=== PATIENT | female | born 1980 | race American Indian/Alaskan Native ===

== ENCOUNTER 2016-07-26 07:15 | Emergency (ER) | payer BC ==
[2016-07-26 07:25] VITALS: BP 121/83
--- NOTE | 2016-07-26 07:52 | EDM.PDOC ---
ED HPI GENERAL MEDICAL PROBLEM - General Chief Complaint: Fever Stated Complaint: hi fever [phone] Time Seen by Provider: 07/26/16 07:44 Source of Information: Reports: Patient History Limitations: Reports: No Limitations - History of Present Illness INITIAL COMMENTS - FREE TEXT/NARRATIVE: Pt states that she has been treated for strep throat and antibiotic ended on Thursday, she began having body aches, cough and fever as high as 100.6. C/o productive cough since thursday. 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, Other Medication(s) (hydrocodone and OTC cough medication) Generalized Pain Score (Numeric/FACES): 7 - Related Data Allergies Allergy/AdvReac Type Severity Reaction Status Date / Time clindamycin Allergy Hives Verified 07/26/16 07:27 Home Meds: Home Meds Omeprazole [Prilosec] 2 tab PO DAILY 08/10/14 [History] Hydrocodone/Acetaminophen [[place] 10-325 Tablet] 1 tab PO BEDTIME 12/16/15 [ History] Sertraline HCl [Zoloft] 1 tab PO DAILY 12/16/15 [History] Past Medical History HEENT History: Reports: Other (See Below) Other HEENT History: wears glasses Cardiovascular History: Reports: None Respiratory History: Reports: None Gastrointestinal History: Reports: GERD, Helicobacter Pylori Other Gastrointestinal History: H-pilori Genitourinary History: Reports: None 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: Musculoskeletal History: Reports: Other (See Below) Other Musculoskeletal History: plantar fasciitis Neurological History: Reports: None Psychiatric History: Reports: Anxiety Endocrine/Metabolic History: Reports: None Hematologic History: Reports: None Immunologic History: Reports: None Oncologic (Cancer) History: Reports: None Dermatologic History: Reports: Other (See Below) Other Dermatologic History: MRSA - Infectious Disease History Infectious Disease History: Reports: MRSA - Past Surgical History Other HEENT Surgeries/Procedures: DX; Strepthroat 01/15/15 Social & Family History - Family History Family Medical History: Noncontributory Endocrine/Metabolic: Reports: Diabetes, type II Oncologic: Reports: Breast, Lung - Tobacco Use Smoking Status *Q: Never Smoker Years of Tobacco use: 7 Month Tobacco Last Used: 07/26/2000 Second Hand Smoke Exposure: No - Caffeine Use Caffeine Use: Reports: Tea - Recreational Drug Use Recreational Drug Use: No - Living Situation & Occupation Living situation: Reports: with Family ED ROS GENERAL - Review of Systems Review Of Systems: See Below Constitutional: Reports: Fever, Malaise HEENT: Reports: Throat Pain Respiratory: Reports: Wheezing, Cough ED EXAM, GENERAL - Physical Exam Exam: See Below Exam Limited By: No Limitations General Appearance: Alert, WD/WN, No Apparent Distress Eye Exam: Bilateral Eye: Normal Inspection, PERRL Ears: Normal External Exam, Normal Canal, Hearing Grossly Normal Ear Exam: Right Ear: TM Dull, Left Ear: TM normal (R mild effusion) Nose: Normal Inspection, Normal Mucosa, No Blood Throat/Mouth: Normal Inspection, Normal Lips, Normal Teeth, Normal Gums, Normal Oropharynx, Normal Voice, No Airway Compromise Neck: Normal Inspection, Supple, Non-Tender, Full Range of Motion Respiratory/Chest: No Respiratory Distress, Crackles (R lung throughout, greater at bases, L lung WNL) Cardiovascular: Normal Peripheral Pulses, Regular Rate, Rhythm, No Edema, No Gallop, No JVD, No Murmur, No Rub GI/Abdominal: Normal Bowel Sounds, Soft, Non-Tender, No Organomegaly, No Distention, No Abnormal Bruit, No Mass Neurological: Alert, Oriented, CN II-XII Intact, Normal Cognition, Normal Gait, Normal Reflexes, No Motor/Sensory Deficits Skin Exam: Warm, Dry, Intact, Normal Color, Rash (BUE with mild erythematous rash to dorsum of forearms. ) Course - Vital Signs Last Recorded V/S: Last Vital Signs Temp 98.2 F 07/26/16 07:21 Pulse 109 H 07/26/16 07:21 Resp 16 07/26/16 07:21 BP 121/83 07/26/16 07:21 Pulse Ox 94 L 07/26/16 07:21 - Orders/Labs/Meds Orders: Active Orders 24 hr Category Date Time Status Chest 2V [CR] Stat Exams 07/26/16 07:58 Taken Sodium Chloride 0.9% [Saline Flush] Med 07/26/16 07:58 Active 10 ml FLUSH ASDIRECTED PRN Saline Lock Insert [OM.PC] Stat Oth 07/26/16 07:58 Ordered Medication Orders Sodium Chloride (Saline Flush) 10 ml FLUSH ASDIRECTED PRN PRN Reason: Keep Vein Open Last Admin: 07/26/16 08:28 Dose: 10 ml Labs: Laboratory Tests 07/26/16 07/26/16 07/26/16 Range/Units 08:09 08:09 08:17 WBC 13.4 H (5.0-10.0) 10^3/uL RBC 4.59 (4.2-5.4) 10^6/uL Hgb 13.3 (12.0-16.0) g/dL Hct 40.5 (37.0-47.0) % MCV 88.2 (80-100) fL MCH 29.0 (27.0-34.0) pg MCHC 32.8 L (33.0-35.0) g/dL Plt Count 285 (150-450) 10^3/uL Neut % (Auto) 84.8 H (42.2-75.2) % Lymph % (Auto) 7.4 L (20.5-50.1) % [place] % (Auto) 3.9 (2-8) % Eos % (Auto) 3.8 H (1.0-3.0) % Baso % (Auto) 0.1 (0.0-1.0) % Sodium 137 (135-145) mmol/L Potassium 3.9 (3.6-5.0) mmol/L Chloride 105 (101-111) mmol/L Carbon Dioxide 21.0 (21.0-31.0) mmol/L Anion Gap 14.9 BUN 5 L (7-18) mg/dL Creatinine 0.7 (0.6-1.3) mg/dL Est Cr Clr Drug Dosing 107.00 mL/min Estimated GFR (MDRD) > 60 Glucose 119 H (74-105) mg/dL Calcium 8.8 (8.4-10.2) mg/dl Urine HCG, Qual Negative Meds: Medications Generic Name Dose Route Start Last Admin Trade Name Freq PRN Reason Stop Dose Admin Sodium Chloride 10 ml 07/26/16 07:58 07/26/16 08:28 Saline Flush FLUSH 10 ml ASDIRECTED PRN Administration Keep Vein Open Discontinued Medications Generic Name Dose Route Start Last Admin Trade Name Freq PRN Reason Stop Dose Admin Sodium Chloride 500 mls @ 1,000 mls/hr 07/26/16 08:01 07/26/16 08:28 Normal Saline IV 07/26/16 08:30 1,000 mls/hr .BOLUS ONE Administration - Radiology Interpretation Free Text/Narrative:: patchy R lower lobe infiltrates, will treat for pneumonia Departure - Departure Time of Disposition: 09:33 Disposition: Home, Self-Care 01 Condition: Good Clinical Impression: Pneumonia Qualifiers: Pneumonia type: due to unspecified organism Laterality: right Lung location: lower lobe of lung Qualified Code(s): J18.1 - Lobar pneumonia, unspecified organism - Discharge Information Instructions: Atelectasis, Adult, Pneumonia, Child, Fever, Adult, [id number] Forms: ED Department Discharge Additional Instructions: Take the levaquin 750mg every day for 7 days 1 hours before or 2 hours after eating. Return for any worsening symptoms, shortness of breath or chest pain. Take OTC tylenol or motrin for fever. drink plenty of fluids to stay hydrated. Take albuterol inhaler for any shortness of breath. - My Orders Last 24 Hours: My Active Orders 07/26/16 07:58 Chest 2V [CR] Stat Sodium Chloride 0.9% [Saline Flush] 10 ml FLUSH ASDIRECTED PRN Saline Lock Insert [OM.PC] Stat - Assessment/Plan Last 24 Hours: My Active Orders 07/26/16 07:58 Chest 2V [CR] Stat Sodium Chloride 0.9% [Saline Flush] 10 ml FLUSH ASDIRECTED PRN Saline Lock Insert [OM.PC] Stat
[2016-07-26] MEDS ORDERED: Sodium Chloride 0.9% 10 ML Syringe FLUSH PRN (07:58)
[2016-07-26] MEDS ORDERED: Sodium Chloride 0.9% 500 ML IV ONE (08:01)
[2016-07-26 08:33] LABS: CHLORIDE,CL 105 mmol/L (101-111); SODIUM,NA 137 mmol/L (135-145)
== END 2016-07-26 09:57 | disposition home or self-care (01) ==
LOC: DL.ED 07:15
DX: J18.9 Pneumonia, unspecified organism (principal); K21.9 Gastro-esophageal reflux disease without esophagitis; F41.9 Anxiety disorder, unspecified; Z88.1 Allergy status to other antibiotic agents; Z79.899 Other long term (current) drug therapy
CPT/HCPCS: 36415; 71020; 80048; 81025; 85025; 96360; 99283; J7030; J7050

== ENCOUNTER 2016-08-13 11:02 | Emergency (ER) | payer BC ==
[2016-08-13 11:49] VITALS: BP 137/93
--- NOTE | 2016-08-13 11:53 | EDM.PDOC ---
ED HPI GENERAL MEDICAL PROBLEM - General Chief Complaint: Gastrointestinal Problem Stated Complaint: SICK [phone] Time Seen by Provider: 08/13/16 11:53 Source of Information: Reports: Patient, Old Records, RN, RN Notes Reviewed History Limitations: Reports: No Limitations - History of Present Illness INITIAL COMMENTS - FREE TEXT/NARRATIVE: Arrives from home by POV with c/o waking with upper abdominal pain and nausea. Pt states that she has felt feverish and hot on and off today. Yesterday she felt well, and was well when she went to bed last night. She was Dx'd with pneumonia approx. 2 weeks ago and recently completed a course of antibiotics. Admits to mild residual cough, and decreased appetite today. Denies vomiting, diarrhea, or constipation. Onset: Today Duration: Constant Location: Reports: Abdomen Quality: Reports: Ache Severity: Moderate Improves with: Reports: None Worsens with: Reports: None Context: Denies: Activity, Exercise, Lifting, Sick Contact, Trauma Associated Symptoms: Reports: No Other Symptoms - Related Data Allergies Allergy/AdvReac Type Severity Reaction Status Date / Time clindamycin Allergy Hives Verified 07/26/16 07:27 Home Meds: Home Meds Omeprazole [Prilosec] 2 tab PO DAILY 08/10/14 [History] Hydrocodone/Acetaminophen [[place] 10-325 Tablet] 1 tab PO BEDTIME 12/16/15 [ History] Sertraline HCl [Zoloft] 1 tab PO DAILY 12/16/15 [History] Past Medical History HEENT History: Reports: Other (See Below) Other HEENT History: wears glasses Cardiovascular History: Reports: None Respiratory History: Reports: None Gastrointestinal History: Reports: GERD, Helicobacter Pylori Other Gastrointestinal History: H-pilori Genitourinary History: Reports: None 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: Musculoskeletal History: Reports: Other (See Below) Other Musculoskeletal History: plantar fasciitis Neurological History: Reports: None Psychiatric History: Reports: Anxiety Endocrine/Metabolic History: Reports: None Hematologic History: Reports: None Immunologic History: Reports: None Oncologic (Cancer) History: Reports: None Dermatologic History: Reports: Other (See Below) Other Dermatologic History: MRSA - Infectious Disease History Infectious Disease History: Reports: MRSA - Past Surgical History Other HEENT Surgeries/Procedures: DX; Strepthroat 01/15/15 Social & Family History - Family History Family Medical History: Noncontributory Endocrine/Metabolic: Reports: Diabetes, type II Oncologic: Reports: Breast, Lung - Tobacco Use Smoking Status *Q: Never Smoker Years of Tobacco use: 7 Month Tobacco Last Used: 07/26/2000 Second Hand Smoke Exposure: No - Caffeine Use Caffeine Use: Reports: Tea - Recreational Drug Use Recreational Drug Use: No - Living Situation & Occupation Living situation: Reports: with Family ED ROS GENERAL - Review of Systems Review Of Systems: ROS reveals no pertinent complaints other than HPI. ED EXAM, GI/ABD - Physical Exam Exam: See Below Exam Limited By: No Limitations General Appearance: Alert, WD/WN, No Apparent Distress Nose: Normal Inspection Throat/Mouth: Normal Lips, Normal Teeth, Normal Gums, Normal Oropharynx, Normal Voice, No Airway Compromise, Other (dry oral membranes) Head: Atraumatic, Normocephalic Neck: Normal Inspection, Supple, Non-Tender, Full Range of Motion. No: Lymphadenopathy (L), Lymphadenopathy (R) Respiratory/Chest: No Respiratory Distress, No Accessory Muscle Use, Chest Non- Tender, Rhonchi (faint rhonchi at Rt posterior mid-lung field). No: Crackles, Rales, Wheezing Cardiovascular: Regular Rate, Rhythm GI/Abdominal: Normal Bowel Sounds, Soft, Non-Tender, No Organomegaly, No Distention, No Abnormal Bruit, No Mass, Other (moderately obese abdomen) (Female) Exam: Deferred Rectal (Female) Exam: Deferred Back Exam: Normal Inspection. No: CVA Tenderness (L), CVA Tenderness (R) Extremities: Normal Inspection, Normal Range of Motion, Non-Tender, Normal Capillary Refill, No Pedal Edema Neurological: Alert, Oriented, CN II-XII Intact, Normal Cognition, Normal Gait, No Motor/Sensory Deficits Psychiatric: Normal Affect, Normal Mood Skin Exam: Warm, Dry, Intact, Normal Color, No Rash Course - Vital Signs Last Recorded V/S: Last Vital Signs Temp 36.6 C 08/13/16 11:48 Pulse 73 08/13/16 11:48 Resp 18 08/13/16 11:48 BP 137/93 H 08/13/16 11:48 Pulse Ox 100 08/13/16 11:48 - Orders/Labs/Meds Orders: Active Orders 24 hr Category Date Time Status Peripheral IV Care [RC] . DIRECTED Care 08/13/16 12:11 Active CHLAMYDIA TRACHOMATIS/GC AMPLF Routine Lab 08/13/16 12:21 Received CULTURE URINE [RM] Stat Lab 08/13/16 12:21 Received Sodium Chloride 0.9% [Normal Saline] 1,000 ml Med 08/13/16 12:12 Active IV .BOLUS Sodium Chloride 0.9% [Saline Flush] Med 08/13/16 12:11 Active 10 ml FLUSH ASDIRECTED PRN cefTRIAXone [Rocephin] 1 gm Med 08/13/16 13:02 Active Sodium Chloride 0.9% [Normal Saline] 50 ml IV ONETIME Peripheral IV Insertion Adult [OM.PC] Stat Oth 08/13/16 12:11 Ordered Medication Orders Sodium Chloride (Normal Saline) 1,000 mls @ 999 mls/hr IV .BOLUS ONE Stop: 08/13/16 13:12 Last Admin: 08/13/16 12:35 Dose: 999 mls/hr Ceftriaxone Sodium 1 gm/ (Sodium Chloride) 50 mls @ 100 mls/hr IV ONETIME ONE Stop: 08/13/16 13:31 Sodium Chloride (Saline Flush) 10 ml FLUSH ASDIRECTED PRN PRN Reason: Keep Vein Open Last Admin: 08/13/16 12:36 Dose: 10 ml Labs: Laboratory Tests 08/13/16 08/13/16 08/13/16 Range/Units 12:21 12:21 12:24 WBC 9.8 (5.0-10.0) 10^3/uL RBC 4.63 (4.2-5.4) 10^6/uL Hgb 13.3 (12.0-16.0) g/dL Hct 41.5 (37.0-47.0) % MCV 89.6 (80-100) fL MCH 28.7 (27.0-34.0) pg MCHC 32.0 L (33.0-35.0) g/dL Plt Count 385 (150-450) 10^3/uL Neut % (Auto) 64.8 (42.2-75.2) % Lymph % (Auto) 25.6 (20.5-50.1) % [place] % (Auto) 6.0 (2-8) % Eos % (Auto) 3.3 H (1.0-3.0) % Baso % (Auto) 0.3 (0.0-1.0) % Sodium (135-145) mmol/L Urine Color Yellow (YELLOW) Urine Appearance Clear (CLEAR) Urine pH 6.0 (5.0-9.0) Ur Specific [place] 1.020 (1.005-1.030) Urine Protein Negative (NEGATIVE) Urine Glucose (UA) Negative (NEGATIVE) Urine Ketones Negative (NEGATIVE) Urine Occult Blood Negative (NEGATIVE) Urine Nitrite Negative (NEGATIVE) Urine Bilirubin Negative (NEGATIVE) Urine Urobilinogen 0.2 (0.2-1.0) mg/dL Ur Leukocyte Esterase Trace H (NEGATIVE) Urine RBC 0-5 /HPF Urine WBC 10-20 H (0-5/HPF) /HPF Ur Epithelial Cells Few /HPF Urine Bacteria Moderate H (0-FEW/HPF) /HPF Urine Mucus Not seen /LPF Urine HCG, Qual Negative 08/13/16 Range/Units 12:24 WBC (5.0-10.0) 10^3/uL RBC (4.2-5.4) 10^6/uL Hgb (12.0-16.0) g/dL Hct (37.0-47.0) % MCV (80-100) fL MCH (27.0-34.0) pg MCHC (33.0-35.0) g/dL Plt Count (150-450) 10^3/uL Neut % (Auto) (42.2-75.2) % Lymph % (Auto) (20.5-50.1) % [place] % (Auto) (2-8) % Eos % (Auto) (1.0-3.0) % Baso % (Auto) (0.0-1.0) % Sodium 139 (135-145) mmol/L Urine Color (YELLOW) Urine Appearance (CLEAR) Urine pH (5.0-9.0) Ur Specific [place] (1.005-1.030) Urine Protein (NEGATIVE) Urine Glucose (UA) (NEGATIVE) Urine Ketones (NEGATIVE) Urine Occult Blood (NEGATIVE) Urine Nitrite (NEGATIVE) Urine Bilirubin (NEGATIVE) Urine Urobilinogen (0.2-1.0) mg/dL Ur Leukocyte Esterase (NEGATIVE) Urine RBC /HPF Urine WBC (0-5/HPF) /HPF Ur Epithelial Cells /HPF Urine Bacteria (0-FEW/HPF) /HPF Urine Mucus /LPF Urine HCG, Qual See scanned entry for CMP results (lab analyzer is down, clinic processed CMP). Meds: Medications Generic Name Dose Route Start Last Admin Trade Name Freq PRN Reason Stop Dose Admin Sodium Chloride 1,000 mls @ 999 mls/hr 08/13/16 12:12 08/13/16 12:35 Normal Saline IV 08/13/16 13:12 999 mls/hr .BOLUS ONE Administration Ceftriaxone Sodium 1 gm/ 50 mls @ 100 mls/hr 08/13/16 13:02 Sodium Chloride IV 08/13/16 13:31 ONETIME ONE Sodium Chloride 10 ml 08/13/16 12:11 08/13/16 12:36 Saline Flush FLUSH 10 ml ASDIRECTED PRN Administration Keep Vein Open Discontinued Medications Generic Name Dose Route Start Last Admin Trade Name Freq PRN Reason Stop Dose Admin Famotidine 20 mg 08/13/16 12:13 08/13/16 12:36 Pepcid IVPUSH 08/13/16 12:14 20 mg ONETIME ONE Administration Ondansetron HCl 4 mg 08/13/16 12:12 08/13/16 12:37 Zofran IV 08/13/16 12:13 4 mg ONETIME ONE Administration - Radiology Interpretation Free Text/Narrative:: CXR: RLL infiltrate resolved compared to July 26, 2016 CXR, with residual right middle lobe and patchy lingular atelectasis per Rad. report. Departure - Departure Time of Disposition: 13:16 Disposition: Home, Self-Care 01 Condition: Fair Clinical Impression: Atelectasis, Upper abdominal pain UTI (urinary tract infection) Qualifiers: Urinary tract infection type: acute pyelonephritis Qualified Code(s): N10 - Acute pyelonephritis - Discharge Information Instructions: Pyelonephritis, Adult, [place]q-[place], Abdominal Pain, Adult, Easy- to-Read, Atelectasis, Adult Forms: ED Department Discharge Additional Instructions: Rx: Levaquin 500mg Rx: Phenergan 25mg Rx: Omeprazole 20mg Drink plenty of water. Follow up in clinic in 5 to 6 days for recheck. - My Orders Last 24 Hours: My Active Orders 08/13/16 12:11 Peripheral IV Care [RC] . DIRECTED Sodium Chloride 0.9% [Saline Flush] 10 ml FLUSH ASDIRECTED PRN Peripheral IV Insertion Adult [OM.PC] Stat 08/13/16 12:12 Sodium Chloride 0.9% [Normal Saline] 1,000 ml IV .BOLUS 08/13/16 12:21 CHLAMYDIA TRACHOMATIS/GC AMPLF Routine CULTURE URINE [RM] Stat 08/13/16 13:02 cefTRIAXone [Rocephin] 1 gm Sodium Chloride 0.9% [Normal Saline] 50 ml IV ONETIME - Assessment/Plan Last 24 Hours: My Active Orders 08/13/16 12:11 Peripheral IV Care [RC] . DIRECTED Sodium Chloride 0.9% [Saline Flush] 10 ml FLUSH ASDIRECTED PRN Peripheral IV Insertion Adult [OM.PC] Stat 08/13/16 12:12 Sodium Chloride 0.9% [Normal Saline] 1,000 ml IV .BOLUS 08/13/16 12:21 CHLAMYDIA TRACHOMATIS/GC AMPLF Routine CULTURE URINE [RM] Stat 08/13/16 13:02 cefTRIAXone [Rocephin] 1 gm Sodium Chloride 0.9% [Normal Saline] 50 ml IV ONETIME
[2016-08-13] MEDS ORDERED: Sodium Chloride 0.9% 10 ML Syringe FLUSH PRN (12:11)
[2016-08-13] MEDS ORDERED: Ondansetron 4 MG/2 ML SDV IV ONE ×2 (12:12→13:30)
[2016-08-13] MEDS ORDERED: Sodium Chloride 0.9% 1,000 ML IV ONE (12:12)
[2016-08-13] MEDS ORDERED: Famotidine 20 MG/2 ML SDV IVPUSH ONE (12:13)
--- NOTE | 2016-08-13 12:46 | CR ---
Clinical history: 36-year-old female with cough (recent "pneumonia"). Interpretation: Some patchy lingular and residual right middle lobe atelectasis vs. postinflammatory fibrosis, howev er, the pneumonic like consolidation reported on the right 26 July 2016 exam has definitely cleared i.e. improved. Normal cardiac silhouette without alveolar edema or dependent effusion. No new lung mass, hilar lymphadenopathy or focal lobar pneumonia.
[2016-08-13] MEDS ORDERED: cefTRIAXone 1 GM in Sodium Chloride 0.9% 50 ML IV ONE (13:02)
[2016-08-13 13:05] LABS: SODIUM,NA 139 mmol/L (135-145)
== END 2016-08-13 14:21 | disposition home or self-care (01) ==
LOC: DL.ED 11:02
DX: R10.10 Upper abdominal pain, unspecified (principal); J98.11 Atelectasis; N10 Acute pyelonephritis; K21.9 Gastro-esophageal reflux disease without esophagitis; F41.9 Anxiety disorder, unspecified; Z86.14 Personal history of Methicillin resistant Staphylococcus aureus infection; Z88.1 Allergy status to other antibiotic agents; Z79.899 Other long term (current) drug therapy
CPT/HCPCS: 36415; 71020; 80053; 81001; 81025; 82150; 83690; 85025; 87086; 87491; 87591; 96361; 96365; 96375; 96376; 99284; J0696; J2405; J7030; J7050; S0028

== ENCOUNTER 2017-03-19 07:04 | Day surgery (SDC) | payer BC ==
[~2017-03-19 07:04] MED LIST: Lactated Ringers 1,000 ML IV SCH; Sodium Chloride 0.9% 10 ML Syringe FLUSH PRN; ceFAZolin 1 GM in Premix Bag 1 BAG IV ONE
[2017-03-19] MEDS ORDERED: fentaNYL 100 MCG/2 ML SDV IV ONE (07:05)
[2017-03-19] MEDS ORDERED: Midazolam 1 MG/ML 2 ML SDV IV ONE (07:05)
[2017-03-19] MEDS ORDERED: Ketorolac 30 MG/ML SDV IVPUSH ONE (07:05)
[2017-03-19] MEDS ORDERED: Propofol 200 MG/20 ML SDV IV ONE (07:05)
[2017-03-19] MEDS ORDERED: Bupivacaine 0.5%/EPINEPHrine 1:200,000 10 ML SDV ONE (07:33)
[2017-03-19] MEDS ORDERED: Lidocaine 1% 30 ML SDV ONE (07:34)
[2017-03-19] MEDS ORDERED: Lidocaine 1% 30 ML SDV INJECT ONE ×4 (12:21→12:59)
[2017-03-19] MEDS ORDERED: Bupivacaine 0.5%/EPINEPHrine 1:200,000 10 ML SDV INJECT ONE ×4 (12:21→12:59)
[2017-03-19] MEDS ORDERED: Acetaminophen/oxyCODONE 325-5 MG Tab PO PRN (13:12)
--- NOTE | 2017-03-19 13:15 | PCM.OPNOTE ---
- General Post-Op/Procedure Note Date of Surgery/Procedure: 03/19/17 Operative Procedure(s): left foot open plantar fasciectomy Findings: Palpable bone spur was present in the surgical site so it was filled down with a rasp Pre Op Diagnosis: left foot plantar fasciitis Post-Op Diagnosis: noni Anesthesia Technique: Local, MAC Primary Surgeon: Lori Valadez Anesthesia Provider: Chucho Villagomez EBL in mLs: 5 Complications: none Condition: Good Free Text/Narrative:: Pt tolerated procedure well and was transported to recovery with vascular status intact to left foot upon deflation of ankle tourniquet. TT 29 mins. I was able to palpate the plantar heel spur in the surgical site so that was filed down along with plantar fascia release. Pt placed in well padded L&U splint with foot in slight dorsiflexion.
[2017-03-19 14:39] VITALS: BP 118/81
--- NOTE | 2017-03-19 20:32 | OR ---
DATE: 03/19/2017 PREOPERATIVE DIAGNOSIS: Left foot plantar fasciitis with bone spur. POSTOPERATIVE DIAGNOSIS: Left foot plantar fasciitis with bone spur. PROCEDURE PERFORMED: Left foot open plantar fasciectomy with filing down of the bone spur. ANESTHESIA: Local MAC with preoperative local block of 10 mL 1:1 mixture of 1% lidocaine plain and 0.5% Marcaine plain. TOURNIQUET TIME: 29 minutes. Pneumatic ankle tourniquet. ESTIMATED BLOOD LOSS: Minimal. SPECIMEN REMOVED: None. COMPLICATIONS: None. FINDINGS: I was able to palpate the bone spur after the release of the plantar fascia and this was filed down. INDICATIONS: This is a 36-year-old female, who presents with chronic left heel pain. I last saw her a few months ago, I have done a few rounds of injections of cortisone to the area, which worked for a few weeks each time, really did not work at the last injection in August. We have tried shoe inserts, injections, physical therapy, stretching, night splint with no relief. The pain is 8/10 at worst and started 6 years ago. It is really not resolved since that time. She states that it does feel like there is a painful knot at the bottom of her heel. X-rays of the left foot reveal no signs of fracture present, plantar heel spur present. The patient voiced good understanding of the proposed procedure and possible complications, elects to have surgery at this time. I did go through the x-rays with her in the preop area, and she does have a small bone spur, we decided that if it is palpable in the incision site, then I will file it down, and she agrees to that. DESCRIPTION OF THE PROCEDURE: The patient was taken to the operating room lying in the supine position. After adequate anesthesia induction as described above, the left foot was prepped and draped in usual sterile fashion. A pneumatic ankle tourniquet was inflated to 225 mmHg. Attention was then directed to the instep of the left foot just distal to the calcaneal fat pad where an approximately 3 cm linear incision was made to gain access to the medial and central band of the plantar fascia. Sharp and blunt dissection were performed down to the level of the central band of the plantar fascia. An approximately 1 cm2 section of the central and medial band of the plantar fascia was resected at this time. I did inspect the area and it was noted to palpate the heel spur very easily. I then took a bone rasp and rasped the plantar heel spur. Further inspection of the area revealed no further tightness at the plantar fascia band. The area was irrigated with copious amounts of sterile saline. Deep closure was completed with 3-0 Vicryl and skin closure was completed with 4-0 nylon. The area was then dressed with Xeroform to the incision site, fluffs, Webril, and a well-padded L and U splint with the foot and ankle in slight dorsiflexion. She was placed on crutches and will be nonweightbearing. She was then discharged home when she met hospital discharge requirements. [facility] /[id number]
== END 2017-03-19 14:34 | disposition home or self-care (01) ==
LOC: DL.SDS 07:04
PROVIDERS: ATTEND Podiatrist
DX: M72.2 Plantar fascial fibromatosis (principal); M77.52 Other enthesopathy of left foot and ankle; K21.9 Gastro-esophageal reflux disease without esophagitis; F32.9 Major depressive disorder, single episode, unspecified; F41.1 Generalized anxiety disorder; E55.9 Vitamin D deficiency, unspecified; Z79.899 Other long term (current) drug therapy; Z88.1 Allergy status to other antibiotic agents; Z88.8 Allergy status to other drugs, medicaments and biological substances
CPT/HCPCS: 81025; A9270-GY; J0690; J1885; J2250; J2704; J3010; J7120

== ENCOUNTER 2017-05-02 13:22 | Emergency (ER) | payer BC ==
[2017-05-02 13:29] VITALS: BP 122/80
[2017-05-02] MEDS: Sodium Chloride 0.9% 1,000 ML IV ONE (14:01)
[2017-05-02] MEDS: Ondansetron 4 MG/2 ML SDV IV ONE (14:02)
[2017-05-02] MEDS: Sodium Chloride 0.9% 10 ML Syringe FLUSH PRN (14:04)
[2017-05-02 14:23] LABS: CHLORIDE,CL 103 mmol/L (101-111); SODIUM,NA 136 mmol/L (135-145)
--- NOTE | 2017-05-02 16:15 | EDM.PDOC ---
Scribed by Michelle Bonilla 05/02/17 [id number] for Denisse Kimball NP ED HPI GENERAL MEDICAL PROBLEM - General Chief Complaint: General Stated Complaint: DIZZY, FAINT Time Seen by Provider: 05/02/17 13:44 Source of Information: Reports: Patient, RN, RN Notes Reviewed History Limitations: Reports: No Limitations - History of Present Illness INITIAL COMMENTS - FREE TEXT/NARRATIVE: Patient presents to ER with complaint of dizziness, nausea, and vomiting this morning. Denies dizzy spells in the past. She admits to anemia. Denies pain at this time. She has had shortness of breath, palpitations, tired, nausea, vomiting and fever. No chest pain, cough, diarrhea or chills. She has had heavy flow which is abnormal for the last 2 weeks. LMP was first week april. Onset: Today Duration: Getting Worse Location: Reports: Generalized Quality: Reports: Other (dizzy) Severity: Mild Improves with: Reports: None Worsens with: Reports: None Associated Symptoms: Reports: No Other Symptoms - Related Data Allergies Allergy/AdvReac Type Severity Reaction Status Date / Time clindamycin Allergy Hives Verified 05/02/17 13:37 Home Meds: Home Meds Omeprazole [Prilosec] 20 mg PO DAILY 08/10/14 [History] Hydrocodone/Acetaminophen [[place] 10-325 Tablet] 1 tab PO BID PRN 12/16/15 [ History] Sertraline HCl [Zoloft] 50 mg PO DAILY 12/16/15 [History] Cetirizine [ZyrTEC] 10 mg PO DAILY 03/17/17 [History] Cholecalciferol (Vitamin D3) [Vitamin D3] 1 tab PO BID 03/17/17 [History] Ferrous Sulfate [Iron] 325 mg PO BID 03/17/17 [History] Ibuprofen [Advil] 800 mg PO BID PRN 03/17/17 [History] Acetaminophen [Tylenol] 650 mg PO DAILY PRN 03/19/17 [History] Past Medical History HEENT History: Reports: Other (See Below) Other HEENT History: wears glasses Cardiovascular History: Reports: None Respiratory History: Reports: Pneumonia, Recurrent Gastrointestinal History: Reports: GERD, Helicobacter Pylori Other Gastrointestinal History: H-pilori Genitourinary History: Reports: UTI, Recurrent, Other (See Below) (kidney infection) 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 OB/BYN History: Menorrhagia Musculoskeletal History: Reports: Other (See Below) Other Musculoskeletal History: plantar fasciitis Neurological History: Reports: None Psychiatric History: Reports: Anxiety, Depression Endocrine/Metabolic History: Reports: Vitamin D Deficiency Hematologic History: Reports: Iron Deficiency Immunologic History: Reports: None Oncologic (Cancer) History: Reports: None Dermatologic History: Reports: Other (See Below) Other Dermatologic History: MRSA - Infectious Disease History Infectious Disease History: Reports: Chicken Pox, MRSA - Past Surgical History Head Surgeries/Procedures: Reports: None Other HEENT Surgeries/Procedures: DX; Strepthroat 01/15/15 Cardiovascular Surgical History: Reports: None Respiratory Surgical History: Reports: None GI Surgical History: Reports: EGD Female Surgical History: Reports: None Endocrine Surgical History: Reports: None Neurological Surgical History: Reports: None Musculoskeletal Surgical History: Reports: None Oncologic Surgical History: Reports: None Social & Family History - Family History Family Medical History: Noncontributory Endocrine/Metabolic: Reports: Diabetes, type II Oncologic: Reports: Breast, Lung - Tobacco Use Smoking Status *Q: Never Smoker Years of Tobacco use: 7 Month/Year Tobacco Last Used: 07/26/2000 Second Hand Smoke Exposure: No - Caffeine Use Caffeine Use: Reports: Tea - Recreational Drug Use Recreational Drug Use: No - Living Situation & Occupation Living situation: Reports: with Family ED ROS GENERAL - Review of Systems Review Of Systems: ROS reveals no pertinent complaints other than HPI. ED EXAM, GENERAL - Physical Exam Exam: See Below Exam Limited By: No Limitations General Appearance: Other (tired) Eye Exam: Bilateral Eye: Normal Inspection Ears: Normal External Exam, Normal Canal, Hearing Grossly Normal, Normal TMs Nose: Normal Inspection, Normal Mucosa, No Blood Throat/Mouth: Normal Inspection, Normal Lips, Normal Teeth, Normal Gums, Normal Oropharynx, Normal Voice, No Airway Compromise Head: Atraumatic, Normocephalic Neck: Normal Inspection, Supple, Non-Tender, Full Range of Motion Respiratory/Chest: No Respiratory Distress, Lungs Clear, Normal Breath Sounds, No Accessory Muscle Use, Chest Non-Tender Cardiovascular: Normal Peripheral Pulses, Regular Rate, Rhythm, No Edema, No Gallop, No JVD, No Murmur, No Rub GI/Abdominal: Normal Bowel Sounds, Soft, Non-Tender, No Organomegaly, No Distention, No Abnormal Bruit, No Mass (Female) Exam: Deferred Rectal (Female) Exam: Deferred Back Exam: Normal Inspection, Full Range of Motion, NT Extremities: Normal Inspection, Normal Range of Motion, Non-Tender, Normal Capillary Refill, No Pedal Edema Neurological: Alert, Oriented, CN II-XII Intact, Normal Cognition, Normal Gait, Normal Reflexes, No Motor/Sensory Deficits Psychiatric: Flat Affect Skin Exam: Warm, Dry, Intact, Normal Color, No Rash Lymphatic: No Adenopathy EKG INTERPRETATION EKG Date: 05/02/17 Time: 14:11 Rhythm: NSR Rate (Beats/Min): 85 Jadwin: LAD-Left Jadwin Deviation P-Wave: Present QRS: Normal ST-T: Normal QT: Prolonged Comparison: NA - No Prior EKG Course - Vital Signs Last Recorded V/S: Last Vital Signs Temp 97.2 F 05/02/17 13:27 Pulse 93 05/02/17 13:27 Resp 16 05/02/17 13:27 BP 122/80 05/02/17 13:27 Pulse Ox 96 05/02/17 13:27 - Orders/Labs/Meds Orders: Active Orders 24 hr Category Date Time Status EKG Documentation Completion [RC] STAT Care 05/02/17 13:51 Active POC Glucose [Blood Glucose Check, Bedside] [RC] ONETIME Care 05/02/17 13:34 Active Peripheral IV Care [RC] . DIRECTED Care 05/02/17 13:51 Active Peripheral IV Insertion Adult [OM.PC] Stat Oth 05/02/17 13:50 Ordered Labs: Laboratory Tests 05/02/17 05/02/17 05/02/17 Range/Units 13:35 13:56 13:56 WBC 14.1 H (5.0-10.0) 10^3/uL RBC 4.52 (4.2-5.4) 10^6/uL Hgb 12.9 (12.0-16.0) g/dL Hct 39.1 (37.0-47.0) % MCV 86.5 D (80-100) fL MCH 28.5 (27.0-34.0) pg MCHC 33.0 (33.0-35.0) g/dL Plt Count 321 (150-450) 10^3/uL Neut % (Auto) 66.1 (42.2-75.2) % Lymph % (Auto) 25.5 (20.5-50.1) % [place] % (Auto) 6.3 (2-8) % Eos % (Auto) 2.0 (1.0-3.0) % Baso % (Auto) 0.1 (0.0-1.0) % Sodium 136 (135-145) mmol/L Potassium 3.7 (3.6-5.0) mmol/L Chloride 103 (101-111) mmol/L Carbon Dioxide 23.0 (21.0-31.0) mmol/L Anion Gap 13.7 BUN 10 (7-18) mg/dL Creatinine 0.7 (0.6-1.3) mg/dL Est Cr Clr Drug Dosing 107.00 mL/min Estimated GFR (MDRD) > 60 BUN/Creatinine Ratio 14.28 Glucose 98 (74-105) mg/dL POC Glucose 85 (70-105) mg/dl Calcium 8.7 (8.4-10.2) mg/dl Total Bilirubin 0.5 (0.2-1.0) mg/dL AST 18 (10-42) IU/L ALT 19 (10-60) IU/L Alkaline Phosphatase 117 (42-121) IU/L Total Protein 7.0 (6.7-8.2) g/dl Albumin 3.7 (3.2-5.5) g/dl Globulin 3.3 Albumin/Globulin Ratio 1.12 Urine Color (YELLOW) Urine Appearance (CLEAR) Urine pH (5.0-9.0) Ur Specific [place] (1.005-1.030) Urine Protein (NEGATIVE) Urine Glucose (UA) (NEGATIVE) Urine Ketones (NEGATIVE) Urine Occult Blood (NEGATIVE) Urine Nitrite (NEGATIVE) Urine Bilirubin (NEGATIVE) Urine Urobilinogen (0.2-1.0) mg/dL Ur Leukocyte Esterase (NEGATIVE) Urine RBC /HPF Urine WBC (0-5/HPF) /HPF Ur Epithelial Cells /HPF Urine Bacteria (0-FEW/HPF) /HPF Urine Mucus /LPF Urine HCG, Qual Urine Opiates Screen (NEGATIVE) Ur Oxycodone Screen (NEGATIVE) Urine Methadone Screen (NEGATIVE) Ur Barbiturates Screen (NEGATIVE) U Tricyclic Antidepress (NEGATIVE) Ur Phencyclidine Scrn (NEGATIVE) Ur Amphetamine Screen (NEGATIVE) U Methamphetamines Scrn (NEGATIVE) Urine MDMA Screen (NEGATIVE) U Benzodiazepines Scrn (NEGATIVE) Urine Cocaine Screen (NEGATIVE) U Marijuana (THC) Screen (NEGATIVE) 05/02/17 05/02/17 05/02/17 Range/Units 14:25 14:25 14:25 WBC (5.0-10.0) 10^3/uL RBC (4.2-5.4) 10^6/uL Hgb (12.0-16.0) g/dL Hct (37.0-47.0) % MCV (80-100) fL MCH (27.0-34.0) pg MCHC (33.0-35.0) g/dL Plt Count (150-450) 10^3/uL Neut % (Auto) (42.2-75.2) % Lymph % (Auto) (20.5-50.1) % [place] % (Auto) (2-8) % Eos % (Auto) (1.0-3.0) % Baso % (Auto) (0.0-1.0) % Sodium (135-145) mmol/L Potassium (3.6-5.0) mmol/L Chloride (101-111) mmol/L Carbon Dioxide (21.0-31.0) mmol/L Anion Gap BUN (7-18) mg/dL Creatinine (0.6-1.3) mg/dL Est Cr Clr Drug Dosing mL/min Estimated GFR (MDRD) BUN/Creatinine Ratio Glucose (74-105) mg/dL POC Glucose (70-105) mg/dl Calcium (8.4-10.2) mg/dl Total Bilirubin (0.2-1.0) mg/dL AST (10-42) IU/L ALT (10-60) IU/L Alkaline Phosphatase (42-121) IU/L Total Protein (6.7-8.2) g/dl Albumin (3.2-5.5) g/dl Globulin Albumin/Globulin Ratio Urine Color Yellow (YELLOW) Urine Appearance Clear (CLEAR) Urine pH 6.0 (5.0-9.0) Ur Specific [place] 1.010 (1.005-1.030) Urine Protein Negative (NEGATIVE) Urine Glucose (UA) Negative (NEGATIVE) Urine Ketones Negative (NEGATIVE) Urine Occult Blood Negative (NEGATIVE) Urine Nitrite Negative (NEGATIVE) Urine Bilirubin Negative (NEGATIVE) Urine Urobilinogen 0.2 (0.2-1.0) mg/dL Ur Leukocyte Esterase Negative (NEGATIVE) Urine RBC 0-5 /HPF Urine WBC 0-5 (0-5/HPF) /HPF Ur Epithelial Cells Moderate H /HPF Urine Bacteria Rare (0-FEW/HPF) /HPF Urine Mucus Few H /LPF Urine HCG, Qual Negative Urine Opiates Screen Positive H (NEGATIVE) Ur Oxycodone Screen Negative (NEGATIVE) Urine Methadone Screen Negative (NEGATIVE) Ur Barbiturates Screen Negative (NEGATIVE) U Tricyclic Antidepress Negative (NEGATIVE) Ur Phencyclidine Scrn Negative (NEGATIVE) Ur Amphetamine Screen Negative (NEGATIVE) U Methamphetamines Scrn Negative (NEGATIVE) Urine MDMA Screen Negative (NEGATIVE) U Benzodiazepines Scrn Positive H (NEGATIVE) Urine Cocaine Screen Negative (NEGATIVE) U Marijuana (THC) Screen Negative (NEGATIVE) Meds: Medications Discontinued Medications Generic Name Dose Route Start Last Admin Trade Name Freq PRN Reason Stop Dose Admin Sodium Chloride 1,000 mls @ 999 mls/hr 05/02/17 13:51 05/02/17 14:01 Normal Saline IV 05/02/17 14:51 999 mls/hr .BOLUS ONE Administration Ondansetron HCl 4 mg 05/02/17 13:52 05/02/17 14:02 Zofran IV 05/02/17 13:53 4 mg ONETIME ONE Administration Sodium Chloride 10 ml 05/02/17 13:50 05/02/17 14:04 Saline Flush FLUSH 10 ml ASDIRECTED PRN Administration Keep Vein Open Departure - Departure Time of Disposition: 15:00 Disposition: Home, Self-Care 01 Condition: Fair Clinical Impression: Dizziness, Nausea and vomiting, Leukocytosis - Discharge Information Instructions: Nausea and Vomiting, Adult, [id number], Near-Syncope, Easy-to- Read, Dizziness, [id number] Referrals: PCP,None [Primary Care Provider] - Forms: ED Department Discharge Additional Instructions: Drink plenty of fluids Rest Follow up with your primary care facility next week - My Orders Last 24 Hours: My Active Orders 05/02/17 13:34 POC Glucose [Blood Glucose Check, Bedside] [RC] ONETIME 05/02/17 13:50 Peripheral IV Insertion Adult [OM.PC] Stat 05/02/17 13:51 EKG Documentation Completion [RC] STAT Peripheral IV Care [RC] . DIRECTED - Assessment/Plan Last 24 Hours: My Active Orders 05/02/17 13:34 POC Glucose [Blood Glucose Check, Bedside] [RC] ONETIME 05/02/17 13:50 Peripheral IV Insertion Adult [OM.PC] Stat 05/02/17 13:51 EKG Documentation Completion [RC] STAT Peripheral IV Care [RC] . DIRECTED I have read and agree with the documentation that has been completed regarding this visit. By signing this record, I attest that the documentation was completed in my physical presence and is an accurate record of the encounter.
--- NOTE | 2017-05-04 17:28 | EKG ---
05/02/2017 - JAZMIN SIMENTAL ANN - TIME: 1411 hours. FINDINGS: EKG shows sinus rhythm, rate of 89 per minute. There is a first- degree atrioventricular block. [facility] /[id number]
== END 2017-05-02 15:09 | disposition home or self-care (01) ==
LOC: DL.ED 13:22
DX: R42 Dizziness and giddiness (principal); R11.2 Nausea with vomiting, unspecified; D72.829 Elevated white blood cell count, unspecified; K21.9 Gastro-esophageal reflux disease without esophagitis; F32.9 Major depressive disorder, single episode, unspecified; F41.9 Anxiety disorder, unspecified; Z87.891 Personal history of nicotine dependence; Z79.899 Other long term (current) drug therapy; Z88.1 Allergy status to other antibiotic agents
CPT/HCPCS: 36415; 80053; 80305; 81001; 81025; 82962; 85025; 93005; 96361; 96374; 99284; J2405; J7030; J7050

== ENCOUNTER 2017-09-01 18:34 | Emergency (ER) | payer BC, OTHER ==
[2017-09-01] MEDS ORDERED: Sodium Chloride 0.9% 1,000 ML IV ONE (20:02)
[2017-09-01] MEDS ORDERED: Ondansetron 4 MG/2 ML SDV IV ONE (20:02)
--- NOTE | 2017-09-01 20:06 | EDM.PDOC ---
ED HPI GENERAL MEDICAL PROBLEM - General Chief Complaint: General Stated Complaint: [id number] SOB CANT SWALLOW Time Seen by Provider: 09/01/17 19:56 Source of Information: Reports: Patient History Limitations: Reports: No Limitations - History of Present Illness INITIAL COMMENTS - FREE TEXT/NARRATIVE: This 37 yo female patient reports to the ED with shortness of breath (started at 1500 today), generalized weakness, nausea and tiredness. The patient reports her symptoms started on Thursday and have continued since that time. The patient was seen in the clinic today (at 1300) and was told that she has a viral illness. The patient was started on a multivitamin and iron. When the patient's symptoms got worse, she decided to come to the ED for further evaluation. The patient reports that she has had pneumonia and a kidney infection in the past with similar symptoms. 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 Throat Pain Score (Numeric/FACES): 5 - Related Data Allergies Allergy/AdvReac Type Severity Reaction Status Date / Time clindamycin Allergy Hives Verified 09/01/17 18:41 Home Meds: Home Meds Omeprazole [Prilosec] 20 mg PO DAILY 08/10/14 [History] Hydrocodone/Acetaminophen [[place] 10-325 Tablet] 1 tab PO BID PRN 12/16/15 [ History] Sertraline HCl [Zoloft] 50 mg PO DAILY 12/16/15 [History] Cetirizine [ZyrTEC] 10 mg PO DAILY 03/17/17 [History] Cholecalciferol (Vitamin D3) [Vitamin D3] 1 tab PO BID 03/17/17 [History] Ibuprofen [Advil] 800 mg PO BID PRN 03/17/17 [History] Acetaminophen [Tylenol] 650 mg PO DAILY PRN 03/19/17 [History] Past Medical History HEENT History: Reports: Impaired Vision, Other (See Below) Other HEENT History: wears glasses Cardiovascular History: Reports: None Respiratory History: Reports: Pneumonia, Recurrent Gastrointestinal History: Reports: GERD, Helicobacter Pylori Other Gastrointestinal History: H-pilori Genitourinary History: Reports: UTI, Recurrent, Other (See Below) 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 Musculoskeletal History: Reports: Other (See Below) Other Musculoskeletal History: plantar fasciitis Neurological History: Reports: None Psychiatric History: Reports: Anxiety, Depression Endocrine/Metabolic History: Reports: Vitamin D Deficiency Hematologic History: Reports: Iron Deficiency Immunologic History: Reports: None Oncologic (Cancer) History: Reports: None Dermatologic History: Reports: Other (See Below) Other Dermatologic History: MRSA - Infectious Disease History Infectious Disease History: Reports: Chicken Pox, MRSA - Past Surgical History Head Surgeries/Procedures: Reports: None Other HEENT Surgeries/Procedures: DX; Strepthroat 01/15/15 Cardiovascular Surgical History: Reports: None Respiratory Surgical History: Reports: None GI Surgical History: Reports: EGD Female Surgical History: Reports: None Endocrine Surgical History: Reports: None Neurological Surgical History: Reports: None Musculoskeletal Surgical History: Reports: None Oncologic Surgical History: Reports: None Social & Family History - Family History Family Medical History: Noncontributory Endocrine/Metabolic: Reports: Diabetes, type II Oncologic: Reports: Breast, Lung - Tobacco Use Smoking Status *Q: Never Smoker - Caffeine Use Caffeine Use: Reports: Tea - Recreational Drug Use Recreational Drug Use: No - Living Situation & Occupation Living situation: Reports: with Family ED ROS GENERAL - Review of Systems Review Of Systems: ROS reveals no pertinent complaints other than HPI. ED EXAM, GENERAL - Physical Exam Exam: See Below Exam Limited By: No Limitations General Appearance: Alert, WD/WN, Mild Distress Eye Exam: Bilateral Eye: EOMI, Normal Inspection, PERRL Ears: Normal External Exam, Normal Canal, Hearing Grossly Normal, Normal TMs Nose: Normal Inspection, Normal Mucosa, No Blood Throat/Mouth: Normal Inspection, Normal Lips, Normal Teeth, Normal Gums, Normal Oropharynx, Normal Voice, No Airway Compromise Head: Atraumatic, Normocephalic Neck: Normal Inspection, Supple, Non-Tender, Full Range of Motion Respiratory/Chest: No Respiratory Distress, Lungs Clear, Normal Breath Sounds, No Accessory Muscle Use, Chest Non-Tender Cardiovascular: Normal Peripheral Pulses, Regular Rate, Rhythm, No Edema, No Gallop, No JVD, No Murmur, No Rub GI/Abdominal: Normal Bowel Sounds, Soft, Non-Tender, No Organomegaly, No Distention, No Abnormal Bruit, No Mass (Female) Exam: Deferred Rectal (Female) Exam: Deferred Back Exam: Normal Inspection, Full Range of Motion, NT Extremities: Normal Inspection, Normal Range of Motion, Non-Tender, Normal Capillary Refill, No Pedal Edema Neurological: Alert, Oriented, CN II-XII Intact, Normal Cognition, Normal Gait, Normal Reflexes, No Motor/Sensory Deficits Psychiatric: Normal Affect, Normal Mood Skin Exam: Warm, Dry, Intact, Normal Color, No Rash Lymphatic: No Adenopathy Course - Vital Signs Last Recorded V/S: Last Vital Signs Temp 36.6 C 09/01/17 21:09 Pulse 64 09/01/17 21:09 Resp 15 09/01/17 21:09 BP 121/73 09/01/17 21:09 Pulse Ox 99 09/01/17 21:09 - Orders/Labs/Meds Orders: Active Orders 24 hr Category Date Time Status HCG QUALITATIVE,URINE [URCHEM] Stat Lab 09/01/17 20:01 Ordered UA W/MICROSCOPIC [URIN] Stat Lab 09/01/17 20:01 Ordered Labs: Laboratory Tests 09/01/17 09/01/17 09/01/17 Range/Units 20:01 20:01 20:12 WBC (5.0-10.0) 10^3/uL RBC (4.2-5.4) 10^6/uL Hgb (12.0-16.0) g/dL Hct (37.0-47.0) % MCV (80-100) fL MCH (27.0-34.0) pg MCHC (33.0-35.0) g/dL Plt Count (150-450) 10^3/uL Neut % (Auto) (42.2-75.2) % Lymph % (Auto) (20.5-50.1) % [place] % (Auto) (2-8) % Eos % (Auto) (1.0-3.0) % Baso % (Auto) (0.0-1.0) % Sodium (135-145) mmol/L Potassium (3.6-5.0) mmol/L Chloride (101-111) mmol/L Carbon Dioxide (21.0-31.0) mmol/L Anion Gap BUN (7-18) mg/dL Creatinine (0.6-1.3) mg/dL Est Cr Clr Drug Dosing mL/min Estimated GFR (MDRD) BUN/Creatinine Ratio Glucose (74-105) mg/dL Calcium (8.4-10.2) mg/dl Total Bilirubin (0.2-1.0) mg/dL AST (10-42) IU/L ALT (10-60) IU/L Alkaline Phosphatase (42-121) IU/L Total Protein (6.7-8.2) g/dl Albumin (3.2-5.5) g/dl Globulin Albumin/Globulin Ratio Urine Color Light yellow (YELLOW) Urine Appearance Slightly cloudy (CLEAR) Urine pH 6.5 (5.0-9.0) Ur Specific [place] 1.010 (1.005-1.030) Urine Protein Negative (NEGATIVE) Urine Glucose (UA) Negative (NEGATIVE) Urine Ketones Negative (NEGATIVE) Urine Occult Blood Trace-intact H (NEGATIVE) Urine Nitrite Negative (NEGATIVE) Urine Bilirubin Negative (NEGATIVE) Urine Urobilinogen 0.2 (0.2-1.0) mg/dL Ur Leukocyte Esterase Trace H (NEGATIVE) Urine RBC 0-5 /HPF Urine WBC 5-10 H (0-5/HPF) /HPF Ur Epithelial Cells Rare /HPF Amorphous Sediment Rare (0/HPF) /HPF Urine Bacteria Rare (0-FEW/HPF) /HPF Urine Mucus Rare /LPF Urine HCG, Qual Negative Monoscreen Negative 09/01/17 09/01/17 Range/Units 20:12 20:12 WBC 10.2 H (5.0-10.0) 10^3/uL RBC 4.69 (4.2-5.4) 10^6/uL Hgb 13.2 (12.0-16.0) g/dL Hct 41.4 (37.0-47.0) % MCV 88.3 (80-100) fL MCH 28.1 (27.0-34.0) pg MCHC 31.9 L (33.0-35.0) g/dL Plt Count 363 (150-450) 10^3/uL Neut % (Auto) 51.4 (42.2-75.2) % Lymph % (Auto) 32.8 (20.5-50.1) % [place] % (Auto) 7.4 (2-8) % Eos % (Auto) 8.2 H (1.0-3.0) % Baso % (Auto) 0.2 (0.0-1.0) % Sodium 138 (135-145) mmol/L Potassium 3.7 (3.6-5.0) mmol/L Chloride 105 (101-111) mmol/L Carbon Dioxide 28.0 (21.0-31.0) mmol/L Anion Gap 8.7 BUN 6 L (7-18) mg/dL Creatinine 0.7 (0.6-1.3) mg/dL Est Cr Clr Drug Dosing 105.97 mL/min Estimated GFR (MDRD) > 60 BUN/Creatinine Ratio 8.57 Glucose 96 (74-105) mg/dL Calcium 9.0 (8.4-10.2) mg/dl Total Bilirubin 0.4 (0.2-1.0) mg/dL AST 20 (10-42) IU/L ALT 21 (10-60) IU/L Alkaline Phosphatase 133 H (42-121) IU/L Total Protein 7.3 (6.7-8.2) g/dl Albumin 3.8 (3.2-5.5) g/dl Globulin 3.5 Albumin/Globulin Ratio 1.09 Urine Color (YELLOW) Urine Appearance (CLEAR) Urine pH (5.0-9.0) Ur Specific [place] (1.005-1.030) Urine Protein (NEGATIVE) Urine Glucose (UA) (NEGATIVE) Urine Ketones (NEGATIVE) Urine Occult Blood (NEGATIVE) Urine Nitrite (NEGATIVE) Urine Bilirubin (NEGATIVE) Urine Urobilinogen (0.2-1.0) mg/dL Ur Leukocyte Esterase (NEGATIVE) Urine RBC /HPF Urine WBC (0-5/HPF) /HPF Ur Epithelial Cells /HPF Amorphous Sediment (0/HPF) /HPF Urine Bacteria (0-FEW/HPF) /HPF Urine Mucus /LPF Urine HCG, Qual Monoscreen Meds: Medications Discontinued Medications Generic Name Dose Route Start Last Admin Trade Name Freq PRN Reason Stop Dose Admin Sodium Chloride 1,000 mls @ 999 mls/hr 09/01/17 20:02 09/01/17 20:14 Normal Saline IV 09/01/17 21:02 999 mls/hr .BOLUS ONE Administration Ondansetron HCl 4 mg 09/01/17 20:02 09/01/17 20:18 Zofran IV 09/01/17 20:03 4 mg ONETIME ONE Administration Departure - Departure Time of Disposition: 21:20 Disposition: Home, Self-Care 01 Condition: Fair Clinical Impression: Viral upper respiratory infection - Discharge Information *PRESCRIPTION DRUG MONITORING PROGRAM REVIEWED*: Not Applicable *COPY OF PRESCRIPTION DRUG MONITORING REPORT IN PATIENT SHENA: Not Applicable Instructions: Viral Respiratory Infection, [id number] Referrals: Anh Ambriz [employer] PSYCHOLOGIST [Primary Care Provider] - Forms: ED Department Discharge Care Plan Goals: The patient was advised of the examination, lab and x-ray results. The patient was given a liter of IV fluids and IV Zofran while in the ED. The patient was encouraged to stick to a BRAT diet (bananas, rice, applesauce and toast) to reduce her nausea with small frequent sips of fluids. If the patient has any additional symptoms or concerns, the patient should follow-up with her primary care facility or return to the emergency department. - My Orders Last 24 Hours: My Active Orders 09/01/17 20:01 HCG QUALITATIVE,URINE [URCHEM] Stat UA W/MICROSCOPIC [URIN] Stat - Assessment/Plan Last 24 Hours: My Active Orders 09/01/17 20:01 HCG QUALITATIVE,URINE [URCHEM] Stat UA W/MICROSCOPIC [URIN] Stat
[2017-09-01 20:37] LABS: ANION GAP 8.7; CHLORIDE,CL 105 mmol/L (101-111); SODIUM,NA 138 mmol/L (135-145)
[2017-09-01 21:11] VITALS: BP 121/73
== END 2017-09-01 21:25 | disposition home or self-care (01) ==
LOC: DL.ED 18:34
DX: J06.9 Acute upper respiratory infection, unspecified (principal); F41.9 Anxiety disorder, unspecified; F32.9 Major depressive disorder, single episode, unspecified; Z88.1 Allergy status to other antibiotic agents; Z79.899 Other long term (current) drug therapy; Z87.01 Personal history of pneumonia (recurrent)
CPT/HCPCS: 36415; 71046; 80053; 81001; 81025; 85025; 86308; 96361; 96374; 99283; J2405; J7030

== ENCOUNTER 2018-06-16 20:33 | Emergency (ER) | payer BC, OTHER ==
--- NOTE | 2018-06-16 21:33 | EDM.PDOC ---
ED HPI GENERAL MEDICAL PROBLEM - General Chief Complaint: Syncope Stated Complaint: UPSET STOMACH,EAR INFECTION,FEVER [id number] Time Seen by Provider: 06/16/18 21:20 Source of Information: Reports: Patient History Limitations: Reports: No Limitations - History of Present Illness INITIAL COMMENTS - FREE TEXT/NARRATIVE: This 37 yo female patient reports to the ED due to abdominal pain and left ear pain. The patient reports she has been dealing with the abdominal pain for years , but when she starts to have abdominal pain she has increased anxiety leading to a panic attack. The patient reports she was started on Sertraline last week ( takes it at night), but has not taken it yet tonight. The patient reports when she was coming to [place] she had increased upper abdominal pain leading to an anxiety attack. The patient reports she was near passing out and could feel her heart beating very fast at that time. The patient report she has been having left ear pain intermittently for the past couple of days. 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 Upper Abdominal Pain Score (Numeric/FACES): 5 - Related Data Allergies Allergy/AdvReac Type Severity Reaction Status Date / Time clindamycin Allergy Hives Verified 06/16/18 21:10 Home Meds: Home Meds Sertraline HCl [Zoloft] 50 mg PO DAILY 12/16/15 [History] Cetirizine [ZyrTEC] 10 mg PO DAILY 03/17/17 [History] Cholecalciferol (Vitamin D3) [Vitamin D3] 1 tab PO BID 03/17/17 [History] Diclofenac Sodium [Voltaren] 75 mg PO BID PRN 01/05/18 [History] Omeprazole Magnesium [Prilosec Otc] 20 mg PO DAILY 06/16/18 [History] Past Medical History HEENT History: Reports: Impaired Vision, Other (See Below) Other HEENT History: wears glasses Cardiovascular History: Reports: None Respiratory History: Reports: Bronchitis, Recurrent, Pneumonia, Recurrent Gastrointestinal History: Reports: GERD, Helicobacter Pylori Other Gastrointestinal History: H-pilori Genitourinary History: Reports: UTI, Recurrent 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 METAL EXPEDITER History: Menorrhagia Musculoskeletal History: Reports: Other (See Below) Other Musculoskeletal History: plantar fasciitis Neurological History: Reports: None Psychiatric History: Reports: Anxiety, Depression Endocrine/Metabolic History: Reports: Vitamin D Deficiency Hematologic History: Reports: Iron Deficiency Immunologic History: Reports: None Oncologic (Cancer) History: Reports: None Dermatologic History: Reports: Other (See Below) Other Dermatologic History: MRSA - Infectious Disease History Infectious Disease History: Reports: Chicken Pox, MRSA - Past Surgical History Head Surgeries/Procedures: Reports: None Cardiovascular Surgical History: Reports: None Respiratory Surgical History: Reports: None GI Surgical History: Reports: EGD Female Surgical History: Reports: None Endocrine Surgical History: Reports: None Neurological Surgical History: Reports: None Musculoskeletal Surgical History: Reports: None Oncologic Surgical History: Reports: None Social & Family History - Family History Family Medical History: Noncontributory Endocrine/Metabolic: Reports: Diabetes, type II Oncologic: Reports: Breast, Lung - Caffeine Use Caffeine Use: Reports: Soda - Living Situation & Occupation Living situation: Reports: with Family ED ROS GENERAL - Review of Systems Review Of Systems: ROS reveals no pertinent complaints other than HPI. ED EXAM, GENERAL - Physical Exam Exam: See Below Exam Limited By: No Limitations General Appearance: Alert, WD/WN, Mild Distress Eye Exam: Bilateral Eye: EOMI, Normal Inspection, PERRL Ears: Normal External Exam, Normal Canal, Hearing Grossly Normal, Other (very slight erythema of left TM with no visible fluid or bulging of TM) Nose: Normal Inspection, Normal Mucosa, No Blood Throat/Mouth: Normal Inspection, Normal Lips, Normal Teeth, Normal Gums, Normal Oropharynx, Normal Voice, No Airway Compromise Head: Atraumatic, Normocephalic Neck: Normal Inspection, Supple, Non-Tender, Full Range of Motion Respiratory/Chest: No Respiratory Distress, Lungs Clear, Normal Breath Sounds, No Accessory Muscle Use, Chest Non-Tender Cardiovascular: Normal Peripheral Pulses, Regular Rate, Rhythm, No Edema, No Gallop, No JVD, No Murmur, No Rub GI/Abdominal: Normal Bowel Sounds, Soft, Non-Tender, No Organomegaly, No Distention, No Abnormal Bruit, No Mass (Female) Exam: Deferred Rectal (Female) Exam: Deferred Back Exam: Normal Inspection, Full Range of Motion, NT Extremities: Normal Inspection, Normal Range of Motion, Non-Tender, Normal Capillary Refill, No Pedal Edema Neurological: Alert, Oriented, CN II-XII Intact, Normal Cognition, Normal Gait, Normal Reflexes, No Motor/Sensory Deficits Psychiatric: Normal Affect, Normal Mood Skin Exam: Warm, Dry, Intact, Normal Color, No Rash Lymphatic: No Adenopathy Course - Vital Signs Last Recorded V/S: Last Vital Signs Temp 36.4 C 06/16/18 23:09 Pulse 82 06/16/18 23:09 Resp 16 06/16/18 23:09 BP 131/91 H 06/16/18 23:09 Pulse Ox 99 06/16/18 23:09 - Orders/Labs/Meds Orders: Active Orders 24 hr Category Date Time Status EKG Documentation Completion [RC] URGENT Care 06/16/18 21:13 Ordered CULTURE URINE [RM] Stat Lab 06/16/18 21:41 Received Labs: Laboratory Tests 06/16/18 06/16/18 06/16/18 Range/Units 21:20 21:20 21:41 WBC 11.4 H (5.0-10.0) 10^3/uL RBC 4.74 (4.2-5.4) 10^6/uL Hgb 13.4 (12.0-16.0) g/dL Hct 41.5 (37.0-47.0) % MCV 87.6 (80-100) fL MCH 28.3 (27.0-34.0) pg MCHC 32.3 L (33.0-35.0) g/dL Plt Count 398 (150-450) 10^3/uL Neut % (Auto) 60.0 (42.2-75.2) % Lymph % (Auto) 29.8 (20.5-50.1) % [place] % (Auto) 7.4 (2-8) % Eos % (Auto) 2.6 (1.0-3.0) % Baso % (Auto) 0.2 (0.0-1.0) % Sodium 137 (135-145) mmol/L Potassium 3.8 (3.6-5.0) mmol/L Chloride 104 (101-111) mmol/L Carbon Dioxide 24.0 (21.0-31.0) mmol/L Anion Gap 12.8 BUN 9 (7-18) mg/dL Creatinine 0.6 (0.6-1.3) mg/dL Est Cr Clr Drug Dosing 125.94 mL/min Estimated GFR (MDRD) > 60 BUN/Creatinine Ratio 15.00 Glucose 99 (74-105) mg/dL Calcium 8.8 (8.4-10.2) mg/dl Total Bilirubin 0.5 (0.2-1.0) mg/dL AST 24 (10-42) IU/L ALT 28 (10-60) IU/L Alkaline Phosphatase 121 (42-121) IU/L Troponin I 0.00 (0.00-0.08) ng/mL Total Protein 7.6 (6.7-8.2) g/dl Albumin 3.8 (3.2-5.5) g/dl Globulin 3.8 Albumin/Globulin Ratio 1.00 Urine Color Yellow (YELLOW) Urine Appearance Clear (CLEAR) Urine pH 7.5 (5.0-9.0) Ur Specific [place] 1.015 (1.005-1.030) Urine Protein Negative (NEGATIVE) Urine Glucose (UA) Negative (NEGATIVE) Urine Ketones Negative (NEGATIVE) Urine Occult Blood Negative (NEGATIVE) Urine Nitrite Negative (NEGATIVE) Urine Bilirubin Negative (NEGATIVE) Urine Urobilinogen 0.2 (0.2-1.0) mg/dL Ur Leukocyte Esterase Trace H (NEGATIVE) Urine RBC 0-5 /HPF Urine WBC 5-10 H (0-5/HPF) /HPF Ur Epithelial Cells Few /HPF Amorphous Sediment Occasional (0/HPF) /HPF Urine Bacteria Few (0-FEW/HPF) /HPF Urine Mucus Occasional /LPF Urine HCG, Qual Urine Opiates Screen (NEGATIVE) Ur Oxycodone Screen (NEGATIVE) Urine Methadone Screen (NEGATIVE) Ur Barbiturates Screen (NEGATIVE) U Tricyclic Antidepress (NEGATIVE) Ur Phencyclidine Scrn (NEGATIVE) Ur Amphetamine Screen (NEGATIVE) U Methamphetamines Scrn (NEGATIVE) Urine MDMA Screen (NEGATIVE) U Benzodiazepines Scrn (NEGATIVE) Urine Cocaine Screen (NEGATIVE) U Marijuana (THC) Screen (NEGATIVE) 06/16/18 06/16/18 Range/Units 21:41 21:41 WBC (5.0-10.0) 10^3/uL RBC (4.2-5.4) 10^6/uL Hgb (12.0-16.0) g/dL Hct (37.0-47.0) % MCV (80-100) fL MCH (27.0-34.0) pg MCHC (33.0-35.0) g/dL Plt Count (150-450) 10^3/uL Neut % (Auto) (42.2-75.2) % Lymph % (Auto) (20.5-50.1) % [place] % (Auto) (2-8) % Eos % (Auto) (1.0-3.0) % Baso % (Auto) (0.0-1.0) % Sodium (135-145) mmol/L Potassium (3.6-5.0) mmol/L Chloride (101-111) mmol/L Carbon Dioxide (21.0-31.0) mmol/L Anion Gap BUN (7-18) mg/dL Creatinine (0.6-1.3) mg/dL Est Cr Clr Drug Dosing mL/min Estimated GFR (MDRD) BUN/Creatinine Ratio Glucose (74-105) mg/dL Calcium (8.4-10.2) mg/dl Total Bilirubin (0.2-1.0) mg/dL AST (10-42) IU/L ALT (10-60) IU/L Alkaline Phosphatase (42-121) IU/L Troponin I (0.00-0.08) ng/mL Total Protein (6.7-8.2) g/dl Albumin (3.2-5.5) g/dl Globulin Albumin/Globulin Ratio Urine Color (YELLOW) Urine Appearance (CLEAR) Urine pH (5.0-9.0) Ur Specific [place] (1.005-1.030) Urine Protein (NEGATIVE) Urine Glucose (UA) (NEGATIVE) Urine Ketones (NEGATIVE) Urine Occult Blood (NEGATIVE) Urine Nitrite (NEGATIVE) Urine Bilirubin (NEGATIVE) Urine Urobilinogen (0.2-1.0) mg/dL Ur Leukocyte Esterase (NEGATIVE) Urine RBC /HPF Urine WBC (0-5/HPF) /HPF Ur Epithelial Cells /HPF Amorphous Sediment (0/HPF) /HPF Urine Bacteria (0-FEW/HPF) /HPF Urine Mucus /LPF Urine HCG, Qual Negative Urine Opiates Screen Negative (NEGATIVE) Ur Oxycodone Screen Negative (NEGATIVE) Urine Methadone Screen Negative (NEGATIVE) Ur Barbiturates Screen Negative (NEGATIVE) U Tricyclic Antidepress Negative (NEGATIVE) Ur Phencyclidine Scrn Negative (NEGATIVE) Ur Amphetamine Screen Negative (NEGATIVE) U Methamphetamines Scrn Negative (NEGATIVE) Urine MDMA Screen Negative (NEGATIVE) U Benzodiazepines Scrn Negative (NEGATIVE) Urine Cocaine Screen Negative (NEGATIVE) U Marijuana (THC) Screen Negative (NEGATIVE) Meds: Medications Discontinued Medications Generic Name Dose Route Start Last Admin Trade Name Falguni PRN Reason Stop Dose Admin Al Hydroxide/Mg Hydroxide 30 ml 06/16/18 23:26 06/16/18 23:28 Gi Cocktail PO 06/16/18 23:27 30 ml ONETIME ONE Administration Lorazepam 0.5 mg 06/16/18 22:05 06/16/18 22:10 Ativan PO 06/16/18 22:06 0.5 mg ONETIME ONE Administration - Re-Assessments/Exams Free Text/Narrative Re-Assessment/Exam: 06/16/18 22:06 The patient was advised of the lab, EKG and examination results. The patient was given an oral dose of Ativan for anxiety. Departure - Departure Time of Disposition: 23:53 Disposition: Home, Self-Care 01 Condition: Fair Clinical Impression: Anxiety GERD (gastroesophageal reflux disease) Qualifiers: Esophagitis presence: with esophagitis Qualified Code(s): K21.0 - Gastro- esophageal reflux disease with esophagitis - Discharge Information *PRESCRIPTION DRUG MONITORING PROGRAM REVIEWED*: Not Applicable *COPY OF PRESCRIPTION DRUG MONITORING REPORT IN PATIENT SHENA: Not Applicable Instructions: Panic Attack, [id number], Gastroesophageal Reflux Disease, Adult, [id number] Forms: ED Department Discharge Care Plan Goals: The patient was advised of the examination, lab, and EKG results during the visit. The patient was given an oral dose of Ativan and an oral GI Cocktail with symptom relief. The patient was encouraged to follow-up with her primary care facility for continued evaluation and further management. If the patient has any additional symptoms or concerns, the patient should either return to the emergency department or visit her primary care facility. - My Orders Last 24 Hours: My Active Orders 06/16/18 21:13 EKG Documentation Completion [RC] URGENT 06/16/18 21:41 CULTURE URINE [RM] Stat - Assessment/Plan Last 24 Hours: My Active Orders 06/16/18 21:13 EKG Documentation Completion [RC] URGENT 06/16/18 21:41 CULTURE URINE [RM] Stat
[2018-06-16 21:48] LABS: ANION GAP 12.8; CHLORIDE,CL 104 mmol/L (101-111); SODIUM,NA 137 mmol/L (135-145)
[2018-06-16] MEDS ORDERED: LORazepam 0.5 MG Tab PO ONE (22:05)
[2018-06-16 23:10] VITALS: BP 131/91
[2018-06-16] MEDS ORDERED: GI Cocktail Oral Solution 30 ML PO ONE (23:26)
== END 2018-06-17 00:01 | disposition home or self-care (01) ==
LOC: DL.ED 20:33
DX: K21.0 Gastro-esophageal reflux disease with esophagitis (principal); F41.9 Anxiety disorder, unspecified; F32.9 Major depressive disorder, single episode, unspecified; Z88.1 Allergy status to other antibiotic agents; Z79.899 Other long term (current) drug therapy
CPT/HCPCS: 36415; 80053; 80305-QW; 81001; 81025; 84484; 85025; 87086; 93005; 99284-25; A9270-GY

== ENCOUNTER 2018-07-08 19:40 | Emergency (ER) | payer BC ==
[2018-07-08] MEDS ORDERED: GI Cocktail Oral Solution 30 ML PO ONE (19:57)
--- NOTE | 2018-07-08 20:03 | EDM.PDOCBH ---
ED HPI GENERAL MEDICAL PROBLEM - General Chief Complaint: Behavioral/Psych Stated Complaint: PANIC ATTACK, FEELS LIKE SHE CAN'T BREATHE [id number] Time Seen by Provider: 07/08/18 19:58 Source of Information: Reports: Patient History Limitations: Reports: No Limitations - History of Present Illness INITIAL COMMENTS - FREE TEXT/NARRATIVE: c/o recurrent h/o Sx. last time got GI cocktail and got better. at first thought was panic attack and took klonaz but '0' - Related Data Allergies Allergy/AdvReac Type Severity Reaction Status Date / Time clindamycin Allergy Hives Verified 06/16/18 21:10 Home Meds: Home Meds Sertraline HCl [Zoloft] 50 mg PO DAILY 12/16/15 [History] Cetirizine [ZyrTEC] 10 mg PO DAILY 03/17/17 [History] Cholecalciferol (Vitamin D3) [Vitamin D3] 1 tab PO BID 03/17/17 [History] Diclofenac Sodium [Voltaren] 75 mg PO BID PRN 01/05/18 [History] Omeprazole Magnesium [Prilosec Otc] 20 mg PO DAILY 06/16/18 [History] ClonazePAM [KlonoPIN] 0.5 mg PO ASDIRECTED PRN 07/08/18 [History] Pantoprazole Sodium 40 mg PO DAILY 07/08/18 [History] Past Medical History HEENT History: Reports: Impaired Vision, Other (See Below) Other HEENT History: wears glasses Cardiovascular History: Reports: None Respiratory History: Reports: Bronchitis, Recurrent, Pneumonia, Recurrent Gastrointestinal History: Reports: GERD, Helicobacter Pylori Other Gastrointestinal History: H-pilori Genitourinary History: Reports: UTI, Recurrent 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 History: Menorrhagia Musculoskeletal History: Reports: Other (See Below) Other Musculoskeletal History: plantar fasciitis Neurological History: Reports: None Psychiatric History: Reports: Anxiety, Depression Endocrine/Metabolic History: Reports: Vitamin D Deficiency Hematologic History: Reports: Iron Deficiency Immunologic History: Reports: None Oncologic (Cancer) History: Reports: None Dermatologic History: Reports: Other (See Below) Other Dermatologic History: MRSA - Infectious Disease History Infectious Disease History: Reports: Chicken Pox, MRSA - Past Surgical History Head Surgeries/Procedures: Reports: None Cardiovascular Surgical History: Reports: None Respiratory Surgical History: Reports: None GI Surgical History: Reports: EGD Female Surgical History: Reports: None Endocrine Surgical History: Reports: None Neurological Surgical History: Reports: None Musculoskeletal Surgical History: Reports: None Oncologic Surgical History: Reports: None Social & Family History - Family History Family Medical History: Noncontributory Endocrine/Metabolic: Reports: Diabetes, type II Oncologic: Reports: Breast, Lung - Caffeine Use Caffeine Use: Reports: Soda - Living Situation & Occupation Living situation: Reports: with Family ED ROS GENERAL - Review of Systems Review Of Systems: ROS reveals no pertinent complaints other than HPI. ED EXAM, BEHAVIORAL HEALTH - Physical Exam Exam: See Below Exam Limited By: No Limitations General Appearance: Alert, WD/WN, Anxious Eye Exam: Bilateral Eye: PERRL (pupils ess ER @ 4mm) Ears: Hearing Grossly Normal Throat/Mouth: Normal Voice, No Airway Compromise Head: Atraumatic Neck: Non-Tender, Full Range of Motion Respiratory/Chest: No Respiratory Distress Cardiovascular: Regular Rate, Rhythm GI/Abdominal: Soft, Non-Tender Neurological: Alert, Normal Cognition, Normal Gait, Oriented x 3, Other (anxious ) Psychiatric: Alert, Normal Cognition, Oriented, Other (anxious) Skin Exam: Warm, Dry, Normal color COURSE, BEHAVIORAL HEALTH COMP - Course Vital Signs: Last Vital Signs Temp 36.7 C 07/08/18 20:17 Pulse 88 07/08/18 21:06 Resp 18 07/08/18 21:06 BP 121/91 H 07/08/18 21:06 Pulse Ox 99 07/08/18 21:06 Orders, Labs, Meds: Medications Discontinued Medications Generic Name Dose Route Start Last Admin Trade Name Jbq PRN Reason Stop Dose Admin Al Hydroxide/Mg Hydroxide 30 ml 07/08/18 19:57 07/08/18 20:05 Gi Cocktail PO 07/08/18 19:58 30 ml ONETIME ONE Administration Lorazepam 2 mg 07/08/18 20:23 07/08/18 20:35 Ativan IM 07/08/18 20:24 2 mg ONETIME ONE Administration Re-Assessment/Re-Exam: re-exam; s/p GI cocktail = '0' states till feels anxious but stomach ok. Departure - Departure Time of Disposition: 21:00 Disposition: Home, Self-Care 01 Condition: Good Clinical Impression: Reaction, situational Qualifiers: Adjustment disorder type: with anxious mood Qualified Code(s): F43.22 - Adjustment disorder with anxiety - Discharge Information Referrals: PCP,None [Primary Care Provider] - Forms: ED Department Discharge Additional Instructions: 1) rest 2) follow up at clinic rx given; simeticoine 80mg prn x 30
[2018-07-08] MEDS ORDERED: LORazepam 2 MG/ML Syringe IM ONE (20:23)
[2018-07-08 21:06] VITALS: BP 121/91
== END 2018-07-08 21:10 | disposition home or self-care (01) ==
LOC: DL.ED 19:40
DX: F43.22 Adjustment disorder with anxiety (principal); K21.9 Gastro-esophageal reflux disease without esophagitis; F41.9 Anxiety disorder, unspecified; F32.9 Major depressive disorder, single episode, unspecified; Z88.1 Allergy status to other antibiotic agents; Z79.899 Other long term (current) drug therapy
CPT/HCPCS: 96372; 99283; A9270; J2060

== ENCOUNTER 2018-11-02 06:10 | Day surgery (SDC) | payer BC ==
[~2018-11-02 06:10] MED LIST changes: +Dextrose 5%-0.45% NaCl 1,000 ML IV SCH; -Lactated Ringers 1,000 ML IV SCH; -ceFAZolin 1 GM in Premix Bag 1 BAG IV ONE
[2018-11-02] MEDS ORDERED: Midazolam 1 MG/ML 2 ML SDV IV ONE ×3 (06:11→07:09)
[2018-11-02] MEDS ORDERED: fentaNYL 100 MCG/2 ML SDV IV ONE ×3 (06:11→07:07)
[2018-11-02] MEDS ORDERED: Midazolam 1 MG/ML 2 ML SDV ONE (06:15)
[2018-11-02] MEDS ORDERED: fentaNYL 100 MCG/2 ML SDV ONE (06:15)
[2018-11-02 11:32] VITALS: BP 122/70; PULSE 52
--- NOTE | 2018-11-02 13:27 | OR ---
DATE: 11/02/2018 PROCEDURES: Esophagogastroduodenoscopy and multiple pinch biopsies. INSTRUMENT USED: [id number] Olympus video panendoscope. PREMEDICATIONS: No oral or topical anesthesia used. Fentanyl 100 mcg intravenous, Versed 2 mg intravenous. The procedure was done under pulse oximetry, BP recording, and satellite project site monitor. INDICATION: The patient with persistent abdominal pain, dyspepsia, and bloating unexplained and not responsive to medical measures. Esophagogastroduodenoscopy is performed for detection of any active erosive lesions, Espinoza esophagus and/or malignancy also under consideration, H. pylori status to be determined, small bowel biopsies to be obtained for celiac disease, endoscopic hemostasis therapy if needed. PROCEDURE IN DETAIL: The scope was passed with ease. Adequate visualization of the esophagus was made from proximal to distal areas. No upper esophageal lesions identified. No distal esophageal stricture. No uphill or downhill esophageal varices. No Sherrill-Ly tear. No evidence of erosive esophagitis by Clare criteria. No esophageal polyp or tumor mass identified. Z-line was seen at around 40 cm distal to the oral verge, configuration consistent with grade 1 by ZAP classification. No proximal gastric varices noted. Gastric fundus examination by retroflexion showed no polypoid lesions. No gastric ulcer, malignant mass, or vascular ectasia identified. Some patchy erythema was noted in the antrum. Duodenal bulb showed no ulcer. Visualized second part of the duodenum was unremarkable. Multiple pinch biopsies, 4 in number were taken from the second part of the duodenum and tissues were also obtained from the duodenal bulb at 9 and 12 o'clock positions and sent for any histopathologic evidence of celiac disease. Multiple pinch biopsies were also taken from the gastric antrum and proximal body and sent for PyloriTek test for H. pylori and histopathology. No bleeding was noted from any of the visualized areas at the completion of examination. Photographs were taken of the duodenal bulb, gastric antrum, fundus, and distal esophagus. IMPRESSION: Normal study. The patient tolerated the procedure well. [facility] /[id number]
--- NOTE | 2018-11-02 13:55 | LETTER ---
11/02/2018 RE: JAZMIN SIMENTAL : 1980 Kaela Pena MD [facility] [address] [place] [address] Pena: Ms. Jazmin Simental had esophagogastroduodenoscopy done this morning and she tolerated the procedure well. I herewith send a copy of the endoscopy note and photographs for your review. Thank you. Sincerely, [facility] /[id number]
== END 2018-11-02 09:20 | disposition home or self-care (01) ==
LOC: DL.ENDO 06:10
PROVIDERS: ATTEND Internal Medicine Gastroenterology
DX: R10.9 Unspecified abdominal pain (principal); K30 Functional dyspepsia; R14.0 Abdominal distension (gaseous); Z88.1 Allergy status to other antibiotic agents
CPT/HCPCS: 43239; 81025; 87077; J7042; J2250; J3010

== ENCOUNTER 2018-11-04 06:19 | Day surgery (SDC) | payer BC, OTHER ==
[~2018-11-04 06:19] MED LIST changes: -Dextrose 5%-0.45% NaCl 1,000 ML IV SCH; +Midazolam 1 MG/ML 2 ML SDV ONE; +fentaNYL 100 MCG/2 ML SDV ONE
[2018-11-04] MEDS ORDERED: Midazolam 1 MG/ML 2 ML SDV IV ONE (06:20)
[2018-11-04] MEDS ORDERED: fentaNYL 100 MCG/2 ML SDV IV ONE (06:20)
[2018-11-04] MEDS: Dextrose 5%-0.45% NaCl 1,000 ML IV SCH (06:51)
[2018-11-04] MEDS: fentaNYL 100 MCG/2 ML SDV IV ONE ×5 (07:12→07:23)
[2018-11-04] MEDS: Midazolam 1 MG/ML 2 ML SDV IV ONE ×6 (07:13→07:19)
[2018-11-04 10:19] VITALS: BP 117/78; PULSE 69
--- NOTE | 2018-11-04 12:43 | OR ---
DATE: 11/04/2018 PROCEDURE: Total colonoscopy. INSTRUMENT USED: [id number] Olympus video colonoscope. PREMEDICATIONS: Fentanyl 200 mcg intravenous, Versed 4 mg intravenous, nasal O2 cannula. The procedure was done under pulse oximetry, BP recording, and test analyst. INDICATION: The patient with rectal bleeding. Colonoscopic examination is done for detection of any polypoid lesions and removal, endoscopic hemostasis therapy if needed. DESCRIPTION OF PROCEDURE: Initial rectal exam was unremarkable. Rigid anoscopy was normal. The colonoscope was passed with relative ease up to the ileocecal area. Photographs were taken of the normal-appearing cecum, identified by landmarks of appendiceal orifice and double-bulged ileocecal folds. The colon was found to be tortuous and redundant. No bleeding was noted from any of the visualized areas at the commencement of the examination. Bowel preparation was found to be adequate, Mendota scale 2 in all the regions. No stricture. No vascular ectasia. No large isolated ulcerations seen. No evidence of diffuse inflammatory bowel disease in the form of friability, contact bleeding, or ulcerations. No polyp or tumor mass were identified. Probing the proximal sides of folds and flexures using adequate distention and clearing up the stool material, withdrawal of the scope was made. Cecum to rectum time over 6 minutes. No bleeding was noted from any of the visualized areas at the completion of examination. IMPRESSION: Normal study. The patient tolerated the procedure well. [facility] /[id number]
--- NOTE | 2018-11-04 13:43 | LETTER ---
11/04/2018 Kaela Pena MD [facility] [address] [place] [address] RE: JAZMIN SIMENTAL : [address] Pena: Ms. Jazmin Simental had colonoscopic examination done this morning and she tolerated the procedure well. I herewith send a copy of the endoscopy note and photographs for your review. Thank you. Sincerely, [facility] /[id number]
== END 2018-11-04 09:35 | disposition home or self-care (01) ==
LOC: DL.ENDO 06:19
PROVIDERS: ATTEND Internal Medicine Gastroenterology
DX: K62.5 Hemorrhage of anus and rectum (principal); K30 Functional dyspepsia; R14.0 Abdominal distension (gaseous); Q43.8 Other specified congenital malformations of intestine; F41.1 Generalized anxiety disorder; F32.9 Major depressive disorder, single episode, unspecified; F41.0 Panic disorder [episodic paroxysmal anxiety]; Z88.1 Allergy status to other antibiotic agents; Z79.899 Other long term (current) drug therapy
CPT/HCPCS: 45378; J2250; J3010; J7042; G0121

== ENCOUNTER 2018-12-13 18:51 | Emergency (ER) | payer BC ==
[2018-12-13 19:39] VITALS: BP 150/104; PULSE 95
[2018-12-13] MEDS ORDERED: GI Cocktail Oral Solution 30 ML PO ONE (20:24)
--- NOTE | 2018-12-13 20:40 | EDM.PDOCBH ---
ED HPI GENERAL MEDICAL PROBLEM - General Chief Complaint: Behavioral/Psych Stated Complaint: STOMACH AND ANEIXTY Time Seen by Provider: 12/13/18 19:50 Source of Information: Reports: Patient History Limitations: Reports: No Limitations - History of Present Illness INITIAL COMMENTS - FREE TEXT/NARRATIVE: C/O stomach burning, hx same Has been on clonopin but did not get filled today after seeing MH provider. Ate chicken sandwich for supper and felt bloated and stomach burning. Recent colonoscopy and EGD with negative findings. No vomiting no fever. - Related Data Allergies Allergy/AdvReac Type Severity Reaction Status Date / Time clindamycin Allergy Hives Verified 12/13/18 19:31 lincomycin Allergy Hives Verified 12/13/18 19:31 Home Meds: Home Meds Sertraline HCl [Zoloft] 50 mg PO DAILY 12/16/15 [History] Cholecalciferol (Vitamin D3) [Vitamin D3] 1 tab PO BID 03/17/17 [History] ClonazePAM [KlonoPIN] 0.5 mg PO ASDIRECTED PRN 07/08/18 [History] Ibuprofen 200 mg PO ASDIRECTED PRN 11/01/18 [History] Vit #49/Iron Fum/FA [Mini Tablet] 1 tab PO DAILY 11/01/18 [ History] Propranolol HCl [Propranolol] 10 mg PO DAILY 11/01/18 [History] rOPINIRole [Requip] 0.5 mg PO ASDIRECTED 11/01/18 [History] Baclofen 10 mg PO .PRN PRN 11/04/18 [History] Omeprazole 20 mg PO BIDAC 12/13/18 [History] Past Medical History HEENT History: Reports: Impaired Vision, Other (See Below) Other HEENT History: wears glasses Cardiovascular History: Reports: None Respiratory History: Reports: Bronchitis, Recurrent, Pneumonia, Recurrent Gastrointestinal History: Reports: GERD, Helicobacter Pylori Other Gastrointestinal History: H-pilori Genitourinary History: Reports: UTI, Recurrent 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 CUSTOMER MARKETING MANAGER History: Menorrhagia Musculoskeletal History: Reports: Other (See Below) Other Musculoskeletal History: plantar fasciitis Neurological History: Reports: None Psychiatric History: Reports: Anxiety, Depression Endocrine/Metabolic History: Reports: Vitamin D Deficiency Hematologic History: Reports: Anemia, Iron Deficiency Immunologic History: Reports: None Oncologic (Cancer) History: Reports: None Dermatologic History: Reports: Other (See Below) Other Dermatologic History: MRSA - Infectious Disease History Infectious Disease History: Reports: Chicken Pox, MRSA - Past Surgical History Head Surgeries/Procedures: Reports: None Cardiovascular Surgical History: Reports: None Respiratory Surgical History: Reports: None GI Surgical History: Reports: Colonoscopy, EGD Female Surgical History: Reports: None Endocrine Surgical History: Reports: None Neurological Surgical History: Reports: None Musculoskeletal Surgical History: Reports: None Oncologic Surgical History: Reports: None Social & Family History - Family History Family Medical History: Noncontributory Endocrine/Metabolic: Reports: Diabetes, type II Oncologic: Reports: Breast, Lung - Tobacco Use Smoking Status *Q: Never Smoker Second Hand Smoke Exposure: No - Caffeine Use Caffeine Use: Reports: None - Recreational Drug Use Recreational Drug Use: No - Living Situation & Occupation Living situation: Reports: with Family ED ROS GENERAL - Review of Systems Review Of Systems: ROS reveals no pertinent complaints other than HPI. ED EXAM, BEHAVIORAL HEALTH - Physical Exam Exam: See Below Exam Limited By: No Limitations General Appearance: Alert, No Apparent Distress Eye Exam: Bilateral Eye: EOMI Ears: Normal External Exam Nose: Normal Inspection Throat/Mouth: Normal Inspection, Normal Lips, Normal Voice Head: Atraumatic, Normocephalic Neck: Normal Inspection, Full Range of Motion Respiratory/Chest: No Respiratory Distress, Lungs Clear, Normal Breath Sounds Cardiovascular: Normal Peripheral Pulses, Regular Rate, Rhythm GI/Abdominal: Normal Bowel Sounds, Soft, Non-Tender Back Exam: Normal Inspection, Full Range of Motion Extremities: Normal Inspection, Normal Range of Motion Neurological: Alert, Normal Mood/Affect Psychiatric: Alert, Normal Cognition Skin Exam: Warm, Dry, Intact, Normal color COURSE, BEHAVIORAL HEALTH COMP - Course Vital Signs: Last Vital Signs Temp 97.7 F 12/13/18 19:32 Pulse 95 12/13/18 19:32 Resp 16 12/13/18 19:32 BP 150/104 H 12/13/18 19:32 Pulse Ox 100 12/13/18 19:32 Orders, Labs, Meds: Medications Discontinued Medications Generic Name Dose Route Start Last Admin Trade Name Freq PRN Reason Stop Dose Admin Al Hydroxide/Mg Hydroxide 30 ml 12/13/18 20:24 12/13/18 20:31 Gi Cocktail PO 12/13/18 20:25 30 ml ONETIME ONE Administration Departure - Departure Time of Disposition: 20:37 Disposition: Home, Self-Care 01 Condition: Good Clinical Impression: Anxiety - Discharge Information *PRESCRIPTION DRUG MONITORING PROGRAM REVIEWED*: Yes *COPY OF PRESCRIPTION DRUG MONITORING REPORT IN PATIENT SHENA: No Instructions: Panic Attack, [id number] Forms: ED Department Discharge Additional Instructions: Light bland diet, fill prescription in am follow up with mental health provider as scheduled
== END 2018-12-13 20:44 | disposition home or self-care (01) ==
LOC: DL.ED 18:51
DX: F41.9 Anxiety disorder, unspecified (principal); K21.9 Gastro-esophageal reflux disease without esophagitis; F32.9 Major depressive disorder, single episode, unspecified; Z88.1 Allergy status to other antibiotic agents; Z79.899 Other long term (current) drug therapy
CPT/HCPCS: 99283; A9270

== ENCOUNTER 2020-06-17 13:43 | Emergency (ER) | payer BC, OTHER ==
--- NOTE | 2020-06-17 14:00 | EDM.PDOC ---
ED HPI GENERAL MEDICAL PROBLEM - General Chief Complaint: ENT Problem Stated Complaint: SORE THROAT FOR 1 WEEK Time Seen by Provider: 06/17/20 13:56 Source of Information: Reports: Patient, Old Records, RN, RN Notes Reviewed History Limitations: Reports: No Limitations - History of Present Illness INITIAL COMMENTS - FREE TEXT/NARRATIVE: Pt presents to ER with c/o sore throat x1 week. Admits to runny nose with mild- moderate congestion. Denies fever, chills, or cough. Pt states she is 31 weeks , but has no concerned related to this ER visit. She was seen in clinic last week and had a negative strep test. Onset: Gradual Duration: Week(s): (1), Constant Quality: Reports: Ache, Burning Severity: Moderate Improves with: Reports: None Worsens with: Reports: None Associated Symptoms: Reports: No Other Symptoms Throat Pain Score (Numeric/FACES): 5 - Related Data Allergies Allergy/AdvReac Type Severity Reaction Status Date / Time clindamycin Allergy Hives Verified 06/17/20 13:51 lincomycin Allergy Hives Verified 06/17/20 13:51 Home Meds: Home Meds Sertraline HCl [Zoloft] 50 mg PO DAILY 12/16/15 [History] Cholecalciferol (Vitamin D3) [Vitamin D3] 1 tab PO BID 03/17/17 [History] Vit #49/Iron Fum/FA [Mini Tablet] 1 tab PO DAILY 11/01/18 [History] Ascorbic Acid [Vitamin C] 500 mg PO DAILY 06/17/20 [History] Ferrous Sulfate 325 mg PO DAILY 06/17/20 [History] Ranitidine [Zantac] 150 mg PO BID 06/17/20 [History] Past Medical History HEENT History: Reports: Impaired Vision, Other (See Below) Other HEENT History: wears glasses Cardiovascular History: Reports: None Respiratory History: Reports: Bronchitis, Recurrent, Pneumonia, Recurrent Gastrointestinal History: Reports: GERD, Helicobacter Pylori Other Gastrointestinal History: H-pilori Genitourinary History: Reports: UTI, Recurrent DIRECTOR OF 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: Other DIRECTOR OF MATERIALS History: Menorrhagia Musculoskeletal History: Reports: Other (See Below) Other Musculoskeletal History: plantar fasciitis Neurological History: Reports: None Psychiatric History: Reports: Anxiety, Depression Endocrine/Metabolic History: Reports: Vitamin D Deficiency Hematologic History: Reports: Anemia, Iron Deficiency Immunologic History: Reports: None Oncologic (Cancer) History: Reports: None Dermatologic History: Reports: Other (See Below) Other Dermatologic History: MRSA - Infectious Disease History Infectious Disease History: Reports: Chicken Pox, MRSA - Past Surgical History Head Surgeries/Procedures: Reports: None Other HEENT Surgeries/Procedures: DX; Strepthroat 01/15/15 Cardiovascular Surgical History: Reports: None Respiratory Surgical History: Reports: None GI Surgical History: Reports: Colonoscopy, EGD Female Surgical History: Reports: None Endocrine Surgical History: Reports: None Neurological Surgical History: Reports: None Musculoskeletal Surgical History: Reports: None Oncologic Surgical History: Reports: None Social & Family History - Family History Family Medical History: No Pertinent Family History Endocrine/Metabolic: Reports: Diabetes, type II Oncologic: Reports: Breast, Lung - Caffeine Use Caffeine Use: Reports: None - Living Situation & Occupation Living situation: Reports: with Family ED ROS ENT - Review of Systems Review Of Systems: Comprehensive ROS is negative, except as noted in HPI. ED EXAM, ENT - Physical Exam Exam: See Below Exam Limited By: No Limitations General Appearance: Alert, WD/WN, No Apparent Distress Ears: Normal External Exam, Normal Canal, Hearing Grossly Normal, Normal TMs Nose: No Blood, Clear Rhinorrhea Mouth/Throat: Normal Gums, Normal Lips, Normal Teeth, Pharyngeal Erythema (Streaks of redness with copius postnasal drip). No: Peritonsillar Mass, Throat Swelling, Tongue Swelling, Tonsillar Erythema, Tonsillar Exudates, Tonsillar Swelling, Trismus, Uvular Deviation, Uvular Edema Head: Atraumatic, Normocephalic Neck: Normal Inspection, Supple, Non-Tender, Full Range of Motion. No: Lymphadenopathy (L), Lymphadenopathy (R) Respiratory/Chest: No Respiratory Distress, Lungs Clear, Normal Breath Sounds, No Accessory Muscle Use, Chest Non-Tender Cardiovascular: Regular Rate, Rhythm GI/Abdominal: Normal Bowel Sounds, Soft, Non-Tender, Other (Gravid consistent with 31wk gest. with palpable activity.) Extremities: Normal Inspection, No Pedal Edema Neurological: Alert, Oriented, No Motor/Sensory Deficits Psychiatric: Normal Affect, Normal Mood Skin: Warm, Dry, Intact, Normal Color, No Rash Course - Vital Signs Last Recorded V/S: Last Vital Signs Temp 96.7 F L 06/17/20 14:01 Pulse 97 06/17/20 14:01 Resp 18 06/17/20 14:01 BP 135/80 06/17/20 14:01 Pulse Ox 99 06/17/20 14:01 - Orders/Labs/Meds Orders: Active Orders 24 hr Category Date Time Status STREP SCRN A RAPID W CULT CONF [RM] Stat Lab 06/17/20 14:06 Received Departure - Departure Time of Disposition: 14:40 Disposition: Home, Self-Care 01 Condition: Good Clinical Impression: Allergic rhinitis with postnasal drip, Sore throat - Discharge Information *PRESCRIPTION DRUG MONITORING PROGRAM REVIEWED*: Not Applicable *COPY OF PRESCRIPTION DRUG MONITORING REPORT IN PATIENT SHENA: Not Applicable Instructions: Postnasal Drip, Sore Throat, [id number] Forms: ED Department Discharge Additional Instructions: Rx: Loratadine 10mg Frequent saltwater gargles until sore throat resolves. Follow up with your OB doctor this week if not improving. Sepsis Event Note (ED) - Focused Exam Vital Signs: Vital Signs Temp Pulse Resp BP Pulse Ox 06/17/20 14:01 96.7 F L 97 18 135/80 99 - My Orders Last 24 Hours: My Active Orders 06/17/20 14:06 STREP SCRN A RAPID W CULT CONF [RM] Stat - Assessment/Plan Last 24 Hours: My Active Orders 06/17/20 14:06 STREP SCRN A RAPID W CULT CONF [RM] Stat
[2020-06-17 14:02] VITALS: BP 135/80; PULSE 97
== END 2020-06-17 14:38 | disposition home or self-care (01) ==
LOC: DL.ED 13:43
DX: J30.9 Allergic rhinitis, unspecified (principal); J02.9 Acute pharyngitis, unspecified; R09.82 Postnasal drip; K21.9 Gastro-esophageal reflux disease without esophagitis; Z88.1 Allergy status to other antibiotic agents; Z79.899 Other long term (current) drug therapy
CPT/HCPCS: 87081; 87430; 99283

== ENCOUNTER 2020-06-23 02:40 | Emergency (ER) | payer BC ==
--- NOTE | 2020-06-23 03:39 | EDM.PDOC ---
ED HPI GENERAL MEDICAL PROBLEM - General Chief Complaint: ENT Problem Stated Complaint: HOT FLASHES, TROUBLE BREATHING,CONGESTION Time Seen by Provider: 06/23/20 03:20 Source of Information: Reports: Patient, RN History Limitations: Reports: No Limitations - History of Present Illness INITIAL COMMENTS - FREE TEXT/NARRATIVE: 39-year-old female who is 31 weeks presents to the ER with her significant other with complaints of nasal congestion and sore throat for 12 days. Patient reports waking up from bed early this morning with nasal congestion and dry mouth. She states that she was seen in the ER 5 days ago and was given loratadine but currently is on Zyrtec prescribed to her by her MANAGEMENT DEPARTMENT CHAIR. She states taking the zyrtec which has not really helped with her congestion. Strep and influenza were negative during her last visit 5 days ago. She denies any fevers, shortness of breath, chills, palpitation or abdominal problems at this time. Throat Pain Score (Numeric/FACES): 7 - Related Data Allergies Allergy/AdvReac Type Severity Reaction Status Date / Time clindamycin Allergy Hives Verified 06/17/20 13:51 lincomycin Allergy Hives Verified 06/17/20 13:51 Home Meds: Home Meds Sertraline HCl [Zoloft] 50 mg PO DAILY 12/16/15 [History] Cholecalciferol (Vitamin D3) [Vitamin D3] 1 tab PO BID 03/17/17 [History] Vit #49/Iron Fum/FA [Mini Tablet] 1 tab PO DAILY 11/01/18 [History] Ascorbic Acid [Vitamin C] 500 mg PO DAILY 06/17/20 [History] Ferrous Sulfate 325 mg PO DAILY 06/17/20 [History] Ranitidine [Zantac] 150 mg PO BID 06/17/20 [History] Past Medical History HEENT History: Reports: Impaired Vision, Other (See Below) Other HEENT History: wears glasses, hx strep throat Cardiovascular History: Reports: None Respiratory History: Reports: Bronchitis, Recurrent, Pneumonia, Recurrent Gastrointestinal History: Reports: GERD, Helicobacter Pylori Other Gastrointestinal History: H-pilori Genitourinary History: Reports: UTI, Recurrent 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: Other MANAGEMENT DEPARTMENT CHAIR History: Menorrhagia Musculoskeletal History: Reports: Other (See Below) Other Musculoskeletal History: plantar fasciitis, hx bilat wrist fxs Neurological History: Reports: None Psychiatric History: Reports: Anxiety, Depression Endocrine/Metabolic History: Reports: Diabetes, Gestational, Vitamin D Deficiency Hematologic History: Reports: Anemia, Iron Deficiency Immunologic History: Reports: None Oncologic (Cancer) History: Reports: None Dermatologic History: Reports: Other (See Below) Other Dermatologic History: MRSA - Infectious Disease History Infectious Disease History: Reports: Chicken Pox, MRSA - Past Surgical History Head Surgeries/Procedures: Reports: None Other HEENT Surgeries/Procedures: DX; Strepthroat 01/15/15 Cardiovascular Surgical History: Reports: None Respiratory Surgical History: Reports: None GI Surgical History: Reports: Colonoscopy, EGD Female Surgical History: Reports: None Endocrine Surgical History: Reports: None Neurological Surgical History: Reports: None Musculoskeletal Surgical History: Reports: None Oncologic Surgical History: Reports: None Social & Family History - Family History Family Medical History: No Pertinent Family History Endocrine/Metabolic: Reports: Diabetes, type II Oncologic: Reports: Breast, Lung - Tobacco Use Tobacco Use Status *Q: Current Status Unknown Second Hand Smoke Exposure: No - Caffeine Use Caffeine Use: Reports: Tea - Recreational Drug Use Recreational Drug Use: No - Living Situation & Occupation Living situation: Reports: with Family ED ROS ENT - Review of Systems Review Of Systems: Comprehensive ROS is negative, except as noted in HPI. ED EXAM, ENT - Physical Exam Exam: See Below Exam Limited By: No Limitations General Appearance: Alert, No Apparent Distress Eye Exam: Bilateral Eye: PERRL Ears: Normal External Exam, Normal Canal, Hearing Grossly Normal, Normal TMs Nose: Normal Inspection, Normal Mucousa Mouth/Throat: Normal Inspection, Normal Lips, Normal Oropharynx Head: Atraumatic, Normocephalic Neck: Normal Inspection, Supple, Non-Tender Respiratory/Chest: No Respiratory Distress, Lungs Clear, Normal Breath Sounds, No Accessory Muscle Use, Chest Non-Tender Cardiovascular: Regular Rate, Rhythm, Tachycardia (Female) Exam: Deferred Rectal (Female) Exam: Deferred Neurological: Alert, Oriented Psychiatric: Normal Affect, Normal Mood Skin: Intact Lymphatic: No Adenopathy Course - Vital Signs Last Recorded V/S: Last Vital Signs Temp 96.3 F L 06/23/20 03:55 Pulse 84 06/23/20 03:55 Resp 18 06/23/20 03:55 BP 135/90 06/23/20 03:55 Pulse Ox 100 06/23/20 03:55 - Re-Assessments/Exams Free Text/Narrative Re-Assessment/Exam: Reviewed exam findings with patient. Encouraged her to continue zyrtec, push fluids, hot tea and rest. Also recommended humidifier or apply Vaseline into nostrils before bedtime. 06/24/20 18:02 Departure - Departure Time of Disposition: 03:43 Disposition: Home, Self-Care 01 Condition: Good Clinical Impression: Viral upper respiratory infection - Discharge Information Instructions: Viral Respiratory Infection, [id number] Forms: ED Department Discharge Additional Instructions: Encouraged her to push fluids, hot tea and rest. Also recommended humidifier or apply Vaseline into nostrils before bedtime. Follow-up with PCP in a couple of days. Sepsis Event Note (ED) - Evaluation Sepsis Screening Result: No Definite Risk
[2020-06-23 04:02] VITALS: BP 135/90; PULSE 84
== END 2020-06-23 03:58 | disposition home or self-care (01) ==
LOC: DL.ED 02:40
DX: O99.513 Diseases of the respiratory system complicating pregnancy, third trimester (principal); J06.9 Acute upper respiratory infection, unspecified; K21.9 Gastro-esophageal reflux disease without esophagitis; Z88.1 Allergy status to other antibiotic agents; Z79.899 Other long term (current) drug therapy; Z3A.31 31 weeks gestation of pregnancy
CPT/HCPCS: 99282; 99283

== ENCOUNTER 2020-08-15 11:29 | Inpatient (IN) | payer BC ==
--- NOTE | 2020-08-15 12:13 | EDM.PDOC ---
ED HPI GENERAL MEDICAL PROBLEM - General Chief Complaint: General Stated Complaint: HAD BABY ON 3RD, BACK STOMACH PAIN, FATIGUE Time Seen by Provider: 08/15/20 12:00 Source of Information: Reports: Patient History Limitations: Reports: No Limitations - History of Present Illness INITIAL COMMENTS - FREE TEXT/NARRATIVE: Patient comes emergency department today with complaints of shortness of breath back pain fatigue and abdominal pain primarily in the epigastric region. This patient had her second uneventful at 38 weeks gestation on 08-11-20 with an epidural. She had a vaginal delivery without any complications. She did have gestational diabetes. Shortly after hospital stay she was seen on 08-13-20 for very similar symptoms at [facility] in the ED. She had back pain abdominal pain and fatigue and shortness of breath. She was told that she had GERD and was treated for that. She is currently breast-feeding at home. She continues to be generalized fatigue and malaise. Pain in her back at the epidural site. No headache visual acuity changes. No weakness dizziness lightheadedness. No syncope. She has noticed that she becomes more short of breath with physical exertion as well as going up the steps. She is not short of breath at rest. She has had no pain in her chest. She does have some pain in the epigastric region primarily with sitting up. She has no abdominal pain nausea or vomiting. No hematuria dysuria or urinary frequency. No black tarry stools or diarrhea. Her vaginal bleeding or flow has decreased to minimal. She has no pelvic crampi ng. She has no history of blood clots. She does have quite a bit of peripheral edema that presented about 2 weeks prior to delivery. It is continued and not gotten much worse. She denies having pre-eclampsia during her late stage of . Her symptoms are no worse than they were 2 days ago when she was seen in the ED and has an appointment in the clinic tomorrow with OB tomorrow. Abdomen Pain Score (Numeric/FACES): 6 - Related Data Allergies Allergy/AdvReac Type Severity Reaction Status Date / Time clindamycin Allergy Hives Verified 08/15/20 11:49 lincomycin Allergy Hives Verified 08/15/20 11:49 Home Meds: Home Meds Sertraline HCl [Zoloft] 50 mg PO DAILY 12/16/15 [History] Cholecalciferol (Vitamin D3) [Vitamin D3] 1 tab PO BID 03/17/17 [History] Vit #49/Iron Fum/FA [Mini Tablet] 1 tab PO DAILY 11/01/18 [History] Ascorbic Acid [Vitamin C] 500 mg PO DAILY 06/17/20 [History] Ferrous Sulfate 325 mg PO DAILY 06/17/20 [History] Past Medical History HEENT History: Reports: Impaired Vision, Other (See Below) Other HEENT History: wears glasses, hx strep throat Cardiovascular History: Reports: None Respiratory History: Reports: Bronchitis, Recurrent, Pneumonia, Recurrent Gastrointestinal History: Reports: GERD, Helicobacter Pylori Other Gastrointestinal History: H-pilori Genitourinary History: Reports: UTI, Recurrent ENERGY ECONOMIST History: Reports: Other ENERGY ECONOMIST History: Menorrhagia Musculoskeletal History: Reports: Other (See Below) Other Musculoskeletal History: plantar fasciitis, hx bilat wrist fxs Neurological History: Reports: None Psychiatric History: Reports: Anxiety, Depression Endocrine/Metabolic History: Reports: Diabetes, Gestational, Vitamin D Deficiency Hematologic History: Reports: Anemia, Iron Deficiency Immunologic History: Reports: None Oncologic (Cancer) History: Reports: None Dermatologic History: Reports: Other (See Below) Other Dermatologic History: MRSA - Infectious Disease History Infectious Disease History: Reports: Chicken Pox, MRSA - Past Surgical History Head Surgeries/Procedures: Reports: None Other HEENT Surgeries/Procedures: DX; Strepthroat 01/15/15 Cardiovascular Surgical History: Reports: None Respiratory Surgical History: Reports: None GI Surgical History: Reports: Colonoscopy, EGD Female Surgical History: Reports: None Endocrine Surgical History: Reports: None Neurological Surgical History: Reports: None Musculoskeletal Surgical History: Reports: None Oncologic Surgical History: Reports: None Social & Family History - Family History Family Medical History: No Pertinent Family History Endocrine/Metabolic: Reports: Diabetes, type II Oncologic: Reports: Breast, Lung - Tobacco Use Tobacco Use Status *Q: Never Tobacco User Second Hand Smoke Exposure: No - Caffeine Use Caffeine Use: Reports: None - Recreational Drug Use Recreational Drug Use: No - Living Situation & Occupation Living situation: Reports: with Family ED ROS GENERAL - Review of Systems Review Of Systems: Comprehensive ROS is negative, except as noted in HPI. ED EXAM, GENERAL - Physical Exam Exam: See Below Exam Limited By: No Limitations General Appearance: Alert, WD/WN, No Apparent Distress, Obese (Morbidly) Eye Exam: Bilateral Eye: EOMI, PERRL Ears: Normal External Exam, Normal TMs Nose: Normal Inspection Throat/Mouth: Normal Inspection, Normal Lips, Normal Oropharynx, Normal Voice Head: Atraumatic, Normocephalic Neck: Normal Inspection, Supple, Non-Tender, Full Range of Motion Respiratory/Chest: No Respiratory Distress, Lungs Clear, Normal Breath Sounds, No Accessory Muscle Use, Chest Non-Tender Cardiovascular: Normal Peripheral Pulses, Regular Rate, Rhythm. No: No Murmur, Tachycardia Peripheral Pulses: 2+: Radial (L), Radial (R), Posterior Tibial (L), Posterior Tibial (R), Dorsalis Pedis (L), Dorsalis Pedis (R) GI/Abdominal: Normal Bowel Sounds, Soft, Non-Tender, No Mass, Other (When she is sitting up and flexed at the very epigastric region it feels like there is a small separation of the abdominal wall at the midline. There is no surgical scars previously in the abdomen. There is no noted hernia or mass. This does resolve when she lays flat.). No: Distended (Female) Exam: Deferred Rectal (Female) Exam: Deferred Back Exam: Normal Inspection, Full Range of Motion, Other (No bruising swelling ecchymosis tenderness or erythema or induration. ). No: Paraspinal Tenderness, Vertebral Tenderness Extremities: Non-Tender, Normal Capillary Refill, Pedal Edema (2+ equal bilaterally. No tenderness to the calves bilaterally. ). No: Kevan's Sign, Leg Pain Neurological: Alert, Oriented, CN II-XII Intact, Normal Cognition, Normal Gait, No Motor/Sensory Deficits, Other (She is hyper-reflexic in the lower extremities. No clonus. ) Psychiatric: Normal Affect, Normal Mood Skin Exam: Warm, Dry, Intact, Normal Color Course - Vital Signs Last Recorded V/S: Last Vital Signs Temp 96.5 F L 08/15/20 11:40 Pulse 64 08/15/20 11:40 Resp 16 08/15/20 11:40 BP 176/87 H 08/15/20 11:40 Pulse Ox 99 08/15/20 11:40 - Orders/Labs/Meds Orders: Active Orders 24 hr Category Date Time Status Patient Status [ADT] Routine ADT 08/15/20 14:17 Active Fluid Restriction [DIET] Diet 08/15/20 Lunch Active CBC WITH AUTO DIFF [HEME] DAILY Lab 08/16/20 06:00 Ordered CBC WITH AUTO DIFF [HEME] DAILY Lab 08/17/20 06:00 Ordered CBC WITH AUTO DIFF [HEME] DAILY Lab 08/18/20 06:00 Ordered COMPREHENSIVE METABOLIC PN,CMP [CHEM] DAILY Lab 08/16/20 06:00 Ordered COMPREHENSIVE METABOLIC PN,CMP [CHEM] DAILY Lab 08/17/20 06:00 Ordered COMPREHENSIVE METABOLIC PN,CMP [CHEM] DAILY Lab 08/18/20 06:00 Ordered CULTURE URINE [RM] Stat Lab 08/15/20 12:24 Received MAGNESIUM [CHEM] Q8H Lab 08/15/20 14:30 Ordered MAGNESIUM [CHEM] Q8H Lab 08/15/20 22:30 Ordered MAGNESIUM [CHEM] Q8H Lab 08/16/20 06:30 Ordered Calcium Gluconate Med 08/15/20 14:20 Active 1 gm IV ASDIRECTED PRN Magnesium Sulfate/Water [Magnesium Sulfate in Water 20 Med 08/15/20 14:30 Active GM/500 ML] 20 gm in 500 ml IV ASDIRECTED Sodium Chloride 0.9% [Saline Flush] Med 08/15/20 12:06 Active 10 ml FLUSH ASDIRECTED PRN Antiembolic Hose [OM.PC] Per Unit Routine Oth 08/15/20 14:22 Ordered Blood Pressure [OM.PC] Per Unit Routine Oth 08/15/20 14:17 Ordered DVT/VTE Prophylaxis Reflex [OM.PC] Routine Oth 08/15/20 14:17 Ordered Deep Tendon Reflexes [WOMSER] Per Unit Routine Oth 08/15/20 14:17 Ordered Medication Administration Instruction [OM.PC] Per Unit Oth 08/15/20 14:20 Ordered Routine Peripheral IV Insertion Adult [OM.PC] Stat Oth 08/15/20 12:06 Ordered Seizure Precautions [OM.PC] Per Unit Routine Oth 08/15/20 14:18 Ordered Medication Orders Calcium Gluconate (Calcium Gluconate 10% 1 Gm/10 Ml Sdv) 1 gm IV ASDIRECTED PRN PRN Reason: respiratory distress Magnesium Sulfate (Magnesium Sulfate In Water 20 Gm/500 Ml) 20 gm in 500 mls @ 50 mls/hr IV ASDIRECTED TEENA Sodium Chloride (Sodium Chloride 0.9% 10 Ml Syringe) 10 ml FLUSH ASDIRECTED PRN PRN Reason: Keep Vein Open Last Admin: 08/15/20 13:54 Dose: 10 ml Documented by: Admin: 08/15/20 12:28 Dose: 10 ml Documented by: [email or web address] Labs: Laboratory Tests 08/15/20 08/15/20 08/15/20 Range/Units 12:12 12:12 12:12 WBC 11.2 H (5.0-10.0) 10^3/uL RBC 3.20 L (4.2-5.4) 10^6/uL Hgb 10.1 L D (12.0-16.0) g/dL Hct 31.1 L (37.0-47.0) % MCV 97.2 D (80-100) fL MCH 31.6 (27.0-34.0) pg MCHC 32.5 L (33.0-35.0) g/dL Plt Count 259 D (150-450) 10^3/uL Neut % (Auto) 73.5 (42.2-75.2) % Lymph % (Auto) 16.4 L (20.5-50.1) % [place] % (Auto) 6.1 (2-8) % Eos % (Auto) 3.8 H (1.0-3.0) % Baso % (Auto) 0.2 (0.0-1.0) % Add Manual Diff Yes Neutrophils % (Manual) 71 (42-75) % Band Neutrophils % 7 % Lymphocytes % (Manual) 14 L (20-50) % Monocytes % (Manual) 5 (2-8) % Eosinophils % (Manual) 3 (1-3) % D-Dimer, Quantitative 2830 H (0-400) ng/mL Sodium 143 (136-145) mmol/L Potassium 4.4 (3.5-5.1) mmol/L Chloride 108 H (98-107) mmol/L Carbon Dioxide 25 (21-32) mmol/L Anion Gap 14.4 H (7-13) mEq/L BUN 12 (7-18) mg/dL Creatinine 0.76 (0.55-1.02) mg/dL Est Cr Clr Drug Dosing 94.73 mL/min Estimated GFR (MDRD) > 60 BUN/Creatinine Ratio 15.8 (No establ ref range) Glucose 84 (70-99) mg/dL Uric Acid (2.6-6.0) mg/dL Calcium 7.9 L (8.5-10.1) mg/dL Magnesium (1.8-2.4) mg/dL Total Bilirubin 0.3 (0.2-1.0) mg/dL AST 56 H (15-37) U/L ALT 52 (14-59) U/L Alkaline Phosphatase 115 (46-116) U/L Lactate Dehydrogenase (81-234) U/L Troponin I High Sens 12 (<=51) pg/mL Total Protein 5.8 L (6.4-8.2) g/dL Albumin 2.1 L (3.4-5.0) g/dL Globulin 3.7 Albumin/Globulin Ratio 0.57 Lipase (73-393) U/L Urine Color (YELLOW) Urine Appearance (CLEAR) Urine pH (5.0-9.0) Ur Specific [place] (1.005-1.030) Urine Protein (NEGATIVE) Urine Glucose (UA) (NEGATIVE) Urine Ketones (NEGATIVE) Urine Occult Blood (NEGATIVE) Urine Nitrite (NEGATIVE) Urine Bilirubin (NEGATIVE) Urine Urobilinogen (0.2-1.0) mg/dL Ur Leukocyte Esterase (NEGATIVE) Urine RBC /HPF Urine WBC (0-5/HPF) /HPF Ur Epithelial Cells (NOT SEEN) /HPF Urine Bacteria (0-FEW/HPF) /HPF Urine Mucus (NOT SEEN) /LPF Ur Random Creatinine (No establ ref range) mg/dL U Random Total Protein (0.0-11.9) mg/dL Protein/Creatinin Ratio (<150.0) mg/g SARS-CoV-2 RNA (FAITH) (NEGATIVE) 08/15/20 08/15/20 08/15/20 Range/Units 12:12 12:12 12:12 WBC (5.0-10.0) 10^3/uL RBC (4.2-5.4) 10^6/uL Hgb (12.0-16.0) g/dL Hct (37.0-47.0) % MCV (80-100) fL MCH (27.0-34.0) pg MCHC (33.0-35.0) g/dL Plt Count (150-450) 10^3/uL Neut % (Auto) (42.2-75.2) % Lymph % (Auto) (20.5-50.1) % [place] % (Auto) (2-8) % Eos % (Auto) (1.0-3.0) % Baso % (Auto) (0.0-1.0) % Add Manual Diff Neutrophils % (Manual) (42-75) % Band Neutrophils % % Lymphocytes % (Manual) (20-50) % Monocytes % (Manual) (2-8) % Eosinophils % (Manual) (1-3) % D-Dimer, Quantitative (0-400) ng/mL Sodium (136-145) mmol/L Potassium (3.5-5.1) mmol/L Chloride (98-107) mmol/L Carbon Dioxide (21-32) mmol/L Anion Gap (7-13) mEq/L BUN (7-18) mg/dL Creatinine (0.55-1.02) mg/dL Est Cr Clr Drug Dosing mL/min Estimated GFR (MDRD) BUN/Creatinine Ratio (No establ ref range) Glucose (70-99) mg/dL Uric Acid 4.8 (2.6-6.0) mg/dL Calcium (8.5-10.1) mg/dL Magnesium (1.8-2.4) mg/dL Total Bilirubin (0.2-1.0) mg/dL AST (15-37) U/L ALT (14-59) U/L Alkaline Phosphatase (46-116) U/L Lactate Dehydrogenase 425 H (81-234) U/L Troponin I High Sens (<=51) pg/mL Total Protein (6.4-8.2) g/dL Albumin (3.4-5.0) g/dL Globulin Albumin/Globulin Ratio Lipase 43 L (73-393) U/L Urine Color (YELLOW) Urine Appearance (CLEAR) Urine pH (5.0-9.0) Ur Specific [place] (1.005-1.030) Urine Protein (NEGATIVE) Urine Glucose (UA) (NEGATIVE) Urine Ketones (NEGATIVE) Urine Occult Blood (NEGATIVE) Urine Nitrite (NEGATIVE) Urine Bilirubin (NEGATIVE) Urine Urobilinogen (0.2-1.0) mg/dL Ur Leukocyte Esterase (NEGATIVE) Urine RBC /HPF Urine WBC (0-5/HPF) /HPF Ur Epithelial Cells (NOT SEEN) /HPF Urine Bacteria (0-FEW/HPF) /HPF Urine Mucus (NOT SEEN) /LPF Ur Random Creatinine (No establ ref range) mg/dL U Random Total Protein (0.0-11.9) mg/dL Protein/Creatinin Ratio (<150.0) mg/g SARS-CoV-2 RNA (FAITH) (NEGATIVE) 08/15/20 08/15/20 08/15/20 Range/Units 12:12 12:24 12:24 WBC (5.0-10.0) 10^3/uL RBC (4.2-5.4) 10^6/uL Hgb (12.0-16.0) g/dL Hct (37.0-47.0) % MCV (80-100) fL MCH (27.0-34.0) pg MCHC (33.0-35.0) g/dL Plt Count (150-450) 10^3/uL Neut % (Auto) (42.2-75.2) % Lymph % (Auto) (20.5-50.1) % [place] % (Auto) (2-8) % Eos % (Auto) (1.0-3.0) % Baso % (Auto) (0.0-1.0) % Add Manual Diff Neutrophils % (Manual) (42-75) % Band Neutrophils % % Lymphocytes % (Manual) (20-50) % Monocytes % (Manual) (2-8) % Eosinophils % (Manual) (1-3) % D-Dimer, Quantitative (0-400) ng/mL Sodium (136-145) mmol/L Potassium (3.5-5.1) mmol/L Chloride (98-107) mmol/L Carbon Dioxide (21-32) mmol/L Anion Gap (7-13) mEq/L BUN (7-18) mg/dL Creatinine (0.55-1.02) mg/dL Est Cr Clr Drug Dosing mL/min Estimated GFR (MDRD) BUN/Creatinine Ratio (No establ ref range) Glucose (70-99) mg/dL Uric Acid (2.6-6.0) mg/dL Calcium (8.5-10.1) mg/dL Magnesium 1.9 (1.8-2.4) mg/dL Total Bilirubin (0.2-1.0) mg/dL AST (15-37) U/L ALT (14-59) U/L Alkaline Phosphatase (46-116) U/L Lactate Dehydrogenase (81-234) U/L Troponin I High Sens (<=51) pg/mL Total Protein (6.4-8.2) g/dL Albumin (3.4-5.0) g/dL Globulin Albumin/Globulin Ratio Lipase (73-393) U/L Urine Color Yellow (YELLOW) Urine Appearance Slightly cloudy (CLEAR) Urine pH 6.0 (5.0-9.0) Ur Specific [place] 1.020 (1.005-1.030) Urine Protein 100 H (NEGATIVE) Urine Glucose (UA) Negative (NEGATIVE) Urine Ketones Negative (NEGATIVE) Urine Occult Blood Large H (NEGATIVE) Urine Nitrite Negative (NEGATIVE) Urine Bilirubin Negative (NEGATIVE) Urine Urobilinogen 0.2 (0.2-1.0) mg/dL Ur Leukocyte Esterase Small H (NEGATIVE) Urine RBC 5-10 H /HPF Urine WBC 5-10 H (0-5/HPF) /HPF Ur Epithelial Cells Few (NOT SEEN) /HPF Urine Bacteria Few (0-FEW/HPF) /HPF Urine Mucus Occasional (NOT SEEN) /LPF Ur Random Creatinine 87.14 (No establ ref range) mg/dL U Random Total Protein 48.1 H (0.0-11.9) mg/dL Protein/Creatinin Ratio 552.0 H (<150.0) mg/g SARS-CoV-2 RNA (FAITH) (NEGATIVE) 08/15/20 08/15/20 Range/Units 14:17 14:30 WBC (5.0-10.0) 10^3/uL RBC (4.2-5.4) 10^6/uL Hgb (12.0-16.0) g/dL Hct (37.0-47.0) % MCV (80-100) fL MCH (27.0-34.0) pg MCHC (33.0-35.0) g/dL Plt Count (150-450) 10^3/uL Neut % (Auto) (42.2-75.2) % Lymph % (Auto) (20.5-50.1) % [place] % (Auto) (2-8) % Eos % (Auto) (1.0-3.0) % Baso % (Auto) (0.0-1.0) % Add Manual Diff Neutrophils % (Manual) (42-75) % Band Neutrophils % % Lymphocytes % (Manual) (20-50) % Monocytes % (Manual) (2-8) % Eosinophils % (Manual) (1-3) % D-Dimer, Quantitative (0-400) ng/mL Sodium (136-145) mmol/L Potassium (3.5-5.1) mmol/L Chloride (98-107) mmol/L Carbon Dioxide (21-32) mmol/L Anion Gap (7-13) mEq/L BUN (7-18) mg/dL Creatinine (0.55-1.02) mg/dL Est Cr Clr Drug Dosing mL/min Estimated GFR (MDRD) BUN/Creatinine Ratio (No establ ref range) Glucose (70-99) mg/dL Uric Acid (2.6-6.0) mg/dL Calcium (8.5-10.1) mg/dL Magnesium (1.8-2.4) mg/dL Total Bilirubin (0.2-1.0) mg/dL AST (15-37) U/L ALT (14-59) U/L Alkaline Phosphatase (46-116) U/L Lactate Dehydrogenase (81-234) U/L Troponin I High Sens (<=51) pg/mL Total Protein (6.4-8.2) g/dL Albumin (3.4-5.0) g/dL Globulin Albumin/Globulin Ratio Lipase (73-393) U/L Urine Color (YELLOW) Urine Appearance (CLEAR) Urine pH (5.0-9.0) Ur Specific [place] (1.005-1.030) Urine Protein (NEGATIVE) Urine Glucose (UA) (NEGATIVE) Urine Ketones (NEGATIVE) Urine Occult Blood (NEGATIVE) Urine Nitrite (NEGATIVE) Urine Bilirubin (NEGATIVE) Urine Urobilinogen (0.2-1.0) mg/dL Ur Leukocyte Esterase (NEGATIVE) Urine RBC /HPF Urine WBC (0-5/HPF) /HPF Ur Epithelial Cells (NOT SEEN) /HPF Urine Bacteria (0-FEW/HPF) /HPF Urine Mucus (NOT SEEN) /LPF Ur Random Creatinine 39.11 (No establ ref range) mg/dL U Random Total Protein 12.6 H (0.0-11.9) mg/dL Protein/Creatinin Ratio 322.2 H (<150.0) mg/g SARS-CoV-2 RNA (FAITH) Negative (NEGATIVE) Meds: Medications Generic Name Dose Route Start Last Admin Trade Name Freq PRN Reason Stop Dose Admin Calcium Gluconate 1 gm 08/15/20 14:20 Calcium Gluconate 10% 1 Gm/10 Ml Sdv IV ASDIRECTED PRN respiratory distress Magnesium Sulfate 20 gm in 500 mls @ 50 mls/hr 08/15/20 14:30 Magnesium Sulfate In Water 20 Gm/500 Ml IV ASDIRECTED TEENA Sodium Chloride 10 ml 08/15/20 12:06 08/15/20 13:54 Sodium Chloride 0.9% 10 Ml Syringe FLUSH 10 ml ASDIRECTED PRN Administration Keep Vein Open Discontinued Medications Generic Name Dose Route Start Last Admin Trade Name Freq PRN Reason Stop Dose Admin Magnesium Sulfate 4 gm/ Premix 100 mls @ 300 mls/hr 08/15/20 14:17 IV 08/15/20 14:36 BOLUS ONE Iopamidol 100 ml 08/15/20 12:42 08/15/20 13:03 Iopamidol 755 Mg/Ml 100 Ml Bottle IVPUSH 08/15/20 12:43 80 ml ONETIME ONE Administration Labetalol HCl 20 mg 08/15/20 13:30 08/15/20 13:50 Labetalol 20 Mg/4 Ml Syringe IVPUSH 08/15/20 13:31 20 mg ONETIME ONE Administration - Radiology Interpretation Free Text/Narrative:: No sign of heart failure, lobar pneumonia or pulmonary embolism/infarct per radiology. Patchy atelectasis left lung base no alveolar infiltrate or perihilar groundglass interstitial lung densities. - Re-Assessments/Exams Free Text/Narrative Re-Assessment/Exam: 08/15/20 12:20 Reviewing her note in epic. There is no ED provider note completed. She did have a BC of approximately 16. A hemoglobin of 9.8. Comprehensive metabolic panel that was rather unremarkable. Her lipase was normal. I did not identify any other work-up at that time. 08/15/20 12:46 Her CBC WBC has improved down to 11.2, her hemoglobin has improved to 10.1. Her platelets are normal at 259. Her D-dimer is 2830. She is not tachypneic she is not hypoxic and she is not tachycardic. Although she does have subjective shortness of breath and back pain. She has bilateral lower extremity achiness but no Homans' sign. Peripheral edema. CT PE ordered. Although I have low clinical concern for the presence and the D Dimer is most likely due to her recent delivery of a child. Patient was noted to be quite hypertensive in the emergency department with a blood pressure 175/90 systolically. She was also elevated in [place] 2 days ago in the emergency department. 08/15/20 12:47 She also does have blood in her urine this is most likely due to the vaginal bleeding. And she also has elevated protein in her urine. 08/15/20 13:35 CT for PE was negative. Well although I have concerns for preeclampsia. With the peripheral edema her abdominal pain back pain shortness of breath fatigue as well as her proteinuria hypertension hyper-reflexia and peripheral edema. She has no headache visual acuity changes although she meets the rest of the criteria. I called and spoke with Dr. Harris who is on for OB and I relayed my concerns. She as well has the same concerns. We will start with IV labetalol and draw more labs and a cath UA and make determination if the patient needs to be hospitalized. I discussed the findings and concerns with the patient and reviewed her work up and my concerns and she is comfortable with this plan and her questions answered. 08/15/20 13:55 Dr. Tapia came and saw the patient in the ED. 08/15/20 15:32 Her creatinine to protein ratio is just greater than 0.3. At 0.322 which is the threshold for inpatient management. Dr. Tapia will admit the patient under observation. The patient is comfortable with this plan and her questions were answered. Departure - Departure Time of Disposition: 15:00 Disposition: Refer to Observation Clinical Impression: Pre-eclampsia, - Discharge Information Forms: ED Department Discharge Sepsis Event Note (ED) - Evaluation Sepsis Screening Result: No Definite Risk - Focused Exam Vital Signs: Vital Signs Temp Pulse Resp BP Pulse Ox 08/15/20 11:40 96.5 F L 64 16 176/87 H 99 - My Orders Last 24 Hours: My Active Orders 08/15/20 12:06 Sodium Chloride 0.9% [Saline Flush] 10 ml FLUSH ASDIRECTED PRN Peripheral IV Insertion Adult [OM.PC] Stat 07/07/21 12:24 CULTURE URINE [RM] Stat - Assessment/Plan Last 24 Hours: My Active Orders 08/15/20 12:06 Sodium Chloride 0.9% [Saline Flush] 10 ml FLUSH ASDIRECTED PRN Peripheral IV Insertion Adult [OM.PC] Stat 08/15/20 12:24 CULTURE URINE [RM] Stat
--- NOTE | 2020-08-15 12:24 | PCM.EKG ---
#1 Interpretation EKG Date: 08/15/20 Time: 12:21 Rhythm: NSR Rate (Beats/Min): 60 [place]: Normal P-Wave: Present QRS: Normal ST-T: Normal QT: Normal Comparison: No Change
[2020-08-15] MEDS: Sodium Chloride 0.9% 10 ML Syringe FLUSH PRN ×2 (12:28→13:54)
[2020-08-15 12:41] LABS: ANION GAP 14.4 mEq/L (7-13); CHLORIDE,CL 108 mmol/L (98-107); SODIUM,NA 143 mmol/L (136-145)
[2020-08-15] MEDS ORDERED: Iopamidol 755 Mg/ML 100 ML Bottle IVPUSH ONE (12:42)
--- NOTE | 2020-08-15 13:20 | CT ---
EXAMINATION: Chest w Cont SEX: Female AGE: 40 years CLINICAL HISTORY: 40-year-old 258 pound 4 day (vaginal delivery) female with shortness of breath and abnormally elevated serum D dimer (2830). Rule out pulmonary embolism/infarct. Scan technique: Volume acquisition of data emergency unenhanced CT scan of the chest (bony thorax, lungs and mediastinum) obtained during the intravenous administration 80 cc nonionic 370 contrast at 5 cc/s via injector per PE protocol while lying supine on the Siemens multislice scanner [place], [place]. All data archived in the PACS system for storage, reformatting axial/sagittal/coronal planes and study (lung/mediastinal windows). Interpretation: 1. Patchy atelectasis left lung base. No alveolar infiltrate or peripheral "groundglass" interstitial lung densities. 2. No intraluminal filling defect or thrombus identified in the pulmonary artery circulation. 3. No abnormal areas of lobar oligemia or peripheral "wedge-shaped" pleural-based infarcts ([place] sign). 4. No pleural effusions. 5. Normal cardiac silhouette. No pericardial effusion. No pulmonary vascular congestion or alveolar edema. 6. Normal caliber thoracic aorta. 7. No pneumothorax or pneumomediastinum. No cystic/bullous emphysematous lesions. No air trapping. CONCLUSION: Left lower lobe atelectasis. No sign of heart failure, lobar pneumonia or pulmonary embolism/infarct.
[2020-08-15] MEDS ORDERED: Labetalol 20 MG/4 ML Syringe IVPUSH ONE ×2 (13:30→15:44)
[2020-08-15] MEDS ORDERED: Magnesium Sulfate/Water 4 GM in Premix Bag 1 BAG IV ONE (14:17)
[2020-08-15] MEDS ORDERED: Calcium Gluconate 10% 1 GM/10 ML SDV IV PRN (14:20)
[2020-08-15] MEDS: Magnesium Sulfate/Water 20 GM/500 ML BAG IV SCH (16:36)
--- NOTE | 2020-08-15 18:21 | PCM.HP ---
<MalloryAlberto - Last Filed: 08/15/20 18:08> H&P History of Present Illness - General Date of Service: 08/15/20 Admit Problem/Dx: Admission Diagnosis/Problem Admission Diagnosis/Problem complications Source of Information: Patient History Limitations: Reports: No Limitations - History of Present Illness Initial Comments - Free Text/Narative: Ashley is a 40 yo female that is admitted for severe pre- eclampsia. Patient had a normal vaginal delivery on 08/11. complicated with diet controlled diabetes. Medications included Iron, prenatals, and Zoloft for anxiety. Her last delivery was 12 years ago. No history of HTN, gHTN, Pre- eclampsia, or eclampsia. Patient had an unremarkable day 1 and was discharge feeling well. The next day, 08/13, patient presented to the ED at [facility] in [place] with abdominal and back pain. Work-up including BP was unremarkable and patient was diagnosed with GERD and sent home. Today patient presented to the ED in [place] with worsening SOB and abdominal pain. BP was elevated (160-170s/90-110s) and proteinuria was noted consistent with severe pre-eclampsia. Onset of Symptoms: Reports: Today Location: Reports: Head, Abdomen, Back Quality: Reports: Dull, Pressure Severity: Moderate Improves with: Reports: None Worsens with: Reports: Breathing, Movement Associated Symptoms: Reports: Headaches, Shortness of Breath Abdomen Pain Score (Numeric/FACES): 6 - Related Data Allergies/Adverse Reactions: Allergies Allergy/AdvReac Type Severity Reaction Status Date / Time clindamycin Allergy Hives Verified 08/15/20 16:33 lincomycin Allergy Hives Verified 08/15/20 16:33 Home Medications: Home Meds Sertraline HCl [Zoloft] 50 mg PO DAILY 12/16/15 [History] Cholecalciferol (Vitamin D3) [Vitamin D3] 1 tab PO BID 03/17/17 [History] Vit #49/Iron Fum/FA [Mini Tablet] 1 tab PO DAILY 11/01/18 [History] Ascorbic Acid [Vitamin C] 500 mg PO DAILY 06/17/20 [History] Ferrous Sulfate 325 mg PO DAILY 06/17/20 [History] Acetaminophen [Pain Reliever] 500 mg PO Q4HR PRN 08/15/20 [History] Ibuprofen 600 mg PO Q6HR PRN 08/15/20 [History] Past Medical History HEENT History: Reports: Impaired Vision, Other (See Below) Other HEENT History: wears glasses, hx strep throat Cardiovascular History: Reports: None Respiratory History: Reports: Bronchitis, Recurrent, Pneumonia, Recurrent Gastrointestinal History: Reports: GERD, Helicobacter Pylori Other Gastrointestinal History: H-pilori Genitourinary History: Reports: UTI, Recurrent SWAMPER History: Reports: Other OB/BYN History: Menorrhagia Musculoskeletal History: Reports: Other (See Below) Other Musculoskeletal History: plantar fasciitis, hx bilat wrist fxs Neurological History: Reports: None Psychiatric History: Reports: Anxiety, Depression Endocrine/Metabolic History: Reports: Diabetes, Gestational, Vitamin D Deficiency Hematologic History: Reports: Anemia, Iron Deficiency Immunologic History: Reports: None Oncologic (Cancer) History: Reports: None Dermatologic History: Reports: Other (See Below) Other Dermatologic History: MRSA - Infectious Disease History Infectious Disease History: Reports: Chicken Pox, MRSA - Past Surgical History Head Surgeries/Procedures: Reports: None Other HEENT Surgeries/Procedures: DX; Strepthroat 01/15/15 Cardiovascular Surgical History: Reports: None Respiratory Surgical History: Reports: None GI Surgical History: Reports: Colonoscopy, EGD Female Surgical History: Reports: None Endocrine Surgical History: Reports: None Neurological Surgical History: Reports: None Musculoskeletal Surgical History: Reports: None Oncologic Surgical History: Reports: None Social & Family History - Family History Family Medical History: No Pertinent Family History Endocrine/Metabolic: Reports: Diabetes, type II Oncologic: Reports: Breast, Lung - Tobacco Use Tobacco Use Status *Q: Never Tobacco User Second Hand Smoke Exposure: No - Caffeine Use Caffeine Use: Reports: Soda, Tea - Recreational Drug Use Recreational Drug Use: No - Living Situation & Occupation Living situation: Reports: with Family H&P Review of Systems - Review of Systems: Review Of Systems: See Below General: Reports: No Symptoms HEENT: Reports: No Symptoms Pulmonary: Reports: Shortness of Breath Cardiovascular: Reports: Edema Gastrointestinal: Reports: Abdominal Pain Genitourinary: Reports: No Symptoms Musculoskeletal: Reports: Back Pain Skin: Reports: No Symptoms Psychiatric: Reports: No Symptoms Neurological: Reports: No Symptoms Hematologic/Lymphatic: Reports: No Symptoms Immunologic: Reports: No Symptoms Exam - Exam Exam: See Below - Vital Signs Vital Signs: Last Vital Signs Temp 97.9 F 08/15/20 17:00 Pulse 90 08/15/20 17:00 Resp 15 08/15/20 17:00 BP 156/90 H 08/15/20 17:00 Pulse Ox 97 08/15/20 17:00 Weight: 72.212 kg - Exam General: Alert, Oriented, 4 HEENT: PERRLA, Hearing Intact, Mucosa Moist & [place], Nares Patent, Normal Nasal Septum, Posterior Pharynx Clear, Conjunctiva Clear, EOMI, EACs Clear, TMs Clear Neck: Supple, Trachea Midline, 2 Lungs: Clear to Auscultation, Normal Respiratory Effort Cardiovascular: Regular Rate, Regular Rhythm GI/Abdominal Exam: Normal Bowel Sounds, Soft, Non-Tender, No Organomegaly, No Abnormal Bruit, No Mass, Pelvis Stable Extremities: Non-Tender, Pedal Edema Skin: Warm, Dry, Intact Neurological: Cranial Nerves Intact, Reflexes Equal Bilateral Neuro Extensive - Mental Status: Alert, Oriented x3, Normal Mood/Affect, Normal Cognition Psychiatric: Alert, Normal Affect, Normal Mood - Patient Data Lab Results Last 24 hrs: Laboratory Results - last 24 hr 08/15/20 08/15/20 08/15/20 Range/Units 12:12 12:12 12:12 WBC 11.2 H (5.0-10.0) 10^3/uL RBC 3.20 L (4.2-5.4) 10^6/uL Hgb 10.1 L D (12.0-16.0) g/dL Hct 31.1 L (37.0-47.0) % MCV 97.2 D (80-100) fL MCH 31.6 (27.0-34.0) pg MCHC 32.5 L (33.0-35.0) g/dL Plt Count 259 D (150-450) 10^3/uL Neut % (Auto) 73.5 (42.2-75.2) % Lymph % (Auto) 16.4 L (20.5-50.1) % Iron % (Auto) 6.1 (2-8) % Eos % (Auto) 3.8 H (1.0-3.0) % Baso % (Auto) 0.2 (0.0-1.0) % Add Manual Diff Yes Neutrophils % (Manual) 71 (42-75) % Band Neutrophils % 7 % Lymphocytes % (Manual) 14 L (20-50) % Monocytes % (Manual) 5 (2-8) % Eosinophils % (Manual) 3 (1-3) % D-Dimer, Quantitative 2830 H (0-400) ng/mL Sodium 143 (136-145) mmol/L Potassium 4.4 (3.5-5.1) mmol/L Chloride 108 H (98-107) mmol/L Carbon Dioxide 25 (21-32) mmol/L Anion Gap 14.4 H (7-13) mEq/L BUN 12 (7-18) mg/dL Creatinine 0.76 (0.55-1.02) mg/dL Est Cr Clr Drug Dosing 94.73 mL/min Estimated GFR (MDRD) > 60 BUN/Creatinine Ratio 15.8 (No establ ref range) Glucose 84 (70-99) mg/dL Uric Acid (2.6-6.0) mg/dL Calcium 7.9 L (8.5-10.1) mg/dL Magnesium (1.8-2.4) mg/dL Total Bilirubin 0.3 (0.2-1.0) mg/dL AST 56 H (15-37) U/L ALT 52 (14-59) U/L Alkaline Phosphatase 115 (46-116) U/L Lactate Dehydrogenase (81-234) U/L Troponin I High Sens 12 (<=51) pg/mL Total Protein 5.8 L (6.4-8.2) g/dL Albumin 2.1 L (3.4-5.0) g/dL Globulin 3.7 Albumin/Globulin Ratio 0.57 Lipase (73-393) U/L Urine Color (YELLOW) Urine Appearance (CLEAR) Urine pH (5.0-9.0) Ur Specific Braham (1.005-1.030) Urine Protein (NEGATIVE) Urine Glucose (UA) (NEGATIVE) Urine Ketones (NEGATIVE) Urine Occult Blood (NEGATIVE) Urine Nitrite (NEGATIVE) Urine Bilirubin (NEGATIVE) Urine Urobilinogen (0.2-1.0) mg/dL Ur Leukocyte Esterase (NEGATIVE) Urine RBC /HPF Urine WBC (0-5/HPF) /HPF Ur Epithelial Cells (NOT SEEN) /HPF Urine Bacteria (0-FEW/HPF) /HPF Urine Mucus (NOT SEEN) /LPF Ur Random Creatinine (No establ ref range) mg/dL U Random Total Protein (0.0-11.9) mg/dL Protein/Creatinin Ratio (<150.0) mg/g SARS-CoV-2 RNA (FAITH) (NEGATIVE) 08/15/20 08/15/20 08/15/20 Range/Units 12:12 12:12 12:12 WBC (5.0-10.0) 10^3/uL RBC (4.2-5.4) 10^6/uL Hgb (12.0-16.0) g/dL Hct (37.0-47.0) % MCV (80-100) fL MCH (27.0-34.0) pg MCHC (33.0-35.0) g/dL Plt Count (150-450) 10^3/uL Neut % (Auto) (42.2-75.2) % Lymph % (Auto) (20.5-50.1) % Iron % (Auto) (2-8) % Eos % (Auto) (1.0-3.0) % Baso % (Auto) (0.0-1.0) % Add Manual Diff Neutrophils % (Manual) (42-75) % Band Neutrophils % % Lymphocytes % (Manual) (20-50) % Monocytes % (Manual) (2-8) % Eosinophils % (Manual) (1-3) % D-Dimer, Quantitative (0-400) ng/mL Sodium (136-145) mmol/L Potassium (3.5-5.1) mmol/L Chloride (98-107) mmol/L Carbon Dioxide (21-32) mmol/L Anion Gap (7-13) mEq/L BUN (7-18) mg/dL Creatinine (0.55-1.02) mg/dL Est Cr Clr Drug Dosing mL/min Estimated GFR (MDRD) BUN/Creatinine Ratio (No establ ref range) Glucose (70-99) mg/dL Uric Acid 4.8 (2.6-6.0) mg/dL Calcium (8.5-10.1) mg/dL Magnesium (1.8-2.4) mg/dL Total Bilirubin (0.2-1.0) mg/dL AST (15-37) U/L ALT (14-59) U/L Alkaline Phosphatase (46-116) U/L Lactate Dehydrogenase 425 H (81-234) U/L Troponin I High Sens (<=51) pg/mL Total Protein (6.4-8.2) g/dL Albumin (3.4-5.0) g/dL Globulin Albumin/Globulin Ratio Lipase 43 L (73-393) U/L Urine Color (YELLOW) Urine Appearance (CLEAR) Urine pH (5.0-9.0) Ur Specific [place]ham (1.005-1.030) Urine Protein (NEGATIVE) Urine Glucose (UA) (NEGATIVE) Urine Ketones (NEGATIVE) Urine Occult Blood (NEGATIVE) Urine Nitrite (NEGATIVE) Urine Bilirubin (NEGATIVE) Urine Urobilinogen (0.2-1.0) mg/dL Ur Leukocyte Esterase (NEGATIVE) Urine RBC /HPF Urine WBC (0-5/HPF) /HPF Ur Epithelial Cells (NOT SEEN) /HPF Urine Bacteria (0-FEW/HPF) /HPF Urine Mucus (NOT SEEN) /LPF Ur Random Creatinine (No establ ref range) mg/dL U Random Total Protein (0.0-11.9) mg/dL Protein/Creatinin Ratio (<150.0) mg/g SARS-CoV-2 RNA (FAITH) (NEGATIVE) 08/15/20 08/15/20 08/15/20 Range/Units 12:12 12:24 12:24 WBC (5.0-10.0) 10^3/uL RBC (4.2-5.4) 10^6/uL Hgb (12.0-16.0) g/dL Hct (37.0-47.0) % MCV (80-100) fL MCH (27.0-34.0) pg MCHC (33.0-35.0) g/dL Plt Count (150-450) 10^3/uL Neut % (Auto) (42.2-75.2) % Lymph % (Auto) (20.5-50.1) % Iron % (Auto) (2-8) % Eos % (Auto) (1.0-3.0) % Baso % (Auto) (0.0-1.0) % Add Manual Diff Neutrophils % (Manual) (42-75) % Band Neutrophils % % Lymphocytes % (Manual) (20-50) % Monocytes % (Manual) (2-8) % Eosinophils % (Manual) (1-3) % D-Dimer, Quantitative (0-400) ng/mL Sodium (136-145) mmol/L Potassium (3.5-5.1) mmol/L Chloride (98-107) mmol/L Carbon Dioxide (21-32) mmol/L Anion Gap (7-13) mEq/L BUN (7-18) mg/dL Creatinine (0.55-1.02) mg/dL Est Cr Clr Drug Dosing mL/min Estimated GFR (MDRD) BUN/Creatinine Ratio (No establ ref range) Glucose (70-99) mg/dL Uric Acid (2.6-6.0) mg/dL Calcium (8.5-10.1) mg/dL Magnesium 1.9 (1.8-2.4) mg/dL Total Bilirubin (0.2-1.0) mg/dL AST (15-37) U/L ALT (14-59) U/L Alkaline Phosphatase (46-116) U/L Lactate Dehydrogenase (81-234) U/L Troponin I High Sens (<=51) pg/mL Total Protein (6.4-8.2) g/dL Albumin (3.4-5.0) g/dL Globulin Albumin/Globulin Ratio Lipase (73-393) U/L Urine Color Yellow (YELLOW) Urine Appearance Slightly cloudy (CLEAR) Urine pH 6.0 (5.0-9.0) Ur Specific [place]ham 1.020 (1.005-1.030) Urine Protein 100 H (NEGATIVE) Urine Glucose (UA) Negative (NEGATIVE) Urine Ketones Negative (NEGATIVE) Urine Occult Blood Large H (NEGATIVE) Urine Nitrite Negative (NEGATIVE) Urine Bilirubin Negative (NEGATIVE) Urine Urobilinogen 0.2 (0.2-1.0) mg/dL Ur Leukocyte Esterase Small H (NEGATIVE) Urine RBC 5-10 H /HPF Urine WBC 5-10 H (0-5/HPF) /HPF Ur Epithelial Cells Few (NOT SEEN) /HPF Urine Bacteria Few (0-FEW/HPF) /HPF Urine Mucus Occasional (NOT SEEN) /LPF Ur Random Creatinine 87.14 (No establ ref range) mg/dL U Random Total Protein 48.1 H (0.0-11.9) mg/dL Protein/Creatinin Ratio 552.0 H (<150.0) mg/g SARS-CoV-2 RNA (FAITH) (NEGATIVE) 08/15/20 08/15/20 Range/Units 14:17 14:30 WBC (5.0-10.0) 10^3/uL RBC (4.2-5.4) 10^6/uL Hgb (12.0-16.0) g/dL Hct (37.0-47.0) % MCV (80-100) fL MCH (27.0-34.0) pg MCHC (33.0-35.0) g/dL Plt Count (150-450) 10^3/uL Neut % (Auto) (42.2-75.2) % Lymph % (Auto) (20.5-50.1) % Iron % (Auto) (2-8) % Eos % (Auto) (1.0-3.0) % Baso % (Auto) (0.0-1.0) % Add Manual Diff Neutrophils % (Manual) (42-75) % Band Neutrophils % % Lymphocytes % (Manual) (20-50) % Monocytes % (Manual) (2-8) % Eosinophils % (Manual) (1-3) % D-Dimer, Quantitative (0-400) ng/mL Sodium (136-145) mmol/L Potassium (3.5-5.1) mmol/L Chloride (98-107) mmol/L Carbon Dioxide (21-32) mmol/L Anion Gap (7-13) mEq/L BUN (7-18) mg/dL Creatinine (0.55-1.02) mg/dL Est Cr Clr Drug Dosing mL/min Estimated GFR (MDRD) BUN/Creatinine Ratio (No establ ref range) Glucose (70-99) mg/dL Uric Acid (2.6-6.0) mg/dL Calcium (8.5-10.1) mg/dL Magnesium (1.8-2.4) mg/dL Total Bilirubin (0.2-1.0) mg/dL AST (15-37) U/L ALT (14-59) U/L Alkaline Phosphatase (46-116) U/L Lactate Dehydrogenase (81-234) U/L Troponin I High Sens (<=51) pg/mL Total Protein (6.4-8.2) g/dL Albumin (3.4-5.0) g/dL Globulin Albumin/Globulin Ratio Lipase (73-393) U/L Urine Color (YELLOW) Urine Appearance (CLEAR) Urine pH (5.0-9.0) Ur Specific Braham (1.005-1.030) Urine Protein (NEGATIVE) Urine Glucose (UA) (NEGATIVE) Urine Ketones (NEGATIVE) Urine Occult Blood (NEGATIVE) Urine Nitrite (NEGATIVE) Urine Bilirubin (NEGATIVE) Urine Urobilinogen (0.2-1.0) mg/dL Ur Leukocyte Esterase (NEGATIVE) Urine RBC /HPF Urine WBC (0-5/HPF) /HPF Ur Epithelial Cells (NOT SEEN) /HPF Urine Bacteria (0-FEW/HPF) /HPF Urine Mucus (NOT SEEN) /LPF Ur Random Creatinine 39.11 (No establ ref range) mg/dL U Random Total Protein 12.6 H (0.0-11.9) mg/dL Protein/Creatinin Ratio 322.2 H (<150.0) mg/g SARS-CoV-2 RNA (FAITH) Negative (NEGATIVE) Result Diagrams: 08/15/20 12:12 08/15/20 12:12 - Problem List (1) Pre-eclampsia, severe, condition SNOMED Code(s): 84175119, 171128418, 037758660 ICD Code: O14.15 - SEVERE PRE-ECLAMPSIA, COMPLICATING THE PUERPERIUM Status: Acute Current Visit: Yes Problem List Initiated/Reviewed/Updated: Yes Orders Last 24hrs: Active Orders 24 hr Category Date Time Status Admission Diagnosis [ADT] Routine ADT 08/15/20 15:44 Ordered Admission Status [Patient Status] [ADT] Routine ADT 08/15/20 15:43 Active Patient Status [ADT] Routine ADT 08/15/20 14:17 Active CBC WITH AUTO DIFF [HEME] Routine Lab 08/16/20 06:00 Ordered COMPREHENSIVE METABOLIC PN,CMP [CHEM] Routine Lab 08/16/20 06:00 Ordered CULTURE URINE [RM] Stat Lab 08/15/20 12:24 Received MAGNESIUM [CHEM] Routine Lab 08/16/20 06:00 Ordered MAGNESIUM [CHEM] Routine Lab 08/16/20 14:00 Ordered MAGNESIUM [CHEM] Timed Lab 08/15/20 22:30 Ordered Calcium Gluconate Med 08/15/20 14:20 Active 1 gm IV ASDIRECTED PRN Magnesium Sulfate/Water [Magnesium Sulfate in Water 20 Med 08/15/20 14:30 Active GM/500 ML] 20 gm in 500 ml IV ASDIRECTED Sodium Chloride 0.9% [Saline Flush] Med 08/15/20 12:06 Active 10 ml FLUSH ASDIRECTED PRN Antiembolic Hose [OM.PC] Per Unit Routine Oth 08/15/20 14:22 Ordered Blood Pressure [OM.PC] Per Unit Routine Ot 08/15/20 14:17 Ordered DVT/VTE Prophylaxis Reflex [OM.PC] Routine Ot 08/15/20 14:17 Ordered Deep Tendon Reflexes [WOMSER] Per Unit Routine Oth 08/15/20 14:17 Ordered Medication Administration Instruction [OM.PC] Per Unit Ot 08/15/20 14:20 Ordered Routine Peripheral IV Insertion Adult [OM.PC] Stat Ot 08/15/20 12:06 Ordered Seizure Precautions [OM.PC] Per Unit Routine Ot 08/15/20 14:18 Ordered Medication Orders Calcium Gluconate (Calcium Gluconate 10% 1 Gm/10 Ml Sdv) 1 gm IV ASDIRECTED PRN PRN Reason: respiratory distress Magnesium Sulfate (Magnesium Sulfate In Water 20 Gm/500 Ml) 20 gm in 500 mls @ 50 mls/hr IV ASDIRECTED TEENA Last Admin: 08/15/20 16:36 Dose: 50 mls/hr Documented by: ANUEL Sodium Chloride (Sodium Chloride 0.9% 10 Ml Syringe) 10 ml FLUSH ASDIRECTED PRN PRN Reason: Keep Vein Open Last Admin: 08/15/20 13:54 Dose: 10 ml Documented by: Admin: 08/15/20 12:28 Dose: 10 ml Documented by: ALFREDO Assessment/Plan Comment:: Severe Pre-eclampsia -Mg Sulfate per protocol -Monitor BPs -IV labetalol as needed for BP control if above 160/110 -Monitor Mg levels -Neuro checks -Seizure precautions -Tylenol for headache -Simethicone for gas pain -Patient can have snack but will try to reduce oral intake overnight -Recheck labs in AM <Edd Tapia - Last Filed: 08/17/20 07:29> H&P History of Present Illness - General Admit Problem/Dx: Admission Diagnosis/Problem Admission Diagnosis/Problem complications Exam - Vital Signs Vital Signs: Last Vital Signs Temp 98.4 F 07/09/21 03:00 Pulse 79 08/17/20 03:00 Resp 22 H 08/17/20 03:00 BP 147/78 H 08/17/20 03:00 Pulse Ox 92 L 08/17/20 03:00 - Patient Data Lab Results Last 24 hrs: Laboratory Results - last 24 hr 08/16/20 08/16/20 08/16/20 Range/Units 14:20 21:20 21:20 WBC 13.0 H (5.0-10.0) 10^3/uL RBC 3.57 L (4.2-5.4) 10^6/uL Hgb 11.2 L (12.0-16.0) g/dL Hct 34.1 L (37.0-47.0) % MCV 95.5 (80-100) fL MCH 31.4 (27.0-34.0) pg MCHC 32.8 L (33.0-35.0) g/dL Plt Count 279 (150-450) 10^3/uL Neut % (Auto) 81.9 H (42.2-75.2) % Lymph % (Auto) 10.6 L (20.5-50.1) % Iron % (Auto) 5.6 (2-8) % Eos % (Auto) 1.7 (1.0-3.0) % Baso % (Auto) 0.2 (0.0-1.0) % Add Manual Diff Yes Neutrophils % (Manual) 77 H (42-75) % Band Neutrophils % 5 % Lymphocytes % (Manual) 15 L (20-50) % Atypical Lymphs % 0 % Monocytes % (Manual) 3 (2-8) % PT 9.5 (9.0-12.0) SEC INR 0.9 (0.9-1.2) Sodium (136-145) mmol/L Potassium (3.5-5.1) mmol/L Chloride (98-107) mmol/L Carbon Dioxide (21-32) mmol/L Anion Gap (7-13) mEq/L BUN (7-18) mg/dL Creatinine (0.55-1.02) mg/dL Est Cr Clr Drug Dosing mL/min Estimated GFR (MDRD) BUN/Creatinine Ratio (No establ ref range) Glucose (70-99) mg/dL Calcium (8.5-10.1) mg/dL Magnesium 5.9 H (1.8-2.4) mg/dL Total Bilirubin (0.2-1.0) mg/dL AST (15-37) U/L ALT (14-59) U/L Alkaline Phosphatase (46-116) U/L Troponin I High Sens (<=51) pg/mL B-Natriuretic Peptide (0-100) pg/ml Total Protein (6.4-8.2) g/dL Albumin (3.4-5.0) g/dL Globulin Albumin/Globulin Ratio 08/16/20 08/17/20 08/17/20 Range/Units 21:20 05:35 05:35 WBC 10.5 H (5.0-10.0) 10^3/uL RBC 3.31 L (4.2-5.4) 10^6/uL Hgb 10.3 L (12.0-16.0) g/dL Hct 32.0 L (37.0-47.0) % MCV 96.7 (80-100) fL MCH 31.1 (27.0-34.0) pg MCHC 32.2 L (33.0-35.0) g/dL Plt Count 284 (150-450) 10^3/uL Neut % (Auto) 70.6 (42.2-75.2) % Lymph % (Auto) 18.6 L (20.5-50.1) % Iron % (Auto) 8.4 H (2-8) % Eos % (Auto) 2.2 (1.0-3.0) % Baso % (Auto) 0.2 (0.0-1.0) % Add Manual Diff Neutrophils % (Manual) (42-75) % Band Neutrophils % % Lymphocytes % (Manual) (20-50) % Atypical Lymphs % % Monocytes % (Manual) (2-8) % PT (9.0-12.0) SEC INR (0.9-1.2) Sodium 140 142 (136-145) mmol/L Potassium 3.7 3.5 (3.5-5.1) mmol/L Chloride 105 105 (98-107) mmol/L Carbon Dioxide 25 25 (21-32) mmol/L Anion Gap 13.7 H 15.5 H (7-13) mEq/L BUN 8 10 (7-18) mg/dL Creatinine 0.88 0.86 (0.55-1.02) mg/dL Est Cr Clr Drug Dosing 81.81 83.71 mL/min Estimated GFR (MDRD) > 60 > 60 BUN/Creatinine Ratio 9.1 11.6 (No establ ref range) Glucose 113 H 96 (70-99) mg/dL Calcium 7.0 L 6.8 L (8.5-10.1) mg/dL Magnesium (1.8-2.4) mg/dL Total Bilirubin 0.3 0.3 (0.2-1.0) mg/dL AST 39 H 31 (15-37) U/L ALT 57 47 (14-59) U/L Alkaline Phosphatase 122 H 107 (46-116) U/L Troponin I High Sens 22 (<=51) pg/mL B-Natriuretic Peptide 577 H (0-100) pg/ml Total Protein 6.1 L 5.6 L (6.4-8.2) g/dL Albumin 2.3 L 2.0 L (3.4-5.0) g/dL Globulin 3.8 3.6 Albumin/Globulin Ratio 0.61 0.56 Result Diagrams: 08/17/20 05:35 08/17/20 05:35 Nathanael Results Last 24 hrs: Microbiology 08/15/20 12:24 Urine Culture - Final Urine, Voided Orders Last 24hrs: Active Orders 24 hr Category Date Time Status Intake and Output Strict [RC] ASDIRECTED Care 08/16/20 20:38 Active General [Regular Diet] [DIET] Diet 08/16/20 Breakfast Active Labetalol [Normodyne] Med 08/16/20 21:00 Active 200 mg PO BID Melatonin Med 08/16/20 20:41 Active 3 mg PO BEDTIME PRN diphenhydrAMINE [Benadryl] Med 08/16/20 20:40 Active 25 mg PO BEDTIME PRN K Pad [Heat Therapy] [OM.PC] Routine Oth 08/16/20 21:30 Ordered Medication Orders Acetaminophen (Acetaminophen 325 Mg Tab) 650 mg PO Q4H PRN PRN Reason: Pain Last Admin: 08/17/20 02:55 Dose: 650 mg Documented by: [email or web address] Admin: 08/16/20 22:48 Dose: 650 mg Documented by: Admin: 08/16/20 18:50 Dose: 650 mg Documented by: Admin: 08/16/20 12:31 Dose: 650 mg Documented by: Admin: 08/16/20 08:35 Dose: 650 mg Documented by: Admin: 08/16/20 04:04 Dose: 650 mg Documented by: Admin: 08/15/20 23:33 Dose: 650 mg Documented by: Admin: 08/15/20 19:20 Dose: 650 mg Documented by: ANUEL Calcium Gluconate (Calcium Gluconate 10% 1 Gm/10 Ml Sdv) 1 gm IV ASDIRECTED PRN PRN Reason: respiratory distress Diphenhydramine HCl (Diphenhydramine 25 Mg Tab) 25 mg PO BEDTIME PRN PRN Reason: Insomnia Magnesium Sulfate (Magnesium Sulfate In Water 20 Gm/500 Ml) 20 gm in 500 mls @ 50 mls/hr IV ASDIRECTED TEENA Last Admin: 08/16/20 15:00 Dose: 50 mls/hr Documented by: Infusion: 08/16/20 14:07 Dose: 50 mls/hr Documented by: Admin: 08/16/20 04:07 Dose: 50 mls/hr Documented by: Infusion: 08/16/20 02:36 Dose: 50 mls/hr Documented by: Admin: 08/15/20 16:36 Dose: 50 mls/hr Documented by: ANUEL Labetalol HCl (Labetalol 100 Mg Tab) 200 mg PO BID [facility] Last Admin: 08/16/20 22:04 Dose: 200 mg Documented by: HERBERT Melatonin (Melatonin 3 Mg Tab) 3 mg PO BEDTIME PRN PRN Reason: Insomnia Last Admin: 08/16/20 22:43 Dose: 3 mg Documented by: HERBERT Simethicone (Simethicone 80 Mg Tab.Chew) 80 mg PO Q6H PRN PRN Reason: Abdominal Pain Last Admin: 08/17/20 02:55 Dose: 80 mg Documented by: Admin: 08/16/20 17:39 Dose: 80 mg Documented by: Admin: 08/16/20 14:16 Dose: 80 mg Documented by: [email or web address] Admin: 08/15/20 19:20 Dose: 80 mg Documented by: ANUEL Sodium Chloride (Sodium Chloride 0.9% 10 Ml Syringe) 10 ml FLUSH ASDIRECTED PRN PRN Reason: Keep Vein Open Last Admin: 08/15/20 13:54 Dose: 10 ml Documented by: [email or web address] Admin: 08/15/20 12:28 Dose: 10 ml Documented by: [id number] Assessment/Plan Comment:: Seen with resident Patient was personally seen and examined. I reviewed the noted scribed on my behalf and necessary changes have been made to reflect my opinion on the history, exam, assessment, and plan
[2020-08-15] MEDS: Simethicone 80 MG Tab.Chew PO PRN (19:20)
[2020-08-15] MEDS: Acetaminophen 325 MG Tab PO PRN ×2 (19:20→23:33)
[2020-08-16] MEDS ORDERED: Labetalol 20 MG/4 ML Syringe IVPUSH STA (02:08)
[2020-08-16] MEDS: Acetaminophen 325 MG Tab PO PRN ×5 (04:04→22:48)
[2020-08-16] MEDS: Magnesium Sulfate/Water 20 GM/500 ML BAG IV SCH ×2 (04:07→15:00)
[2020-08-16 06:58] LABS: ANION GAP 12.6 mEq/L (7-13); CHLORIDE,CL 108 mmol/L (98-107); SODIUM,NA 142 mmol/L (136-145)
--- NOTE | 2020-08-16 07:39 | PCM.PN ---
<Alberto Tejada - Last Filed: 08/16/20 07:34> - General Info Date of Service: 08/16/20 Admission Dx/Problem (Free Text): Admission Diagnosis/Problem Admission Diagnosis/Problem complications pre-eclampsia Subjective Update: Patient is doing ok this morning. Still having a headache, 5/10, but this is improved and manageable with tylenol. No vision changes. Mild abdominal discomfort but improved from yesterday. Last BM was yesterday. She was able to tolerate a sandwich and some water. No N/V. She has no other complaints. Functional Status: Reports: Pain Controlled, Tolerating Diet - Review of Systems General: Reports: No Symptoms HEENT: Reports: No Symptoms Pulmonary: Reports: No Symptoms Cardiovascular: Reports: No Symptoms Gastrointestinal: Reports: Abdominal Pain Genitourinary: Reports: No Symptoms Musculoskeletal: Reports: No Symptoms Skin: Reports: No Symptoms Neurological: Reports: Headache - Patient Data Vitals - Most Recent: Last Vital Signs Temp 98.2 F 08/16/20 06:00 Pulse 81 08/16/20 06:00 Resp 18 08/16/20 06:00 BP 145/79 H 08/16/20 06:00 Pulse Ox 98 08/16/20 06:00 Weight - Most Recent: 72.212 kg I&O - Last 24 Hours: Intake & Output 08/15/20 08/16/20 08/16/20 22:59 06:59 14:59 Intake Total 720 500 Output Total 2600 3950 350 Balance -1880 -3450 -350 Lab Results Last 24 Hours: Laboratory Results - last 24 hr 08/15/20 08/15/20 08/15/20 Range/Units 12:12 12:12 12:12 WBC 11.2 H (5.0-10.0) 10^3/uL RBC 3.20 L (4.2-5.4) 10^6/uL Hgb 10.1 L D (12.0-16.0) g/dL Hct 31.1 L (37.0-47.0) % MCV 97.2 D (80-100) fL MCH 31.6 (27.0-34.0) pg MCHC 32.5 L (33.0-35.0) g/dL Plt Count 259 D (150-450) 10^3/uL Neut % (Auto) 73.5 (42.2-75.2) % Lymph % (Auto) 16.4 L (20.5-50.1) % [place] % (Auto) 6.1 (2-8) % Eos % (Auto) 3.8 H (1.0-3.0) % Baso % (Auto) 0.2 (0.0-1.0) % Add Manual Diff Yes Neutrophils % (Manual) 71 (42-75) % Band Neutrophils % 7 % Lymphocytes % (Manual) 14 L (20-50) % Monocytes % (Manual) 5 (2-8) % Eosinophils % (Manual) 3 (1-3) % D-Dimer, Quantitative 2830 H (0-400) ng/mL Sodium 143 (136-145) mmol/L Potassium 4.4 (3.5-5.1) mmol/L Chloride 108 H (98-107) mmol/L Carbon Dioxide 25 (21-32) mmol/L Anion Gap 14.4 H (7-13) mEq/L BUN 12 (7-18) mg/dL Creatinine 0.76 (0.55-1.02) mg/dL Est Cr Clr Drug Dosing 94.73 mL/min Estimated GFR (MDRD) > 60 BUN/Creatinine Ratio 15.8 (No establ ref range) Glucose 84 (70-99) mg/dL Uric Acid (2.6-6.0) mg/dL Calcium 7.9 L (8.5-10.1) mg/dL Magnesium (1.8-2.4) mg/dL Total Bilirubin 0.3 (0.2-1.0) mg/dL AST 56 H (15-37) U/L ALT 52 (14-59) U/L Alkaline Phosphatase 115 (46-116) U/L Lactate Dehydrogenase (81-234) U/L Troponin I High Sens 12 (<=51) pg/mL Total Protein 5.8 L (6.4-8.2) g/dL Albumin 2.1 L (3.4-5.0) g/dL Globulin 3.7 Albumin/Globulin Ratio 0.57 Lipase (73-393) U/L Urine Color (YELLOW) Urine Appearance (CLEAR) Urine pH (5.0-9.0) Ur Specific [place] (1.005-1.030) Urine Protein (NEGATIVE) Urine Glucose (UA) (NEGATIVE) Urine Ketones (NEGATIVE) Urine Occult Blood (NEGATIVE) Urine Nitrite (NEGATIVE) Urine Bilirubin (NEGATIVE) Urine Urobilinogen (0.2-1.0) mg/dL Ur Leukocyte Esterase (NEGATIVE) Urine RBC /HPF Urine WBC (0-5/HPF) /HPF Ur Epithelial Cells (NOT SEEN) /HPF Urine Bacteria (0-FEW/HPF) /HPF Urine Mucus (NOT SEEN) /LPF Ur Random Creatinine (No establ ref range) mg/dL U Random Total Protein (0.0-11.9) mg/dL Protein/Creatinin Ratio (<150.0) mg/g SARS-CoV-2 RNA (FAITH) (NEGATIVE) 08/15/20 08/15/20 08/15/20 Range/Units 12:12 12:12 12:12 WBC (5.0-10.0) 10^3/uL RBC (4.2-5.4) 10^6/uL Hgb (12.0-16.0) g/dL Hct (37.0-47.0) % MCV (80-100) fL MCH (27.0-34.0) pg MCHC (33.0-35.0) g/dL Plt Count (150-450) 10^3/uL Neut % (Auto) (42.2-75.2) % Lymph % (Auto) (20.5-50.1) % [place] % (Auto) (2-8) % Eos % (Auto) (1.0-3.0) % Baso % (Auto) (0.0-1.0) % Add Manual Diff Neutrophils % (Manual) (42-75) % Band Neutrophils % % Lymphocytes % (Manual) (20-50) % Monocytes % (Manual) (2-8) % Eosinophils % (Manual) (1-3) % D-Dimer, Quantitative (0-400) ng/mL Sodium (136-145) mmol/L Potassium (3.5-5.1) mmol/L Chloride (98-107) mmol/L Carbon Dioxide (21-32) mmol/L Anion Gap (7-13) mEq/L BUN (7-18) mg/dL Creatinine (0.55-1.02) mg/dL Est Cr Clr Drug Dosing mL/min Estimated GFR (MDRD) BUN/Creatinine Ratio (No establ ref range) Glucose (70-99) mg/dL Uric Acid 4.8 (2.6-6.0) mg/dL Calcium (8.5-10.1) mg/dL Magnesium (1.8-2.4) mg/dL Total Bilirubin (0.2-1.0) mg/dL AST (15-37) U/L ALT (14-59) U/L Alkaline Phosphatase (46-116) U/L Lactate Dehydrogenase 425 H (81-234) U/L Troponin I High Sens (<=51) pg/mL Total Protein (6.4-8.2) g/dL Albumin (3.4-5.0) g/dL Globulin Albumin/Globulin Ratio Lipase 43 L (73-393) U/L Urine Color (YELLOW) Urine Appearance (CLEAR) Urine pH (5.0-9.0) Ur Specific [place] (1.005-1.030) Urine Protein (NEGATIVE) Urine Glucose (UA) (NEGATIVE) Urine Ketones (NEGATIVE) Urine Occult Blood (NEGATIVE) Urine Nitrite (NEGATIVE) Urine Bilirubin (NEGATIVE) Urine Urobilinogen (0.2-1.0) mg/dL Ur Leukocyte Esterase (NEGATIVE) Urine RBC /HPF Urine WBC (0-5/HPF) /HPF Ur Epithelial Cells (NOT SEEN) /HPF Urine Bacteria (0-FEW/HPF) /HPF Urine Mucus (NOT SEEN) /LPF Ur Random Creatinine (No establ ref range) mg/dL U Random Total Protein (0.0-11.9) mg/dL Protein/Creatinin Ratio (<150.0) mg/g SARS-CoV-2 RNA (FAITH) (NEGATIVE) 08/15/20 08/15/20 08/15/20 Range/Units 12:12 12:24 12:24 WBC (5.0-10.0) 10^3/uL RBC (4.2-5.4) 10^6/uL Hgb (12.0-16.0) g/dL Hct (37.0-47.0) % MCV (80-100) fL MCH (27.0-34.0) pg MCHC (33.0-35.0) g/dL Plt Count (150-450) 10^3/uL Neut % (Auto) (42.2-75.2) % Lymph % (Auto) (20.5-50.1) % [place] % (Auto) (2-8) % Eos % (Auto) (1.0-3.0) % Baso % (Auto) (0.0-1.0) % Add Manual Diff Neutrophils % (Manual) (42-75) % Band Neutrophils % % Lymphocytes % (Manual) (20-50) % Monocytes % (Manual) (2-8) % Eosinophils % (Manual) (1-3) % D-Dimer, Quantitative (0-400) ng/mL Sodium (136-145) mmol/L Potassium (3.5-5.1) mmol/L Chloride (98-107) mmol/L Carbon Dioxide (21-32) mmol/L Anion Gap (7-13) mEq/L BUN (7-18) mg/dL Creatinine (0.55-1.02) mg/dL Est Cr Clr Drug Dosing mL/min Estimated GFR (MDRD) BUN/Creatinine Ratio (No establ ref range) Glucose (70-99) mg/dL Uric Acid (2.6-6.0) mg/dL Calcium (8.5-10.1) mg/dL Magnesium 1.9 (1.8-2.4) mg/dL Total Bilirubin (0.2-1.0) mg/dL AST (15-37) U/L ALT (14-59) U/L Alkaline Phosphatase (46-116) U/L Lactate Dehydrogenase (81-234) U/L Troponin I High Sens (<=51) pg/mL Total Protein (6.4-8.2) g/dL Albumin (3.4-5.0) g/dL Globulin Albumin/Globulin Ratio Lipase (73-393) U/L Urine Color Yellow (YELLOW) Urine Appearance Slightly cloudy (CLEAR) Urine pH 6.0 (5.0-9.0) Ur Specific [place] 1.020 (1.005-1.030) Urine Protein 100 H (NEGATIVE) Urine Glucose (UA) Negative (NEGATIVE) Urine Ketones Negative (NEGATIVE) Urine Occult Blood Large H (NEGATIVE) Urine Nitrite Negative (NEGATIVE) Urine Bilirubin Negative (NEGATIVE) Urine Urobilinogen 0.2 (0.2-1.0) mg/dL Ur Leukocyte Esterase Small H (NEGATIVE) Urine RBC 5-10 H /HPF Urine WBC 5-10 H (0-5/HPF) /HPF Ur Epithelial Cells Few (NOT SEEN) /HPF Urine Bacteria Few (0-FEW/HPF) /HPF Urine Mucus Occasional (NOT SEEN) /LPF Ur Random Creatinine 87.14 (No establ ref range) mg/dL U Random Total Protein 48.1 H (0.0-11.9) mg/dL Protein/Creatinin Ratio 552.0 H (<150.0) mg/g SARS-CoV-2 RNA (FAITH) (NEGATIVE) 08/15/20 08/15/20 08/15/20 Range/Units 14:17 14:30 22:30 WBC (5.0-10.0) 10^3/uL RBC (4.2-5.4) 10^6/uL Hgb (12.0-16.0) g/dL Hct (37.0-47.0) % MCV (80-100) fL MCH (27.0-34.0) pg MCHC (33.0-35.0) g/dL Plt Count (150-450) 10^3/uL Neut % (Auto) (42.2-75.2) % Lymph % (Auto) (20.5-50.1) % [place] % (Auto) (2-8) % Eos % (Auto) (1.0-3.0) % Baso % (Auto) (0.0-1.0) % Add Manual Diff Neutrophils % (Manual) (42-75) % Band Neutrophils % % Lymphocytes % (Manual) (20-50) % Monocytes % (Manual) (2-8) % Eosinophils % (Manual) (1-3) % D-Dimer, Quantitative (0-400) ng/mL Sodium (136-145) mmol/L Potassium (3.5-5.1) mmol/L Chloride (98-107) mmol/L Carbon Dioxide (21-32) mmol/L Anion Gap (7-13) mEq/L BUN (7-18) mg/dL Creatinine (0.55-1.02) mg/dL Est Cr Clr Drug Dosing mL/min Estimated GFR (MDRD) BUN/Creatinine Ratio (No establ ref range) Glucose (70-99) mg/dL Uric Acid (2.6-6.0) mg/dL Calcium (8.5-10.1) mg/dL Magnesium 4.3 H (1.8-2.4) mg/dL Total Bilirubin (0.2-1.0) mg/dL AST (15-37) U/L ALT (14-59) U/L Alkaline Phosphatase (46-116) U/L Lactate Dehydrogenase (81-234) U/L Troponin I High Sens (<=51) pg/mL Total Protein (6.4-8.2) g/dL Albumin (3.4-5.0) g/dL Globulin Albumin/Globulin Ratio Lipase (73-393) U/L Urine Color (YELLOW) Urine Appearance (CLEAR) Urine pH (5.0-9.0) Ur Specific [place] (1.005-1.030) Urine Protein (NEGATIVE) Urine Glucose (UA) (NEGATIVE) Urine Ketones (NEGATIVE) Urine Occult Blood (NEGATIVE) Urine Nitrite (NEGATIVE) Urine Bilirubin (NEGATIVE) Urine Urobilinogen (0.2-1.0) mg/dL Ur Leukocyte Esterase (NEGATIVE) Urine RBC /HPF Urine WBC (0-5/HPF) /HPF Ur Epithelial Cells (NOT SEEN) /HPF Urine Bacteria (0-FEW/HPF) /HPF Urine Mucus (NOT SEEN) /LPF Ur Random Creatinine 39.11 (No establ ref range) mg/dL U Random Total Protein 12.6 H (0.0-11.9) mg/dL Protein/Creatinin Ratio 322.2 H (<150.0) mg/g SARS-CoV-2 RNA (FAITH) Negative (NEGATIVE) 08/16/20 08/16/20 Range/Units 06:23 06:23 WBC 11.4 H (5.0-10.0) 10^3/uL RBC 3.35 L (4.2-5.4) 10^6/uL Hgb 10.4 L (12.0-16.0) g/dL Hct 32.5 L (37.0-47.0) % MCV 97.0 (80-100) fL MCH 31.0 (27.0-34.0) pg MCHC 32.0 L (33.0-35.0) g/dL Plt Count 259 (150-450) 10^3/uL Neut % (Auto) 74.2 (42.2-75.2) % Lymph % (Auto) 15.3 L (20.5-50.1) % [place] % (Auto) 7.2 (2-8) % Eos % (Auto) 3.1 H (1.0-3.0) % Baso % (Auto) 0.2 (0.0-1.0) % Add Manual Diff Neutrophils % (Manual) (42-75) % Band Neutrophils % % Lymphocytes % (Manual) (20-50) % Monocytes % (Manual) (2-8) % Eosinophils % (Manual) (1-3) % D-Dimer, Quantitative (0-400) ng/mL Sodium 142 (136-145) mmol/L Potassium 3.6 (3.5-5.1) mmol/L Chloride 108 H (98-107) mmol/L Carbon Dioxide 25 (21-32) mmol/L Anion Gap 12.6 (7-13) mEq/L BUN 8 (7-18) mg/dL Creatinine 0.76 (0.55-1.02) mg/dL Est Cr Clr Drug Dosing 94.73 mL/min Estimated GFR (MDRD) > 60 BUN/Creatinine Ratio 10.5 (No establ ref range) Glucose 106 H (70-99) mg/dL Uric Acid (2.6-6.0) mg/dL Calcium 7.2 L (8.5-10.1) mg/dL Magnesium 5.4 H (1.8-2.4) mg/dL Total Bilirubin 0.2 (0.2-1.0) mg/dL AST 43 H (15-37) U/L ALT 55 (14-59) U/L Alkaline Phosphatase 111 (46-116) U/L Lactate Dehydrogenase (81-234) U/L Troponin I High Sens (<=51) pg/mL Total Protein 5.6 L (6.4-8.2) g/dL Albumin 2.2 L (3.4-5.0) g/dL Globulin 3.4 Albumin/Globulin Ratio 0.65 Lipase (73-393) U/L Urine Color (YELLOW) Urine Appearance (CLEAR) Urine pH (5.0-9.0) Ur Specific [place] (1.005-1.030) Urine Protein (NEGATIVE) Urine Glucose (UA) (NEGATIVE) Urine Ketones (NEGATIVE) Urine Occult Blood (NEGATIVE) Urine Nitrite (NEGATIVE) Urine Bilirubin (NEGATIVE) Urine Urobilinogen (0.2-1.0) mg/dL Ur Leukocyte Esterase (NEGATIVE) Urine RBC /HPF Urine WBC (0-5/HPF) /HPF Ur Epithelial Cells (NOT SEEN) /HPF Urine Bacteria (0-FEW/HPF) /HPF Urine Mucus (NOT SEEN) /LPF Ur Random Creatinine (No establ ref range) mg/dL U Random Total Protein (0.0-11.9) mg/dL Protein/Creatinin Ratio (<150.0) mg/g SARS-CoV-2 RNA (FAITH) (NEGATIVE) Nathanael Results Last 24 Hours: Microbiology 08/15/20 12:24 Urine Culture - Preliminary Urine, Voided Med Orders - Current: Current Medications Acetaminophen (Acetaminophen 325 Mg Tab) 650 mg PO Q4H PRN PRN Reason: Pain Last Admin: 08/16/20 04:04 Dose: 650 mg Documented by: Calcium Gluconate (Calcium Gluconate 10% 1 Gm/10 Ml Sdv) 1 gm IV ASDIRECTED PRN PRN Reason: respiratory distress Magnesium Sulfate (Magnesium Sulfate In Water 20 Gm/500 Ml) 20 gm in 500 mls @ 50 mls/hr IV ASDIRECTED TEENA Last Admin: 08/16/20 04:07 Dose: 50 mls/hr Documented by: Simethicone (Simethicone 80 Mg Tab.Chew) 80 mg PO Q6H PRN PRN Reason: Abdominal Pain Last Admin: 08/15/20 19:20 Dose: 80 mg Documented by: Sodium Chloride (Sodium Chloride 0.9% 10 Ml Syringe) 10 ml FLUSH ASDIRECTED PRN PRN Reason: Keep Vein Open Last Admin: 08/15/20 13:54 Dose: 10 ml Documented by: Discontinued Medications Magnesium Sulfate 4 gm/ Premix 100 mls @ 300 mls/hr IV BOLUS ONE Stop: 08/15/20 14:36 Last Admin: 08/15/20 16:07 Dose: 300 mls/hr Documented by: Iopamidol (Iopamidol 755 Mg/Ml 100 Ml Bottle) 100 ml IVPUSH ONETIME ONE Stop: 08/15/20 12:43 Last Admin: 08/15/20 13:03 Dose: 80 ml Documented by: Labetalol HCl (Labetalol 20 Mg/4 Ml Syringe) 20 mg IVPUSH ONETIME ONE Stop: 08/15/20 13:31 Last Admin: 08/15/20 13:50 Dose: 20 mg Documented by: Labetalol HCl (Labetalol 20 Mg/4 Ml Syringe) 20 mg IVPUSH ONETIME ONE Stop: 08/15/20 15:45 Last Admin: 08/15/20 16:03 Dose: 20 mg Documented by: Labetalol HCl (Labetalol 20 Mg/4 Ml Syringe) 10 mg IVPUSH ONETIME STA Stop: 08/16/20 02:09 Last Admin: 08/16/20 02:24 Dose: 10 mg Documented by: - Exam Quality Assessment: Supplemental Oxygen General: Alert, Oriented HEENT: Pupils Equal, Pupils Reactive, EOMI, Mucous Membr. Moist/[place] Neck: Supple Lungs: Clear to Auscultation, Normal Respiratory Effort Cardiovascular: Regular Rate, Regular Rhythm GI/Abdominal Exam: Normal Bowel Sounds, Soft, No Organomegaly, No Distention, No Abnormal Bruit, No Mass, Pelvis Stable, Tender Extremities: Normal Inspection, Non-Tender, Pedal Edema Skin: Warm, Dry, Intact Neurological: No New Focal Deficit - Patient Data Lab Results Last 24 hrs: Laboratory Results - last 24 hr 08/15/20 08/15/20 08/15/20 Range/Units 12:12 12:12 12:12 WBC 11.2 H (5.0-10.0) 10^3/uL RBC 3.20 L (4.2-5.4) 10^6/uL Hgb 10.1 L D (12.0-16.0) g/dL Hct 31.1 L (37.0-47.0) % MCV 97.2 D (80-100) fL MCH 31.6 (27.0-34.0) pg MCHC 32.5 L (33.0-35.0) g/dL Plt Count 259 D (150-450) 10^3/uL Neut % (Auto) 73.5 (42.2-75.2) % Lymph % (Auto) 16.4 L (20.5-50.1) % [place] % (Auto) 6.1 (2-8) % Eos % (Auto) 3.8 H (1.0-3.0) % Baso % (Auto) 0.2 (0.0-1.0) % Add Manual Diff Yes Neutrophils % (Manual) 71 (42-75) % Band Neutrophils % 7 % Lymphocytes % (Manual) 14 L (20-50) % Monocytes % (Manual) 5 (2-8) % Eosinophils % (Manual) 3 (1-3) % D-Dimer, Quantitative 2830 H (0-400) ng/mL Sodium 143 (136-145) mmol/L Potassium 4.4 (3.5-5.1) mmol/L Chloride 108 H (98-107) mmol/L Carbon Dioxide 25 (21-32) mmol/L Anion Gap 14.4 H (7-13) mEq/L BUN 12 (7-18) mg/dL Creatinine 0.76 (0.55-1.02) mg/dL Est Cr Clr Drug Dosing 94.73 mL/min Estimated GFR (MDRD) > 60 BUN/Creatinine Ratio 15.8 (No establ ref range) Glucose 84 (70-99) mg/dL Uric Acid (2.6-6.0) mg/dL Calcium 7.9 L (8.5-10.1) mg/dL Magnesium (1.8-2.4) mg/dL Total Bilirubin 0.3 (0.2-1.0) mg/dL AST 56 H (15-37) U/L ALT 52 (14-59) U/L Alkaline Phosphatase 115 (46-116) U/L Lactate Dehydrogenase (81-234) U/L Troponin I High Sens 12 (<=51) pg/mL Total Protein 5.8 L (6.4-8.2) g/dL Albumin 2.1 L (3.4-5.0) g/dL Globulin 3.7 Albumin/Globulin Ratio 0.57 Lipase (73-393) U/L Urine Color (YELLOW) Urine Appearance (CLEAR) Urine pH (5.0-9.0) Ur Specific [place] (1.005-1.030) Urine Protein (NEGATIVE) Urine Glucose (UA) (NEGATIVE) Urine Ketones (NEGATIVE) Urine Occult Blood (NEGATIVE) Urine Nitrite (NEGATIVE) Urine Bilirubin (NEGATIVE) Urine Urobilinogen (0.2-1.0) mg/dL Ur Leukocyte Esterase (NEGATIVE) Urine RBC /HPF Urine WBC (0-5/HPF) /HPF Ur Epithelial Cells (NOT SEEN) /HPF Urine Bacteria (0-FEW/HPF) /HPF Urine Mucus (NOT SEEN) /LPF Ur Random Creatinine (No establ ref range) mg/dL U Random Total Protein (0.0-11.9) mg/dL Protein/Creatinin Ratio (<150.0) mg/g SARS-CoV-2 RNA (FAITH) (NEGATIVE) 08/15/20 08/15/20 08/15/20 Range/Units 12:12 12:12 12:12 WBC (5.0-10.0) 10^3/uL RBC (4.2-5.4) 10^6/uL Hgb (12.0-16.0) g/dL Hct (37.0-47.0) % MCV (80-100) fL MCH (27.0-34.0) pg MCHC (33.0-35.0) g/dL Plt Count (150-450) 10^3/uL Neut % (Auto) (42.2-75.2) % Lymph % (Auto) (20.5-50.1) % [place] % (Auto) (2-8) % Eos % (Auto) (1.0-3.0) % Baso % (Auto) (0.0-1.0) % Add Manual Diff Neutrophils % (Manual) (42-75) % Band Neutrophils % % Lymphocytes % (Manual) (20-50) % Monocytes % (Manual) (2-8) % Eosinophils % (Manual) (1-3) % D-Dimer, Quantitative (0-400) ng/mL Sodium (136-145) mmol/L Potassium (3.5-5.1) mmol/L Chloride (98-107) mmol/L Carbon Dioxide (21-32) mmol/L Anion Gap (7-13) mEq/L BUN (7-18) mg/dL Creatinine (0.55-1.02) mg/dL Est Cr Clr Drug Dosing mL/min Estimated GFR (MDRD) BUN/Creatinine Ratio (No establ ref range) Glucose (70-99) mg/dL Uric Acid 4.8 (2.6-6.0) mg/dL Calcium (8.5-10.1) mg/dL Magnesium (1.8-2.4) mg/dL Total Bilirubin (0.2-1.0) mg/dL AST (15-37) U/L ALT (14-59) U/L Alkaline Phosphatase (46-116) U/L Lactate Dehydrogenase 425 H (81-234) U/L Troponin I High Sens (<=51) pg/mL Total Protein (6.4-8.2) g/dL Albumin (3.4-5.0) g/dL Globulin Albumin/Globulin Ratio Lipase 43 L (73-393) U/L Urine Color (YELLOW) Urine Appearance (CLEAR) Urine pH (5.0-9.0) Ur Specific [place] (1.005-1.030) Urine Protein (NEGATIVE) Urine Glucose (UA) (NEGATIVE) Urine Ketones (NEGATIVE) Urine Occult Blood (NEGATIVE) Urine Nitrite (NEGATIVE) Urine Bilirubin (NEGATIVE) Urine Urobilinogen (0.2-1.0) mg/dL Ur Leukocyte Esterase (NEGATIVE) Urine RBC /HPF Urine WBC (0-5/HPF) /HPF Ur Epithelial Cells (NOT SEEN) /HPF Urine Bacteria (0-FEW/HPF) /HPF Urine Mucus (NOT SEEN) /LPF Ur Random Creatinine (No establ ref range) mg/dL U Random Total Protein (0.0-11.9) mg/dL Protein/Creatinin Ratio (<150.0) mg/g SARS-CoV-2 RNA (FAITH) (NEGATIVE) 08/15/20 08/15/20 08/15/20 Range/Units 12:12 12:24 12:24 WBC (5.0-10.0) 10^3/uL RBC (4.2-5.4) 10^6/uL Hgb (12.0-16.0) g/dL Hct (37.0-47.0) % MCV (80-100) fL MCH (27.0-34.0) pg MCHC (33.0-35.0) g/dL Plt Count (150-450) 10^3/uL Neut % (Auto) (42.2-75.2) % Lymph % (Auto) (20.5-50.1) % [place] % (Auto) (2-8) % Eos % (Auto) (1.0-3.0) % Baso % (Auto) (0.0-1.0) % Add Manual Diff Neutrophils % (Manual) (42-75) % Band Neutrophils % % Lymphocytes % (Manual) (20-50) % Monocytes % (Manual) (2-8) % Eosinophils % (Manual) (1-3) % D-Dimer, Quantitative (0-400) ng/mL Sodium (136-145) mmol/L Potassium (3.5-5.1) mmol/L Chloride (98-107) mmol/L Carbon Dioxide (21-32) mmol/L Anion Gap (7-13) mEq/L BUN (7-18) mg/dL Creatinine (0.55-1.02) mg/dL Est Cr Clr Drug Dosing mL/min Estimated GFR (MDRD) BUN/Creatinine Ratio (No establ ref range) Glucose (70-99) mg/dL Uric Acid (2.6-6.0) mg/dL Calcium (8.5-10.1) mg/dL Magnesium 1.9 (1.8-2.4) mg/dL Total Bilirubin (0.2-1.0) mg/dL AST (15-37) U/L ALT (14-59) U/L Alkaline Phosphatase (46-116) U/L Lactate Dehydrogenase (81-234) U/L Troponin I High Sens (<=51) pg/mL Total Protein (6.4-8.2) g/dL Albumin (3.4-5.0) g/dL Globulin Albumin/Globulin Ratio Lipase (73-393) U/L Urine Color Yellow (YELLOW) Urine Appearance Slightly cloudy (CLEAR) Urine pH 6.0 (5.0-9.0) Ur Specific [place] 1.020 (1.005-1.030) Urine Protein 100 H (NEGATIVE) Urine Glucose (UA) Negative (NEGATIVE) Urine Ketones Negative (NEGATIVE) Urine Occult Blood Large H (NEGATIVE) Urine Nitrite Negative (NEGATIVE) Urine Bilirubin Negative (NEGATIVE) Urine Urobilinogen 0.2 (0.2-1.0) mg/dL Ur Leukocyte Esterase Small H (NEGATIVE) Urine RBC 5-10 H /HPF Urine WBC 5-10 H (0-5/HPF) /HPF Ur Epithelial Cells Few (NOT SEEN) /HPF Urine Bacteria Few (0-FEW/HPF) /HPF Urine Mucus Occasional (NOT SEEN) /LPF Ur Random Creatinine 87.14 (No establ ref range) mg/dL U Random Total Protein 48.1 H (0.0-11.9) mg/dL Protein/Creatinin Ratio 552.0 H (<150.0) mg/g SARS-CoV-2 RNA (FAITH) (NEGATIVE) 08/15/20 08/15/20 08/15/20 Range/Units 14:17 14:30 22:30 WBC (5.0-10.0) 10^3/uL RBC (4.2-5.4) 10^6/uL Hgb (12.0-16.0) g/dL Hct (37.0-47.0) % MCV (80-100) fL MCH (27.0-34.0) pg MCHC (33.0-35.0) g/dL Plt Count (150-450) 10^3/uL Neut % (Auto) (42.2-75.2) % Lymph % (Auto) (20.5-50.1) % [place] % (Auto) (2-8) % Eos % (Auto) (1.0-3.0) % Baso % (Auto) (0.0-1.0) % Add Manual Diff Neutrophils % (Manual) (42-75) % Band Neutrophils % % Lymphocytes % (Manual) (20-50) % Monocytes % (Manual) (2-8) % Eosinophils % (Manual) (1-3) % D-Dimer, Quantitative (0-400) ng/mL Sodium (136-145) mmol/L Potassium (3.5-5.1) mmol/L Chloride (98-107) mmol/L Carbon Dioxide (21-32) mmol/L Anion Gap (7-13) mEq/L BUN (7-18) mg/dL Creatinine (0.55-1.02) mg/dL Est Cr Clr Drug Dosing mL/min Estimated GFR (MDRD) BUN/Creatinine Ratio (No establ ref range) Glucose (70-99) mg/dL Uric Acid (2.6-6.0) mg/dL Calcium (8.5-10.1) mg/dL Magnesium 4.3 H (1.8-2.4) mg/dL Total Bilirubin (0.2-1.0) mg/dL AST (15-37) U/L ALT (14-59) U/L Alkaline Phosphatase (46-116) U/L Lactate Dehydrogenase (81-234) U/L Troponin I High Sens (<=51) pg/mL Total Protein (6.4-8.2) g/dL Albumin (3.4-5.0) g/dL Globulin Albumin/Globulin Ratio Lipase (73-393) U/L Urine Color (YELLOW) Urine Appearance (CLEAR) Urine pH (5.0-9.0) Ur Specific [place] (1.005-1.030) Urine Protein (NEGATIVE) Urine Glucose (UA) (NEGATIVE) Urine Ketones (NEGATIVE) Urine Occult Blood (NEGATIVE) Urine Nitrite (NEGATIVE) Urine Bilirubin (NEGATIVE) Urine Urobilinogen (0.2-1.0) mg/dL Ur Leukocyte Esterase (NEGATIVE) Urine RBC /HPF Urine WBC (0-5/HPF) /HPF Ur Epithelial Cells (NOT SEEN) /HPF Urine Bacteria (0-FEW/HPF) /HPF Urine Mucus (NOT SEEN) /LPF Ur Random Creatinine 39.11 (No establ ref range) mg/dL U Random Total Protein 12.6 H (0.0-11.9) mg/dL Protein/Creatinin Ratio 322.2 H (<150.0) mg/g SARS-CoV-2 RNA (FAITH) Negative (NEGATIVE) 08/16/20 08/16/20 Range/Units 06:23 06:23 WBC 11.4 H (5.0-10.0) 10^3/uL RBC 3.35 L (4.2-5.4) 10^6/uL Hgb 10.4 L (12.0-16.0) g/dL Hct 32.5 L (37.0-47.0) % MCV 97.0 (80-100) fL MCH 31.0 (27.0-34.0) pg MCHC 32.0 L (33.0-35.0) g/dL Plt Count 259 (150-450) 10^3/uL Neut % (Auto) 74.2 (42.2-75.2) % Lymph % (Auto) 15.3 L (20.5-50.1) % [place] % (Auto) 7.2 (2-8) % Eos % (Auto) 3.1 H (1.0-3.0) % Baso % (Auto) 0.2 (0.0-1.0) % Add Manual Diff Neutrophils % (Manual) (42-75) % Band Neutrophils % % Lymphocytes % (Manual) (20-50) % Monocytes % (Manual) (2-8) % Eosinophils % (Manual) (1-3) % D-Dimer, Quantitative (0-400) ng/mL Sodium 142 (136-145) mmol/L Potassium 3.6 (3.5-5.1) mmol/L Chloride 108 H (98-107) mmol/L Carbon Dioxide 25 (21-32) mmol/L Anion Gap 12.6 (7-13) mEq/L BUN 8 (7-18) mg/dL Creatinine 0.76 (0.55-1.02) mg/dL Est Cr Clr Drug Dosing 94.73 mL/min Estimated GFR (MDRD) > 60 BUN/Creatinine Ratio 10.5 (No establ ref range) Glucose 106 H (70-99) mg/dL Uric Acid (2.6-6.0) mg/dL Calcium 7.2 L (8.5-10.1) mg/dL Magnesium 5.4 H (1.8-2.4) mg/dL Total Bilirubin 0.2 (0.2-1.0) mg/dL AST 43 H (15-37) U/L ALT 55 (14-59) U/L Alkaline Phosphatase 111 (46-116) U/L Lactate Dehydrogenase (81-234) U/L Troponin I High Sens (<=51) pg/mL Total Protein 5.6 L (6.4-8.2) g/dL Albumin 2.2 L (3.4-5.0) g/dL Globulin 3.4 Albumin/Globulin Ratio 0.65 Lipase (73-393) U/L Urine Color (YELLOW) Urine Appearance (CLEAR) Urine pH (5.0-9.0) Ur Specific [place] (1.005-1.030) Urine Protein (NEGATIVE) Urine Glucose (UA) (NEGATIVE) Urine Ketones (NEGATIVE) Urine Occult Blood (NEGATIVE) Urine Nitrite (NEGATIVE) Urine Bilirubin (NEGATIVE) Urine Urobilinogen (0.2-1.0) mg/dL Ur Leukocyte Esterase (NEGATIVE) Urine RBC /HPF Urine WBC (0-5/HPF) /HPF Ur Epithelial Cells (NOT SEEN) /HPF Urine Bacteria (0-FEW/HPF) /HPF Urine Mucus (NOT SEEN) /LPF Ur Random Creatinine (No establ ref range) mg/dL U Random Total Protein (0.0-11.9) mg/dL Protein/Creatinin Ratio (<150.0) mg/g SARS-CoV-2 RNA (FAITH) (NEGATIVE) Result Diagrams: 08/16/20 06:23 08/16/20 06:23 Nathanael Results Last 24 hrs: Microbiology 08/15/20 12:24 Urine Culture - Preliminary Urine, Voided Sepsis Event Note - Evaluation Sepsis Screening Result: No Definite Risk - Focused Exam Vital Signs: Vital Signs Temp Pulse Resp BP Pulse Ox Pulse Ox 08/16/20 06:00 98.2 F 81 18 145/79 H 98 08/16/20 05:00 98 F 82 18 149/88 H 98 08/16/20 04:00 98.2 F 86 16 152/91 H 97 08/16/20 03:00 97.9 F 81 152/89 H 98 08/16/20 02:45 81 18 157/92 H 08/16/20 02:00 98 F 81 18 158/98 H 98 08/16/20 01:00 97.5 F 91 18 165/87 H 97 08/16/20 00:00 97.9 F 96 20 162/96 H 95 08/15/20 23:00 97.7 F 90 20 151/91 H 96 08/15/20 22:00 98 F 83 19 151/87 H 97 08/15/20 21:00 98.2 F 86 18 148/80 H 95 08/15/20 20:00 98 F 81 20 154/84 H 95 - Problem List & Annotations (1) Pre-eclampsia, severe, condition SNOMED Code(s): 08685303, 147015020, [id number] Code(s): O14.15 - SEVERE PRE-ECLAMPSIA, COMPLICATING THE PUERPERIUM Status: Acute Current Visit: Yes - Problem List Review Problem List Initiated/Reviewed/Updated: Yes - My Orders Last 24 Hours: My Active Orders 08/15/20 18:32 Acetaminophen [TylenoL] 650 mg PO Q4H PRN Simethicone 80 mg PO Q6H PRN 08/15/20 18:34 Code Status [Resuscitation Status] Routine - Plan Plan:: Severe Pre-eclampsia -Mg Sulfate per protocol -Monitor BPs -Continuing to run 150s/80s -Will start oral labetalol 100 mg BID today -IV labetalol as needed for BP control if above 160/110 -Monitor Mg levels -Neuro checks -Seizure precautions -Tylenol for headache -Simethicone for gas pain -General diet -Hgb, WBC, and Cr. stable. -Will re-assess this afternoon, possible discharge later today if patient feeling better and BP controlled with oral labetalol. <Edd Tapia - Last Filed: 08/17/20 07:32> - Patient Data Vitals - Most Recent: Last Vital Signs Temp 98.4 F 08/17/20 03:00 Pulse 79 08/17/20 03:00 Resp 22 H 08/17/20 03:00 BP 147/78 H 08/17/20 03:00 Pulse Ox 92 L 08/17/20 03:00 I&O - Last 24 Hours: Intake & Output 08/16/20 08/17/20 08/17/20 22:59 06:59 14:59 Intake Total 620 Output Total 3975 Balance -3355 Lab Results Last 24 Hours: Laboratory Results - last 24 hr 08/16/20 08/16/20 08/16/20 Range/Units 14:20 21:20 21:20 WBC 13.0 H (5.0-10.0) 10^3/uL RBC 3.57 L (4.2-5.4) 10^6/uL Hgb 11.2 L (12.0-16.0) g/dL Hct 34.1 L (37.0-47.0) % MCV 95.5 (80-100) fL MCH 31.4 (27.0-34.0) pg MCHC 32.8 L (33.0-35.0) g/dL Plt Count 279 (150-450) 10^3/uL Neut % (Auto) 81.9 H (42.2-75.2) % Lymph % (Auto) 10.6 L (20.5-50.1) % [place] % (Auto) 5.6 (2-8) % Eos % (Auto) 1.7 (1.0-3.0) % Baso % (Auto) 0.2 (0.0-1.0) % Add Manual Diff Yes Neutrophils % (Manual) 77 H (42-75) % Band Neutrophils % 5 % Lymphocytes % (Manual) 15 L (20-50) % Atypical Lymphs % 0 % Monocytes % (Manual) 3 (2-8) % PT 9.5 (9.0-12.0) SEC INR 0.9 (0.9-1.2) Sodium (136-145) mmol/L Potassium (3.5-5.1) mmol/L Chloride (98-107) mmol/L Carbon Dioxide (21-32) mmol/L Anion Gap (7-13) mEq/L BUN (7-18) mg/dL Creatinine (0.55-1.02) mg/dL Est Cr Clr Drug Dosing mL/min Estimated GFR (MDRD) BUN/Creatinine Ratio (No establ ref range) Glucose (70-99) mg/dL Calcium (8.5-10.1) mg/dL Magnesium 5.9 H (1.8-2.4) mg/dL Total Bilirubin (0.2-1.0) mg/dL AST (15-37) U/L ALT (14-59) U/L Alkaline Phosphatase (46-116) U/L Troponin I High Sens (<=51) pg/mL B-Natriuretic Peptide (0-100) pg/ml Total Protein (6.4-8.2) g/dL Albumin (3.4-5.0) g/dL Globulin Albumin/Globulin Ratio 08/16/20 08/17/20 08/17/20 Range/Units 21:20 05:35 05:35 WBC 10.5 H (5.0-10.0) 10^3/uL RBC 3.31 L (4.2-5.4) 10^6/uL Hgb 10.3 L (12.0-16.0) g/dL Hct 32.0 L (37.0-47.0) % MCV 96.7 (80-100) fL MCH 31.1 (27.0-34.0) pg MCHC 32.2 L (33.0-35.0) g/dL Plt Count 284 (150-450) 10^3/uL Neut % (Auto) 70.6 (42.2-75.2) % Lymph % (Auto) 18.6 L (20.5-50.1) % [place] % (Auto) 8.4 H (2-8) % Eos % (Auto) 2.2 (1.0-3.0) % Baso % (Auto) 0.2 (0.0-1.0) % Add Manual Diff Neutrophils % (Manual) (42-75) % Band Neutrophils % % Lymphocytes % (Manual) (20-50) % Atypical Lymphs % % Monocytes % (Manual) (2-8) % PT (9.0-12.0) SEC INR (0.9-1.2) Sodium 140 142 (136-145) mmol/L Potassium 3.7 3.5 (3.5-5.1) mmol/L Chloride 105 105 (98-107) mmol/L Carbon Dioxide 25 25 (21-32) mmol/L Anion Gap 13.7 H 15.5 H (7-13) mEq/L BUN 8 10 (7-18) mg/dL Creatinine 0.88 0.86 (0.55-1.02) mg/dL Est Cr Clr Drug Dosing 81.81 83.71 mL/min Estimated GFR (MDRD) > 60 > 60 BUN/Creatinine Ratio 9.1 11.6 (No establ ref range) Glucose 113 H 96 (70-99) mg/dL Calcium 7.0 L 6.8 L (8.5-10.1) mg/dL Magnesium (1.8-2.4) mg/dL Total Bilirubin 0.3 0.3 (0.2-1.0) mg/dL AST 39 H 31 (15-37) U/L ALT 57 47 (14-59) U/L Alkaline Phosphatase 122 H 107 (46-116) U/L Troponin I High Sens 22 (<=51) pg/mL B-Natriuretic Peptide 577 H (0-100) pg/ml Total Protein 6.1 L 5.6 L (6.4-8.2) g/dL Albumin 2.3 L 2.0 L (3.4-5.0) g/dL Globulin 3.8 3.6 Albumin/Globulin Ratio 0.61 0.56 Nathanael Results Last 24 Hours: Microbiology 08/15/20 12:24 Urine Culture - Final Urine, Voided Med Orders - Current: Current Medications Acetaminophen (Acetaminophen 325 Mg Tab) 650 mg PO Q4H PRN PRN Reason: Pain Last Admin: 08/17/20 02:55 Dose: 650 mg Documented by: Calcium Gluconate (Calcium Gluconate 10% 1 Gm/10 Ml Sdv) 1 gm IV ASDIRECTED PRN PRN Reason: respiratory distress Diphenhydramine HCl (Diphenhydramine 25 Mg Tab) 25 mg PO BEDTIME PRN PRN Reason: Insomnia Magnesium Sulfate (Magnesium Sulfate In Water 20 Gm/500 Ml) 20 gm in 500 mls @ 50 mls/hr IV ASDIRECTED TEENA Last Admin: 08/16/20 15:00 Dose: 50 mls/hr Documented by: Labetalol HCl (Labetalol 100 Mg Tab) 200 mg PO BID [facility] Last Admin: 08/16/20 22:04 Dose: 200 mg Documented by: Melatonin (Melatonin 3 Mg Tab) 3 mg PO BEDTIME PRN PRN Reason: Insomnia Last Admin: 08/16/20 22:43 Dose: 3 mg Documented by: Simethicone (Simethicone 80 Mg Tab.Chew) 80 mg PO Q6H PRN PRN Reason: Abdominal Pain Last Admin: 08/17/20 02:55 Dose: 80 mg Documented by: Sodium Chloride (Sodium Chloride 0.9% 10 Ml Syringe) 10 ml FLUSH ASDIRECTED PRN PRN Reason: Keep Vein Open Last Admin: 08/15/20 13:54 Dose: 10 ml Documented by: Discontinued Medications Furosemide (Furosemide 20 Mg/2 Ml Vial) 20 mg IVPUSH ONETIME ONE Stop: 08/16/20 22:31 Last Admin: 08/16/20 22:43 Dose: 20 mg Documented by: Magnesium Sulfate 4 gm/ Premix 100 mls @ 300 mls/hr IV BOLUS ONE Stop: 08/15/20 14:36 Last Admin: 08/15/20 16:07 Dose: 300 mls/hr Documented by: Iopamidol (Iopamidol 755 Mg/Ml 100 Ml Bottle) 100 ml IVPUSH ONETIME ONE Stop: 08/15/20 12:43 Last Admin: 08/15/20 13:03 Dose: 80 ml Documented by: Labetalol HCl (Labetalol 20 Mg/4 Ml Syringe) 20 mg IVPUSH ONETIME ONE Stop: 08/15/20 13:31 Last Admin: 08/15/20 13:50 Dose: 20 mg Documented by: Labetalol HCl (Labetalol 20 Mg/4 Ml Syringe) 20 mg IVPUSH ONETIME ONE Stop: 08/15/20 15:45 Last Admin: 08/15/20 16:03 Dose: 20 mg Documented by: Labetalol HCl (Labetalol 20 Mg/4 Ml Syringe) 10 mg IVPUSH ONETIME STA Stop: 08/16/20 02:09 Last Admin: 08/16/20 02:24 Dose: 10 mg Documented by: Labetalol HCl (Labetalol 100 Mg Tab) 100 mg PO BID TEENA Last Admin: 08/16/20 08:35 Dose: 100 mg Documented by: Sertraline HCl (Sertraline 50 Mg Tab) 50 mg PO ONETIME ONE Stop: 08/16/20 16:31 Last Admin: 08/16/20 17:00 Dose: 50 mg Documented by: - Patient Data Lab Results Last 24 hrs: Laboratory Results - last 24 hr 08/16/20 08/16/20 08/16/20 Range/Units 14:20 21:20 21:20 WBC 13.0 H (5.0-10.0) 10^3/uL RBC 3.57 L (4.2-5.4) 10^6/uL Hgb 11.2 L (12.0-16.0) g/dL Hct 34.1 L (37.0-47.0) % MCV 95.5 (80-100) fL MCH 31.4 (27.0-34.0) pg MCHC 32.8 L (33.0-35.0) g/dL Plt Count 279 (150-450) 10^3/uL Neut % (Auto) 81.9 H (42.2-75.2) % Lymph % (Auto) 10.6 L (20.5-50.1) % [place] % (Auto) 5.6 (2-8) % Eos % (Auto) 1.7 (1.0-3.0) % Baso % (Auto) 0.2 (0.0-1.0) % Add Manual Diff Yes Neutrophils % (Manual) 77 H (42-75) % Band Neutrophils % 5 % Lymphocytes % (Manual) 15 L (20-50) % Atypical Lymphs % 0 % Monocytes % (Manual) 3 (2-8) % PT 9.5 (9.0-12.0) SEC INR 0.9 (0.9-1.2) Sodium (136-145) mmol/L Potassium (3.5-5.1) mmol/L Chloride (98-107) mmol/L Carbon Dioxide (21-32) mmol/L Anion Gap (7-13) mEq/L BUN (7-18) mg/dL Creatinine (0.55-1.02) mg/dL Est Cr Clr Drug Dosing mL/min Estimated GFR (MDRD) BUN/Creatinine Ratio (No establ ref range) Glucose (70-99) mg/dL Calcium (8.5-10.1) mg/dL Magnesium 5.9 H (1.8-2.4) mg/dL Total Bilirubin (0.2-1.0) mg/dL AST (15-37) U/L ALT (14-59) U/L Alkaline Phosphatase (46-116) U/L Troponin I High Sens (<=51) pg/mL B-Natriuretic Peptide (0-100) pg/ml Total Protein (6.4-8.2) g/dL Albumin (3.4-5.0) g/dL Globulin Albumin/Globulin Ratio 08/16/20 08/17/20 08/17/20 Range/Units 21:20 05:35 05:35 WBC 10.5 H (5.0-10.0) 10^3/uL RBC 3.31 L (4.2-5.4) 10^6/uL Hgb 10.3 L (12.0-16.0) g/dL Hct 32.0 L (37.0-47.0) % MCV 96.7 (80-100) fL MCH 31.1 (27.0-34.0) pg MCHC 32.2 L (33.0-35.0) g/dL Plt Count 284 (150-450) 10^3/uL Neut % (Auto) 70.6 (42.2-75.2) % Lymph % (Auto) 18.6 L (20.5-50.1) % [place] % (Auto) 8.4 H (2-8) % Eos % (Auto) 2.2 (1.0-3.0) % Baso % (Auto) 0.2 (0.0-1.0) % Add Manual Diff Neutrophils % (Manual) (42-75) % Band Neutrophils % % Lymphocytes % (Manual) (20-50) % Atypical Lymphs % % Monocytes % (Manual) (2-8) % PT (9.0-12.0) SEC INR (0.9-1.2) Sodium 140 142 (136-145) mmol/L Potassium 3.7 3.5 (3.5-5.1) mmol/L Chloride 105 105 (98-107) mmol/L Carbon Dioxide 25 25 (21-32) mmol/L Anion Gap 13.7 H 15.5 H (7-13) mEq/L BUN 8 10 (7-18) mg/dL Creatinine 0.88 0.86 (0.55-1.02) mg/dL Est Cr Clr Drug Dosing 81.81 83.71 mL/min Estimated GFR (MDRD) > 60 > 60 BUN/Creatinine Ratio 9.1 11.6 (No establ ref range) Glucose 113 H 96 (70-99) mg/dL Calcium 7.0 L 6.8 L (8.5-10.1) mg/dL Magnesium (1.8-2.4) mg/dL Total Bilirubin 0.3 0.3 (0.2-1.0) mg/dL AST 39 H 31 (15-37) U/L ALT 57 47 (14-59) U/L Alkaline Phosphatase 122 H 107 (46-116) U/L Troponin I High Sens 22 (<=51) pg/mL B-Natriuretic Peptide 577 H (0-100) pg/ml Total Protein 6.1 L 5.6 L (6.4-8.2) g/dL Albumin 2.3 L 2.0 L (3.4-5.0) g/dL Globulin 3.8 3.6 Albumin/Globulin Ratio 0.61 0.56 Result Diagrams: 08/17/20 05:35 08/17/20 05:35 Nathanael Results Last 24 hrs: Microbiology 08/15/20 12:24 Urine Culture - Final Urine, Voided Sepsis Event Note - Focused Exam Vital Signs: Vital Signs Temp Pulse Pulse Resp BP BP Pulse Ox 08/17/20 03:00 98.4 F 79 22 H 147/78 H 92 L 08/16/20 23:40 98.1 F 83 22 H 147/86 H 92 L 08/16/20 22:04 87 161/100 H - Plan Plan:: Seen with resident. Patient was personally seen and examined. I reviewed the noted scribed on my behalf and necessary changes have been made to reflect my opinion on the history, exam, assessment, and plan. Dr. Hanson was called by resident for advice and recommendations and agrees with current treatment plan and workup.
[2020-08-16] MEDS ORDERED: Labetalol 100 MG Tab PO SCH (09:00)
[2020-08-16] MEDS: Simethicone 80 MG Tab.Chew PO PRN ×2 (14:16→17:39)
[2020-08-16] MEDS ORDERED: Sertraline 50 MG Tab PO ONE (16:30)
[2020-08-16] MEDS ORDERED: diphenhydrAMINE 25 MG Tab PO PRN (20:40)
[2020-08-16] MEDS ORDERED: Melatonin 3 MG Tab PO PRN (20:41)
--- NOTE | 2020-08-16 20:48 | PCM.PN ---
<Alberto Tejada - Last Filed: 08/16/20 22:33> - General Info Date of Service: 08/16/20 Admission Dx/Problem (Free Text): Admission Diagnosis/Problem Admission Diagnosis/Problem complications pre-eclampsia Subjective Update: Patient is resting comfortably in bed in no acute distress. She is still having mild headache and SOB, this is unchanged from earlier. She got out of bed this evening and felt weak with some pain in her lower legs bilaterally. Tolerating general diet. She does not feeling safe going home tonight. She has no other complaints. Functional Status: Reports: Pain Controlled, Tolerating Diet, Ambulating - Review of Systems General: Reports: Weakness HEENT: Reports: Headaches Pulmonary: Reports: Shortness of Breath Cardiovascular: Reports: No Symptoms, Edema Gastrointestinal: Reports: Abdominal Pain Genitourinary: Reports: No Symptoms Musculoskeletal: Reports: Back Pain Skin: Reports: No Symptoms Neurological: Reports: No Symptoms - Patient Data Vitals - Most Recent: Last Vital Signs Temp 98.1 F 08/16/20 18:00 Pulse 94 08/16/20 18:00 Resp 24 H 08/16/20 18:00 BP 157/94 H 08/16/20 18:00 Pulse Ox 94 L 08/16/20 08:23 Weight - Most Recent: 72.212 kg I&O - Last 24 Hours: Intake & Output 08/16/20 08/16/20 08/16/20 06:59 14:59 22:59 Intake Total 500 590 120 Output Total 3950 350 3575 Balance -3450 240 -3455 Lab Results Last 24 Hours: Laboratory Results - last 24 hr 08/15/20 08/16/20 08/16/20 Range/Units 22:30 06:23 06:23 WBC 11.4 H (5.0-10.0) 10^3/uL RBC 3.35 L (4.2-5.4) 10^6/uL Hgb 10.4 L (12.0-16.0) g/dL Hct 32.5 L (37.0-47.0) % MCV 97.0 (80-100) fL MCH 31.0 (27.0-34.0) pg MCHC 32.0 L (33.0-35.0) g/dL Plt Count 259 (150-450) 10^3/uL Neut % (Auto) 74.2 (42.2-75.2) % Lymph % (Auto) 15.3 L (20.5-50.1) % [place] % (Auto) 7.2 (2-8) % Eos % (Auto) 3.1 H (1.0-3.0) % Baso % (Auto) 0.2 (0.0-1.0) % Sodium 142 (136-145) mmol/L Potassium 3.6 (3.5-5.1) mmol/L Chloride 108 H (98-107) mmol/L Carbon Dioxide 25 (21-32) mmol/L Anion Gap 12.6 (7-13) mEq/L BUN 8 (7-18) mg/dL Creatinine 0.76 (0.55-1.02) mg/dL Est Cr Clr Drug Dosing 94.73 mL/min Estimated GFR (MDRD) > 60 BUN/Creatinine Ratio 10.5 (No establ ref range) Glucose 106 H (70-99) mg/dL Calcium 7.2 L (8.5-10.1) mg/dL Magnesium 4.3 H 5.4 H (1.8-2.4) mg/dL Total Bilirubin 0.2 (0.2-1.0) mg/dL AST 43 H (15-37) U/L ALT 55 (14-59) U/L Alkaline Phosphatase 111 (46-116) U/L Total Protein 5.6 L (6.4-8.2) g/dL Albumin 2.2 L (3.4-5.0) g/dL Globulin 3.4 Albumin/Globulin Ratio 0.65 // Range/Units 14:20 WBC (5.0-10.0) 10^3/uL RBC (4.2-5.4) 10^6/uL Hgb (12.0-16.0) g/dL Hct (37.0-47.0) % MCV (80-100) fL MCH (27.0-34.0) pg MCHC (33.0-35.0) g/dL Plt Count (150-450) 10^3/uL Neut % (Auto) (42.2-75.2) % Lymph % (Auto) (20.5-50.1) % [place] % (Auto) (2-8) % Eos % (Auto) (1.0-3.0) % Baso % (Auto) (0.0-1.0) % Sodium (136-145) mmol/L Potassium (3.5-5.1) mmol/L Chloride (98-107) mmol/L Carbon Dioxide (21-32) mmol/L Anion Gap (7-13) mEq/L BUN (7-18) mg/dL Creatinine (0.55-1.02) mg/dL Est Cr Clr Drug Dosing mL/min Estimated GFR (MDRD) BUN/Creatinine Ratio (No establ ref range) Glucose (70-99) mg/dL Calcium (8.5-10.1) mg/dL Magnesium 5.9 H (1.8-2.4) mg/dL Total Bilirubin (0.2-1.0) mg/dL AST (15-37) U/L ALT (14-59) U/L Alkaline Phosphatase (46-116) U/L Total Protein (6.4-8.2) g/dL Albumin (3.4-5.0) g/dL Globulin Albumin/Globulin Ratio Nathanael Results Last 24 Hours: Microbiology 08/15/20 12:24 Urine Culture - Preliminary Urine, Voided Med Orders - Current: Current Medications Acetaminophen (Acetaminophen 325 Mg Tab) 650 mg PO Q4H PRN PRN Reason: Pain Last Admin: 08/16/20 18:50 Dose: 650 mg Documented by: Calcium Gluconate (Calcium Gluconate 10% 1 Gm/10 Ml Sdv) 1 gm IV ASDIRECTED PRN PRN Reason: respiratory distress Diphenhydramine HCl (Diphenhydramine 25 Mg Tab) 25 mg PO BEDTIME PRN PRN Reason: Insomnia Magnesium Sulfate (Magnesium Sulfate In Water 20 Gm/500 Ml) 20 gm in 500 mls @ 50 mls/hr IV ASDIRECTED TEENA Last Admin: 08/16/20 15:00 Dose: 50 mls/hr Documented by: Labetalol HCl (Labetalol 100 Mg Tab) 200 mg PO BID TEENA Melatonin (Melatonin 3 Mg Tab) 3 mg PO BEDTIME PRN PRN Reason: Insomnia Simethicone (Simethicone 80 Mg Tab.Chew) 80 mg PO Q6H PRN PRN Reason: Abdominal Pain Last Admin: 08/16/20 17:39 Dose: 80 mg Documented by: Sodium Chloride (Sodium Chloride 0.9% 10 Ml Syringe) 10 ml FLUSH ASDIRECTED PRN PRN Reason: Keep Vein Open Last Admin: 08/15/20 13:54 Dose: 10 ml Documented by: Discontinued Medications Magnesium Sulfate 4 gm/ Premix 100 mls @ 300 mls/hr IV BOLUS ONE Stop: 08/15/20 14:36 Last Admin: 08/15/20 16:07 Dose: 300 mls/hr Documented by: Iopamidol (Iopamidol 755 Mg/Ml 100 Ml Bottle) 100 ml IVPUSH ONETIME ONE Stop: 08/15/20 12:43 Last Admin: 08/15/20 13:03 Dose: 80 ml Documented by: Labetalol HCl (Labetalol 20 Mg/4 Ml Syringe) 20 mg IVPUSH ONETIME ONE Stop: 08/15/20 13:31 Last Admin: 08/15/20 13:50 Dose: 20 mg Documented by: Labetalol HCl (Labetalol 20 Mg/4 Ml Syringe) 20 mg IVPUSH ONETIME ONE Stop: 08/15/20 15:45 Last Admin: 08/15/20 16:03 Dose: 20 mg Documented by: Labetalol HCl (Labetalol 20 Mg/4 Ml Syringe) 10 mg IVPUSH ONETIME STA Stop: 08/16/20 02:09 Last Admin: 08/16/20 02:24 Dose: 10 mg Documented by: Labetalol HCl (Labetalol 100 Mg Tab) 100 mg PO BID TEENA Last Admin: 08/16/20 08:35 Dose: 100 mg Documented by: Sertraline HCl (Sertraline 50 Mg Tab) 50 mg PO ONETIME ONE Stop: 08/16/20 16:31 Last Admin: 08/16/20 17:00 Dose: 50 mg Documented by: - Exam General: Alert, Oriented, No Acute Distress Neck: Supple Lungs: Clear to Auscultation, Normal Respiratory Effort Cardiovascular: Regular Rate, Regular Rhythm GI/Abdominal Exam: Normal Bowel Sounds, Soft, Non-Tender, No Organomegaly, No Distention, No Abnormal Bruit, No Mass, Pelvis Stable Extremities: Normal Inspection, Normal Range of Motion, Normal Capillary Refill, Pedal Edema Skin: Warm, Dry, Intact - Patient Data Lab Results Last 24 hrs: Laboratory Results - last 24 hr 08/15/20 08/16/20 08/16/20 Range/Units 22:30 06:23 06:23 WBC 11.4 H (5.0-10.0) 10^3/uL RBC 3.35 L (4.2-5.4) 10^6/uL Hgb 10.4 L (12.0-16.0) g/dL Hct 32.5 L (37.0-47.0) % MCV 97.0 (80-100) fL MCH 31.0 (27.0-34.0) pg MCHC 32.0 L (33.0-35.0) g/dL Plt Count 259 (150-450) 10^3/uL Neut % (Auto) 74.2 (42.2-75.2) % Lymph % (Auto) 15.3 L (20.5-50.1) % [place] % (Auto) 7.2 (2-8) % Eos % (Auto) 3.1 H (1.0-3.0) % Baso % (Auto) 0.2 (0.0-1.0) % Sodium 142 (136-145) mmol/L Potassium 3.6 (3.5-5.1) mmol/L Chloride 108 H (98-107) mmol/L Carbon Dioxide 25 (21-32) mmol/L Anion Gap 12.6 (7-13) mEq/L BUN 8 (7-18) mg/dL Creatinine 0.76 (0.55-1.02) mg/dL Est Cr Clr Drug Dosing 94.73 mL/min Estimated GFR (MDRD) > 60 BUN/Creatinine Ratio 10.5 (No establ ref range) Glucose 106 H (70-99) mg/dL Calcium 7.2 L (8.5-10.1) mg/dL Magnesium 4.3 H 5.4 H (1.8-2.4) mg/dL Total Bilirubin 0.2 (0.2-1.0) mg/dL AST 43 H (15-37) U/L ALT 55 (14-59) U/L Alkaline Phosphatase 111 (46-116) U/L Total Protein 5.6 L (6.4-8.2) g/dL Albumin 2.2 L (3.4-5.0) g/dL Globulin 3.4 Albumin/Globulin Ratio 0.65 08/16/20 Range/Units 14:20 WBC (5.0-10.0) 10^3/uL RBC (4.2-5.4) 10^6/uL Hgb (12.0-16.0) g/dL Hct (37.0-47.0) % MCV (80-100) fL MCH (27.0-34.0) pg MCHC (33.0-35.0) g/dL Plt Count (150-450) 10^3/uL Neut % (Auto) (42.2-75.2) % Lymph % (Auto) (20.5-50.1) % [place] % (Auto) (2-8) % Eos % (Auto) (1.0-3.0) % Baso % (Auto) (0.0-1.0) % Sodium (136-145) mmol/L Potassium (3.5-5.1) mmol/L Chloride (98-107) mmol/L Carbon Dioxide (21-32) mmol/L Anion Gap (7-13) mEq/L BUN (7-18) mg/dL Creatinine (0.55-1.02) mg/dL Est Cr Clr Drug Dosing mL/min Estimated GFR (MDRD) BUN/Creatinine Ratio (No establ ref range) Glucose (70-99) mg/dL Calcium (8.5-10.1) mg/dL Magnesium 5.9 H (1.8-2.4) mg/dL Total Bilirubin (0.2-1.0) mg/dL AST (15-37) U/L ALT (14-59) U/L Alkaline Phosphatase (46-116) U/L Total Protein (6.4-8.2) g/dL Albumin (3.4-5.0) g/dL Globulin Albumin/Globulin Ratio Result Diagrams: 08/16/20 21:20 08/16/20 21:20 Nathanael Results Last 24 hrs: Microbiology 08/15/20 12:24 Urine Culture - Preliminary Urine, Voided Sepsis Event Note - Evaluation Sepsis Screening Result: No Definite Risk - Focused Exam Vital Signs: Vital Signs Temp Pulse Pulse Resp BP 08/16/20 18:00 98.1 F 94 24 H 157/94 H 08/16/20 17:00 98.1 F 94 18 156/95 H 08/16/20 16:00 97.6 F 91 20 146/91 H 08/16/20 15:00 97.5 F 86 21 H 141/76 H 08/16/20 14:00 97.6 F 91 90 19 164/89 H 08/16/20 13:17 92 155/94 H 08/16/20 13:00 92 20 155/94 H 08/16/20 12:00 86 86 22 H 156/91 H 08/16/20 11:03 80 151/90 H 08/16/20 11:00 80 18 151/90 H 08/16/20 10:16 81 140/73 08/16/20 10:00 97.6 F 81 82 20 140/73 08/16/20 09:00 98.0 F 82 81 20 158/96 H - Problem List & Annotations (1) Pre-eclampsia, severe, condition SNOMED Code(s): 21912233, 631730412, 538685524 Code(s): O14.15 - SEVERE PRE-ECLAMPSIA, COMPLICATING THE PUERPERIUM Status: Acute Current Visit: Yes - Problem List Review Problem List Initiated/Reviewed/Updated: Yes - My Orders Last 24 Hours: My Active Orders 08/16/20 Breakfast General [Regular Diet] [DIET] 08/16/20 20:38 Intake and Output Strict [RC] ASDIRECTED 08/16/20 20:39 Chest 1V Frontal [CR] Stat 08/16/20 20:40 diphenhydrAMINE [Benadryl] 25 mg PO BEDTIME PRN 08/16/20 20:41 Melatonin 3 mg PO BEDTIME PRN 08/16/20 21:00 Labetalol [Normodyne] 200 mg PO BID 08/17/20 06:00 CBC WITH AUTO DIFF [HEME] Routine CMP [COMPREHENSIVE METABOLIC PN,CMP] [CHEM] Routine - Plan Plan:: Severe Pre-eclampsia -Mg Sulfate per protocol - Stopped 08/16 at 1700 (24hrs total) -Monitor BPs -Continuing to run 150s/80s -Increased oral labetalol to 200 mg BID starting this evening -IV labetalol as needed for BP control if above 160/110 -Chest xray ordered -Check cbc, cmp, INR, PT, PTT, trop, BNP, EKG -Vitals Q4hrs -Seizure precautions -Tylenol for headache -Simethicone for gas pain -Benadryl and melatonin for insomnia -Heating pad for back pain -General diet -Repeat labs in AM, possible discharge then if feeling better and BP controlled. Addendum 08/16/20 0286 Patient reports significant SOB with ambulation. O2 sats around 94%. BNP 557. CBC, CMP stable. INR/PT/PTT normal. EKG NSR with prolonged AK interval. 2 view CXR shows no cardiomegaly, no pleural effusion, but concern for increased fluid status. Lungs sound clear, 2+ pitting edema. Suspect SOB and drop in O2 sat due to fluid overload. Will trial a small dose of 20 mg IV Lasix. Monitor Is&Os. Keep O2 sats above 90%. May need to consider transfer to [facility] if respiratory status declines. <Edd Tapia - Last Filed: 08/17/20 07:30> - Patient Data Vitals - Most Recent: Last Vital Signs Temp 98.4 F 08/17/20 03:00 Pulse 79 08/17/20 03:00 Resp 22 H 08/17/20 03:00 BP 147/78 H 08/17/20 03:00 Pulse Ox 92 L 08/17/20 03:00 I&O - Last 24 Hours: Intake & Output 08/16/20 08/17/20 08/17/20 22:59 06:59 14:59 Intake Total 620 Output Total 3975 Balance -3355 Lab Results Last 24 Hours: Laboratory Results - last 24 hr 08/16/20 08/16/20 08/16/20 Range/Units 14:20 21:20 21:20 WBC 13.0 H (5.0-10.0) 10^3/uL RBC 3.57 L (4.2-5.4) 10^6/uL Hgb 11.2 L (12.0-16.0) g/dL Hct 34.1 L (37.0-47.0) % MCV 95.5 (80-100) fL MCH 31.4 (27.0-34.0) pg MCHC 32.8 L (33.0-35.0) g/dL Plt Count 279 (150-450) 10^3/uL Neut % (Auto) 81.9 H (42.2-75.2) % Lymph % (Auto) 10.6 L (20.5-50.1) % [place] % (Auto) 5.6 (2-8) % Eos % (Auto) 1.7 (1.0-3.0) % Baso % (Auto) 0.2 (0.0-1.0) % Add Manual Diff Yes Neutrophils % (Manual) 77 H (42-75) % Band Neutrophils % 5 % Lymphocytes % (Manual) 15 L (20-50) % Atypical Lymphs % 0 % Monocytes % (Manual) 3 (2-8) % PT 9.5 (9.0-12.0) SEC INR 0.9 (0.9-1.2) Sodium (136-145) mmol/L Potassium (3.5-5.1) mmol/L Chloride (98-107) mmol/L Carbon Dioxide (21-32) mmol/L Anion Gap (7-13) mEq/L BUN (7-18) mg/dL Creatinine (0.55-1.02) mg/dL Est Cr Clr Drug Dosing mL/min Estimated GFR (MDRD) BUN/Creatinine Ratio (No establ ref range) Glucose (70-99) mg/dL Calcium (8.5-10.1) mg/dL Magnesium 5.9 H (1.8-2.4) mg/dL Total Bilirubin (0.2-1.0) mg/dL AST (15-37) U/L ALT (14-59) U/L Alkaline Phosphatase (46-116) U/L Troponin I High Sens (<=51) pg/mL B-Natriuretic Peptide (0-100) pg/ml Total Protein (6.4-8.2) g/dL Albumin (3.4-5.0) g/dL Globulin Albumin/Globulin Ratio 08/16/20 08/17/20 08/17/20 Range/Units 21:20 05:35 05:35 WBC 10.5 H (5.0-10.0) 10^3/uL RBC 3.31 L (4.2-5.4) 10^6/uL Hgb 10.3 L (12.0-16.0) g/dL Hct 32.0 L (37.0-47.0) % MCV 96.7 (80-100) fL MCH 31.1 (27.0-34.0) pg MCHC 32.2 L (33.0-35.0) g/dL Plt Count 284 (150-450) 10^3/uL Neut % (Auto) 70.6 (42.2-75.2) % Lymph % (Auto) 18.6 L (20.5-50.1) % [place] % (Auto) 8.4 H (2-8) % Eos % (Auto) 2.2 (1.0-3.0) % Baso % (Auto) 0.2 (0.0-1.0) % Add Manual Diff Neutrophils % (Manual) (42-75) % Band Neutrophils % % Lymphocytes % (Manual) (20-50) % Atypical Lymphs % % Monocytes % (Manual) (2-8) % PT (9.0-12.0) SEC INR (0.9-1.2) Sodium 140 142 (136-145) mmol/L Potassium 3.7 3.5 (3.5-5.1) mmol/L Chloride 105 105 (98-107) mmol/L Carbon Dioxide 25 25 (21-32) mmol/L Anion Gap 13.7 H 15.5 H (7-13) mEq/L BUN 8 10 (7-18) mg/dL Creatinine 0.88 0.86 (0.55-1.02) mg/dL Est Cr Clr Drug Dosing 81.81 83.71 mL/min Estimated GFR (MDRD) > 60 > 60 BUN/Creatinine Ratio 9.1 11.6 (No establ ref range) Glucose 113 H 96 (70-99) mg/dL Calcium 7.0 L 6.8 L (8.5-10.1) mg/dL Magnesium (1.8-2.4) mg/dL Total Bilirubin 0.3 0.3 (0.2-1.0) mg/dL AST 39 H 31 (15-37) U/L ALT 57 47 (14-59) U/L Alkaline Phosphatase 122 H 107 (46-116) U/L Troponin I High Sens 22 (<=51) pg/mL B-Natriuretic Peptide 577 H (0-100) pg/ml Total Protein 6.1 L 5.6 L (6.4-8.2) g/dL Albumin 2.3 L 2.0 L (3.4-5.0) g/dL Globulin 3.8 3.6 Albumin/Globulin Ratio 0.61 0.56 Nathanael Results Last 24 Hours: Microbiology 08/15/20 12:24 Urine Culture - Final Urine, Voided Med Orders - Current: Current Medications Acetaminophen (Acetaminophen 325 Mg Tab) 650 mg PO Q4H PRN PRN Reason: Pain Last Admin: 08/17/20 02:55 Dose: 650 mg Documented by: Calcium Gluconate (Calcium Gluconate 10% 1 Gm/10 Ml Sdv) 1 gm IV ASDIRECTED PRN PRN Reason: respiratory distress Diphenhydramine HCl (Diphenhydramine 25 Mg Tab) 25 mg PO BEDTIME PRN PRN Reason: Insomnia Magnesium Sulfate (Magnesium Sulfate In Water 20 Gm/500 Ml) 20 gm in 500 mls @ 50 mls/hr IV ASDIRECTED TEENA Last Admin: 08/16/20 15:00 Dose: 50 mls/hr Documented by: Labetalol HCl (Labetalol 100 Mg Tab) 200 mg PO BID [facility] Last Admin: 08/16/20 22:04 Dose: 200 mg Documented by: Melatonin (Melatonin 3 Mg Tab) 3 mg PO BEDTIME PRN PRN Reason: Insomnia Last Admin: 08/16/20 22:43 Dose: 3 mg Documented by: Simethicone (Simethicone 80 Mg Tab.Chew) 80 mg PO Q6H PRN PRN Reason: Abdominal Pain Last Admin: 08/17/20 02:55 Dose: 80 mg Documented by: Sodium Chloride (Sodium Chloride 0.9% 10 Ml Syringe) 10 ml FLUSH ASDIRECTED PRN PRN Reason: Keep Vein Open Last Admin: 08/15/20 13:54 Dose: 10 ml Documented by: Discontinued Medications Furosemide (Furosemide 20 Mg/2 Ml Vial) 20 mg IVPUSH ONETIME ONE Stop: 08/16/20 22:31 Last Admin: 08/16/20 22:43 Dose: 20 mg Documented by: Magnesium Sulfate 4 gm/ Premix 100 mls @ 300 mls/hr IV BOLUS ONE Stop: 08/15/20 14:36 Last Admin: 08/15/20 16:07 Dose: 300 mls/hr Documented by: Iopamidol (Iopamidol 755 Mg/Ml 100 Ml Bottle) 100 ml IVPUSH ONETIME ONE Stop: 08/15/20 12:43 Last Admin: 08/15/20 13:03 Dose: 80 ml Documented by: Labetalol HCl (Labetalol 20 Mg/4 Ml Syringe) 20 mg IVPUSH ONETIME ONE Stop: 08/15/20 13:31 Last Admin: 08/15/20 13:50 Dose: 20 mg Documented by: Labetalol HCl (Labetalol 20 Mg/4 Ml Syringe) 20 mg IVPUSH ONETIME ONE Stop: 08/15/20 15:45 Last Admin: 08/15/20 16:03 Dose: 20 mg Documented by: Labetalol HCl (Labetalol 20 Mg/4 Ml Syringe) 10 mg IVPUSH ONETIME STA Stop: 08/16/20 02:09 Last Admin: 08/16/20 02:24 Dose: 10 mg Documented by: Labetalol HCl (Labetalol 100 Mg Tab) 100 mg PO BID TEENA Last Admin: 08/16/20 08:35 Dose: 100 mg Documented by: Sertraline HCl (Sertraline 50 Mg Tab) 50 mg PO ONETIME ONE Stop: 08/16/20 16:31 Last Admin: 08/16/20 17:00 Dose: 50 mg Documented by: - Patient Data Lab Results Last 24 hrs: Laboratory Results - last 24 hr 08/16/20 08/16/20 08/16/20 Range/Units 14:20 21:20 21:20 WBC 13.0 H (5.0-10.0) 10^3/uL RBC 3.57 L (4.2-5.4) 10^6/uL Hgb 11.2 L (12.0-16.0) g/dL Hct 34.1 L (37.0-47.0) % MCV 95.5 (80-100) fL MCH 31.4 (27.0-34.0) pg MCHC 32.8 L (33.0-35.0) g/dL Plt Count 279 (150-450) 10^3/uL Neut % (Auto) 81.9 H (42.2-75.2) % Lymph % (Auto) 10.6 L (20.5-50.1) % [place] % (Auto) 5.6 (2-8) % Eos % (Auto) 1.7 (1.0-3.0) % Baso % (Auto) 0.2 (0.0-1.0) % Add Manual Diff Yes Neutrophils % (Manual) 77 H (42-75) % Band Neutrophils % 5 % Lymphocytes % (Manual) 15 L (20-50) % Atypical Lymphs % 0 % Monocytes % (Manual) 3 (2-8) % PT 9.5 (9.0-12.0) SEC INR 0.9 (0.9-1.2) Sodium (136-145) mmol/L Potassium (3.5-5.1) mmol/L Chloride (98-107) mmol/L Carbon Dioxide (21-32) mmol/L Anion Gap (7-13) mEq/L BUN (7-18) mg/dL Creatinine (0.55-1.02) mg/dL Est Cr Clr Drug Dosing mL/min Estimated GFR (MDRD) BUN/Creatinine Ratio (No establ ref range) Glucose (70-99) mg/dL Calcium (8.5-10.1) mg/dL Magnesium 5.9 H (1.8-2.4) mg/dL Total Bilirubin (0.2-1.0) mg/dL AST (15-37) U/L ALT (14-59) U/L Alkaline Phosphatase (46-116) U/L Troponin I High Sens (<=51) pg/mL B-Natriuretic Peptide (0-100) pg/ml Total Protein (6.4-8.2) g/dL Albumin (3.4-5.0) g/dL Globulin Albumin/Globulin Ratio 08/16/20 08/17/20 08/17/20 Range/Units 21:20 05:35 05:35 WBC 10.5 H (5.0-10.0) 10^3/uL RBC 3.31 L (4.2-5.4) 10^6/uL Hgb 10.3 L (12.0-16.0) g/dL Hct 32.0 L (37.0-47.0) % MCV 96.7 (80-100) fL MCH 31.1 (27.0-34.0) pg MCHC 32.2 L (33.0-35.0) g/dL Plt Count 284 (150-450) 10^3/uL Neut % (Auto) 70.6 (42.2-75.2) % Lymph % (Auto) 18.6 L (20.5-50.1) % [place] % (Auto) 8.4 H (2-8) % Eos % (Auto) 2.2 (1.0-3.0) % Baso % (Auto) 0.2 (0.0-1.0) % Add Manual Diff Neutrophils % (Manual) (42-75) % Band Neutrophils % % Lymphocytes % (Manual) (20-50) % Atypical Lymphs % % Monocytes % (Manual) (2-8) % PT (9.0-12.0) SEC INR (0.9-1.2) Sodium 140 142 (136-145) mmol/L Potassium 3.7 3.5 (3.5-5.1) mmol/L Chloride 105 105 (98-107) mmol/L Carbon Dioxide 25 25 (21-32) mmol/L Anion Gap 13.7 H 15.5 H (7-13) mEq/L BUN 8 10 (7-18) mg/dL Creatinine 0.88 0.86 (0.55-1.02) mg/dL Est Cr Clr Drug Dosing 81.81 83.71 mL/min Estimated GFR (MDRD) > 60 > 60 BUN/Creatinine Ratio 9.1 11.6 (No establ ref range) Glucose 113 H 96 (70-99) mg/dL Calcium 7.0 L 6.8 L (8.5-10.1) mg/dL Magnesium (1.8-2.4) mg/dL Total Bilirubin 0.3 0.3 (0.2-1.0) mg/dL AST 39 H 31 (15-37) U/L ALT 57 47 (14-59) U/L Alkaline Phosphatase 122 H 107 (46-116) U/L Troponin I High Sens 22 (<=51) pg/mL B-Natriuretic Peptide 577 H (0-100) pg/ml Total Protein 6.1 L 5.6 L (6.4-8.2) g/dL Albumin 2.3 L 2.0 L (3.4-5.0) g/dL Globulin 3.8 3.6 Albumin/Globulin Ratio 0.61 0.56 Result Diagrams: 08/17/20 05:35 08/17/20 05:35 Nathanael Results Last 24 hrs: Microbiology 08/15/20 12:24 Urine Culture - Final Urine, Voided Sepsis Event Note - Focused Exam Vital Signs: Vital Signs Temp Pulse Pulse Resp BP BP Pulse Ox 08/17/20 03:00 98.4 F 79 22 H 147/78 H 92 L 08/16/20 23:40 98.1 F 83 22 H 147/86 H 92 L 08/16/20 22:04 87 161/100 H - Plan Plan:: Seen with resident. Patient was personally seen and examined. I reviewed the noted scribed on my behalf and necessary changes have been made to reflect my opinion on the history, exam, assessment, and plan
[2020-08-16 21:46] LABS: ANION GAP 13.7 mEq/L (7-13); CHLORIDE,CL 105 mmol/L (98-107); SODIUM,NA 140 mmol/L (136-145)
--- NOTE | 2020-08-16 21:54 | CR ---
PROCEDURE INFORMATION: Exam: XR Chest Exam date and time: 08/16/2020 8:53 PM Age: 40 years old Clinical indication: Shortness of breath; Additional info: SOB, follow-up for pleural effusion TECHNIQUE: Imaging protocol: XR of the chest. Views: 1 view. COMPARISON: CT Chest w Cont 08/15/2020 12:54 PM FINDINGS: Lungs: Bilateral pulmonary infiltrates. Pleural spaces: Unremarkable. No pleural effusion. No pneumothorax. Heart/Mediastinum: Unremarkable. No cardiomegaly. Bones/joints: Unremarkable. IMPRESSION: Bilateral pulmonary infiltrates.
[2020-08-16] MEDS: Labetalol 100 MG Tab PO SCH (22:04)
[2020-08-16] MEDS ORDERED: Furosemide 20 MG/2 ML VIAL IVPUSH ONE (22:30)
--- NOTE | 2020-08-16 23:15 | CR ---
PROCEDURE INFORMATION: Exam: XR Chest Exam date and time: 08/16/2020 10:10 PM Age: 40 years old Clinical indication: Shortness of breath; Additional info: SOB TECHNIQUE: Imaging protocol: XR of the chest. Views: 2 views. COMPARISON: CR Chest 1V Frontal 08/16/2020 8:53 PM FINDINGS: Lungs: There are strandy and hazy opacities present in the mid lower hemithoraces bilaterally similar to those present earlier today although there may be a worsening in the right upper hemithorax. Pleural spaces: Unremarkable. No pleural effusion. No pneumothorax. Heart/Mediastinum: Unremarkable. No cardiomegaly. Bones/joints: Unremarkable. IMPRESSION: Bilateral infiltrates in the mid and lower hemithoraces compatible with a bilateral basilar pneumonia. There may be a slight worsening in the right upper hemithorax compared with earlier today.
[2020-08-17] MEDS: Simethicone 80 MG Tab.Chew PO PRN (02:55)
[2020-08-17] MEDS: Acetaminophen 325 MG Tab PO PRN ×3 (02:55→23:48)
[2020-08-17 06:33] LABS: ANION GAP 15.5 mEq/L (7-13); CHLORIDE,CL 105 mmol/L (98-107); SODIUM,NA 142 mmol/L (136-145)
--- NOTE | 2020-08-17 07:38 | PN ---
DATE: 08/16/2020 SUBJECTIVE: Initially, patient was going to be sent home. Please see Alberto Tejada's notes in regard to this. I evaluated the patient earlier today with him as well. Magnesium sulfate was stopped at approximately 1630 hours after 24 hours of magnesium sulfate being given, and per Dr. Hanson's recommendation, the patient was followed for approximately 4 hours, and during this time, after magnesium sulfate was off, the patient described some shortness of breath, worse with exertion, rates it 7 to 8/10 with 10 being worse on the scale and she suspects this is out of proportion to what should be expected being . She does note her swelling has improved. OBJECTIVE: Vital Signs: Last set of vitals; temperature 98.1, heart rate 94, blood pressure 157/94, respiratory rate 24, O2 saturation currently on room air is 93% to 94%. Urinary output between 7:30 this morning and 6 o'clock this evening 3575 mL out via urine output with Pope catheter in place, and between 1834 and 0556 last night through this morning, the patient had over 5000 mL out. Appearance: Patient sitting upright in her bed, nontoxic appearance. EOMs grossly intact. Mucous membranes are minimally dry but not severely dehydrated. Lungs: Clear to auscultation bilaterally. No increased work of breathing is noted. Heart: S1, S2. Tachycardia with heart rate between 100 to 120, but then on further monitoring, it was down into a normal range. Abdomen: Firm uterus, -3 below umbilicus. Extremities: Trace pedal edema. No calf pain. Deep tendon reflexes 3/4 bilaterally and symmetric in lower extremities. LABORATORY DATA: A stat CBC: White cell count 13, hemoglobin 11.2, platelets 279. Diff reveals 81% neutrophils, 10% lymphocytes, PT/INR 9.5/0.9. CMP: Anion gap was 13.7, glucose was 113, calcium was low at 7 and stable. AST was 39 which is decreasing. Alkaline phosphatase mildly elevated at 122. A brain natriuretic peptide was 577. Total protein 6.1, albumin 2.3. A portable chest x-ray, poor suspected inspiratory effort as well as angle of evaluation did reveal questionable cardiomegaly but difficult to discern. Difficult to determine fluid in the gutters and repeat chest x-ray will be done PA and lateral/two view. Chest x-ray reviewed by radiologist does reveal bilateral pulmonary infiltrates. EKG reviewed by me and ordered by Dr. Tejada does reveal sinus rhythm, rate of 78. Intervals reveal a first-degree AV block with GA interval of 208. [place] of 6. No obvious evidence of hypertrophy, ST changes, or significant Q-waves. ASSESSMENT/PLAN: Status post spontaneous vaginal delivery on 08/11/2020, now G2, P2 complicated by severe preeclampsia diagnosed yesterday, treated with 24 hours of magnesium sulfate, currently on labetalol 200 mg to be started b.i.d. now with continued elevated blood pressures but concerning symptoms with shortness of breath, worse with exertion noted prior to anticipated discharge. Because of this, labs have been done as above. There is a component of bilateral pulmonary infiltrates per radiologist's reading. We will get a better x-ray to further evaluate. Yesterday, CT of the chest did not have any note or concern of this. PE was not noted on the CT of the chest yesterday as well. EKG, as above. PLAN: Due to current findings, we will need to follow clinically and closely. We will obtain a chest x-ray that is more proper and may need to consider more monitoring and evaluation and management. At current time of dictation, patient appears stable and we will send her to chest x-ray and follow closely thereafter. Over 45 minutes at this point in time has been spent in critical care type management, evaluation of the patient. We will continue to follow as above. Plans were discussed with the patient. I did also discuss with the patient if there are further concerns that need further evaluation and management that cannot be done here, may need transfer to higher level care. [facility] /[id number]
--- NOTE | 2020-08-17 07:54 | PCM.PN ---
<Alberto Tejada - Last Filed: 08/17/20 07:59> - General Info Date of Service: 08/17/20 Admission Dx/Problem (Free Text): Admission Diagnosis/Problem Admission Diagnosis/Problem pre-eclampsia with severe features, Community acquired pneumonia Subjective Update: Patient is feeling better this morning, resting comfortably in bed in no acute distress. Her SOB is improved but still present. She still has a mild headache. No abdominal pain. She was able to get some sleep last night. She has no other complaints. Denies fever, chills, congestion, chest pain, or N/V. Functional Status: Reports: Pain Controlled, Tolerating Diet, Ambulating - Review of Systems General: Reports: No Symptoms HEENT: Reports: Headaches Pulmonary: Reports: Shortness of Breath Cardiovascular: Reports: Edema Gastrointestinal: Reports: No Symptoms Musculoskeletal: Reports: Back Pain Skin: Reports: No Symptoms Neurological: Reports: No Symptoms - Patient Data Vitals - Most Recent: Last Vital Signs Temp 98.4 F 08/17/20 03:00 Pulse 79 08/17/20 03:00 Resp 22 H 08/17/20 03:00 BP 147/78 H 08/17/20 03:00 Pulse Ox 92 L 08/17/20 03:00 Weight - Most Recent: 72.212 kg I&O - Last 24 Hours: Intake & Output 08/16/20 08/17/20 08/17/20 22:59 06:59 14:59 Intake Total 620 Output Total 3975 Balance -3355 Imaging Impressions - Last 24 Hours: Chest xray concerning for bilateral infiltrates suggestive of pneumonia. Lab Results Last 24 Hours: Laboratory Results - last 24 hr 08/16/20 08/16/20 08/16/20 Range/Units 14:20 21:20 21:20 WBC 13.0 H (5.0-10.0) 10^3/uL RBC 3.57 L (4.2-5.4) 10^6/uL Hgb 11.2 L (12.0-16.0) g/dL Hct 34.1 L (37.0-47.0) % MCV 95.5 (80-100) fL MCH 31.4 (27.0-34.0) pg MCHC 32.8 L (33.0-35.0) g/dL Plt Count 279 (150-450) 10^3/uL Neut % (Auto) 81.9 H (42.2-75.2) % Lymph % (Auto) 10.6 L (20.5-50.1) % Ada % (Auto) 5.6 (2-8) % Eos % (Auto) 1.7 (1.0-3.0) % Baso % (Auto) 0.2 (0.0-1.0) % Add Manual Diff Yes Neutrophils % (Manual) 77 H (42-75) % Band Neutrophils % 5 % Lymphocytes % (Manual) 15 L (20-50) % Atypical Lymphs % 0 % Monocytes % (Manual) 3 (2-8) % PT 9.5 (9.0-12.0) SEC INR 0.9 (0.9-1.2) Sodium (136-145) mmol/L Potassium (3.5-5.1) mmol/L Chloride (98-107) mmol/L Carbon Dioxide (21-32) mmol/L Anion Gap (7-13) mEq/L BUN (7-18) mg/dL Creatinine (0.55-1.02) mg/dL Est Cr Clr Drug Dosing mL/min Estimated GFR (MDRD) BUN/Creatinine Ratio (No establ ref range) Glucose (70-99) mg/dL Calcium (8.5-10.1) mg/dL Magnesium 5.9 H (1.8-2.4) mg/dL Total Bilirubin (0.2-1.0) mg/dL AST (15-37) U/L ALT (14-59) U/L Alkaline Phosphatase (46-116) U/L Troponin I High Sens (<=51) pg/mL B-Natriuretic Peptide (0-100) pg/ml Total Protein (6.4-8.2) g/dL Albumin (3.4-5.0) g/dL Globulin Albumin/Globulin Ratio 08/16/20 08/17/20 08/17/20 Range/Units 21:20 05:35 05:35 WBC 10.5 H (5.0-10.0) 10^3/uL RBC 3.31 L (4.2-5.4) 10^6/uL Hgb 10.3 L (12.0-16.0) g/dL Hct 32.0 L (37.0-47.0) % MCV 96.7 (80-100) fL MCH 31.1 (27.0-34.0) pg MCHC 32.2 L (33.0-35.0) g/dL Plt Count 284 (150-450) 10^3/uL Neut % (Auto) 70.6 (42.2-75.2) % Lymph % (Auto) 18.6 L (20.5-50.1) % Ada % (Auto) 8.4 H (2-8) % Eos % (Auto) 2.2 (1.0-3.0) % Baso % (Auto) 0.2 (0.0-1.0) % Add Manual Diff Neutrophils % (Manual) (42-75) % Band Neutrophils % % Lymphocytes % (Manual) (20-50) % Atypical Lymphs % % Monocytes % (Manual) (2-8) % PT (9.0-12.0) SEC INR (0.9-1.2) Sodium 140 142 (136-145) mmol/L Potassium 3.7 3.5 (3.5-5.1) mmol/L Chloride 105 105 (98-107) mmol/L Carbon Dioxide 25 25 (21-32) mmol/L Anion Gap 13.7 H 15.5 H (7-13) mEq/L BUN 8 10 (7-18) mg/dL Creatinine 0.88 0.86 (0.55-1.02) mg/dL Est Cr Clr Drug Dosing 81.81 83.71 mL/min Estimated GFR (MDRD) > 60 > 60 BUN/Creatinine Ratio 9.1 11.6 (No establ ref range) Glucose 113 H 96 (70-99) mg/dL Calcium 7.0 L 6.8 L (8.5-10.1) mg/dL Magnesium (1.8-2.4) mg/dL Total Bilirubin 0.3 0.3 (0.2-1.0) mg/dL AST 39 H 31 (15-37) U/L ALT 57 47 (14-59) U/L Alkaline Phosphatase 122 H 107 (46-116) U/L Troponin I High Sens 22 (<=51) pg/mL B-Natriuretic Peptide 577 H (0-100) pg/ml Total Protein 6.1 L 5.6 L (6.4-8.2) g/dL Albumin 2.3 L 2.0 L (3.4-5.0) g/dL Globulin 3.8 3.6 Albumin/Globulin Ratio 0.61 0.56 Nathanael Results Last 24 Hours: Microbiology 08/15/20 12:24 Urine Culture - Final Urine, Voided Med Orders - Current: Current Medications Acetaminophen (Acetaminophen 325 Mg Tab) 650 mg PO Q4H PRN PRN Reason: Pain Last Admin: 08/17/20 02:55 Dose: 650 mg Documented by: Calcium Gluconate (Calcium Gluconate 10% 1 Gm/10 Ml Sdv) 1 gm IV ASDIRECTED PRN PRN Reason: respiratory distress Diphenhydramine HCl (Diphenhydramine 25 Mg Tab) 25 mg PO BEDTIME PRN PRN Reason: Insomnia Magnesium Sulfate (Magnesium Sulfate In Water 20 Gm/500 Ml) 20 gm in 500 mls @ 50 mls/hr IV ASDIRECTED TEENA Last Admin: 08/16/20 15:00 Dose: 50 mls/hr Documented by: Ceftriaxone Sodium 1 gm/ (Sodium Chloride) 50 mls @ 100 mls/hr IV Q24H TEENA Azithromycin 500 mg/ Sodium (Chloride) 250 mls @ 250 mls/hr IV Q24H TEENA Labetalol HCl (Labetalol 100 Mg Tab) 200 mg PO BID TEENA Last Admin: 08/16/20 22:04 Dose: 200 mg Documented by: Melatonin (Melatonin 3 Mg Tab) 3 mg PO BEDTIME PRN PRN Reason: Insomnia Last Admin: 08/16/20 22:43 Dose: 3 mg Documented by: Simethicone (Simethicone 80 Mg Tab.Chew) 80 mg PO Q6H PRN PRN Reason: Abdominal Pain Last Admin: 08/17/20 02:55 Dose: 80 mg Documented by: Sodium Chloride (Sodium Chloride 0.9% 10 Ml Syringe) 10 ml FLUSH ASDIRECTED PRN PRN Reason: Keep Vein Open Last Admin: 08/15/20 13:54 Dose: 10 ml Documented by: Discontinued Medications Furosemide (Furosemide 20 Mg/2 Ml Vial) 20 mg IVPUSH ONETIME ONE Stop: 08/16/20 22:31 Last Admin: 08/16/20 22:43 Dose: 20 mg Documented by: Magnesium Sulfate 4 gm/ Premix 100 mls @ 300 mls/hr IV BOLUS ONE Stop: 08/15/20 14:36 Last Admin: 08/15/20 16:07 Dose: 300 mls/hr Documented by: Iopamidol (Iopamidol 755 Mg/Ml 100 Ml Bottle) 100 ml IVPUSH ONETIME ONE Stop: 08/15/20 12:43 Last Admin: 08/15/20 13:03 Dose: 80 ml Documented by: Labetalol HCl (Labetalol 20 Mg/4 Ml Syringe) 20 mg IVPUSH ONETIME ONE Stop: 08/15/20 13:31 Last Admin: 08/15/20 13:50 Dose: 20 mg Documented by: Labetalol HCl (Labetalol 20 Mg/4 Ml Syringe) 20 mg IVPUSH ONETIME ONE Stop: 08/15/20 15:45 Last Admin: 08/15/20 16:03 Dose: 20 mg Documented by: Labetalol HCl (Labetalol 20 Mg/4 Ml Syringe) 10 mg IVPUSH ONETIME STA Stop: 08/16/20 02:09 Last Admin: 08/16/20 02:24 Dose: 10 mg Documented by: Labetalol HCl (Labetalol 100 Mg Tab) 100 mg PO BID TEENA Last Admin: 08/16/20 08:35 Dose: 100 mg Documented by: Sertraline HCl (Sertraline 50 Mg Tab) 50 mg PO ONETIME ONE Stop: 08/16/20 16:31 Last Admin: 08/16/20 17:00 Dose: 50 mg Documented by: - Exam General: Alert, Oriented HEENT: Pupils Equal, Pupils Reactive, EOMI, Mucous Membr. Moist/[place] Neck: Supple Lungs: Clear to Auscultation, Normal Respiratory Effort Cardiovascular: Regular Rate, Regular Rhythm GI/Abdominal Exam: Normal Bowel Sounds, Soft, Non-Tender, No Organomegaly, No Distention, No Abnormal Bruit, No Mass, Pelvis Stable Extremities: Pedal Edema Skin: Warm, Dry, Intact Neurological: No New Focal Deficit Psy/Mental Status: Alert, Normal Affect, Normal Mood - Patient Data Lab Results Last 24 hrs: Laboratory Results - last 24 hr 08/16/20 08/16/20 08/16/20 Range/Units 14:20 21:20 21:20 WBC 13.0 H (5.0-10.0) 10^3/uL RBC 3.57 L (4.2-5.4) 10^6/uL Hgb 11.2 L (12.0-16.0) g/dL Hct 34.1 L (37.0-47.0) % MCV 95.5 (80-100) fL MCH 31.4 (27.0-34.0) pg MCHC 32.8 L (33.0-35.0) g/dL Plt Count 279 (150-450) 10^3/uL Neut % (Auto) 81.9 H (42.2-75.2) % Lymph % (Auto) 10.6 L (20.5-50.1) % Ada % (Auto) 5.6 (2-8) % Eos % (Auto) 1.7 (1.0-3.0) % Baso % (Auto) 0.2 (0.0-1.0) % Add Manual Diff Yes Neutrophils % (Manual) 77 H (42-75) % Band Neutrophils % 5 % Lymphocytes % (Manual) 15 L (20-50) % Atypical Lymphs % 0 % Monocytes % (Manual) 3 (2-8) % PT 9.5 (9.0-12.0) SEC INR 0.9 (0.9-1.2) Sodium (136-145) mmol/L Potassium (3.5-5.1) mmol/L Chloride (98-107) mmol/L Carbon Dioxide (21-32) mmol/L Anion Gap (7-13) mEq/L BUN (7-18) mg/dL Creatinine (0.55-1.02) mg/dL Est Cr Clr Drug Dosing mL/min Estimated GFR (MDRD) BUN/Creatinine Ratio (No establ ref range) Glucose (70-99) mg/dL Calcium (8.5-10.1) mg/dL Magnesium 5.9 H (1.8-2.4) mg/dL Total Bilirubin (0.2-1.0) mg/dL AST (15-37) U/L ALT (14-59) U/L Alkaline Phosphatase (46-116) U/L Troponin I High Sens (<=51) pg/mL B-Natriuretic Peptide (0-100) pg/ml Total Protein (6.4-8.2) g/dL Albumin (3.4-5.0) g/dL Globulin Albumin/Globulin Ratio 08/16/20 08/17/20 08/17/20 Range/Units 21:20 05:35 05:35 WBC 10.5 H (5.0-10.0) 10^3/uL RBC 3.31 L (4.2-5.4) 10^6/uL Hgb 10.3 L (12.0-16.0) g/dL Hct 32.0 L (37.0-47.0) % MCV 96.7 (80-100) fL MCH 31.1 (27.0-34.0) pg MCHC 32.2 L (33.0-35.0) g/dL Plt Count 284 (150-450) 10^3/uL Neut % (Auto) 70.6 (42.2-75.2) % Lymph % (Auto) 18.6 L (20.5-50.1) % Ada % (Auto) 8.4 H (2-8) % Eos % (Auto) 2.2 (1.0-3.0) % Baso % (Auto) 0.2 (0.0-1.0) % Add Manual Diff Neutrophils % (Manual) (42-75) % Band Neutrophils % % Lymphocytes % (Manual) (20-50) % Atypical Lymphs % % Monocytes % (Manual) (2-8) % PT (9.0-12.0) SEC INR (0.9-1.2) Sodium 140 142 (136-145) mmol/L Potassium 3.7 3.5 (3.5-5.1) mmol/L Chloride 105 105 (98-107) mmol/L Carbon Dioxide 25 25 (21-32) mmol/L Anion Gap 13.7 H 15.5 H (7-13) mEq/L BUN 8 10 (7-18) mg/dL Creatinine 0.88 0.86 (0.55-1.02) mg/dL Est Cr Clr Drug Dosing 81.81 83.71 mL/min Estimated GFR (MDRD) > 60 > 60 BUN/Creatinine Ratio 9.1 11.6 (No establ ref range) Glucose 113 H 96 (70-99) mg/dL Calcium 7.0 L 6.8 L (8.5-10.1) mg/dL Magnesium (1.8-2.4) mg/dL Total Bilirubin 0.3 0.3 (0.2-1.0) mg/dL AST 39 H 31 (15-37) U/L ALT 57 47 (14-59) U/L Alkaline Phosphatase 122 H 107 (46-116) U/L Troponin I High Sens 22 (<=51) pg/mL B-Natriuretic Peptide 577 H (0-100) pg/ml Total Protein 6.1 L 5.6 L (6.4-8.2) g/dL Albumin 2.3 L 2.0 L (3.4-5.0) g/dL Globulin 3.8 3.6 Albumin/Globulin Ratio 0.61 0.56 Result Diagrams: 08/17/20 05:35 08/17/20 05:35 Nathanael Results Last 24 hrs: Microbiology 08/15/20 12:24 Urine Culture - Final Urine, Voided Sepsis Event Note - Evaluation Sepsis Screening Result: No Definite Risk - Focused Exam Vital Signs: Vital Signs Temp Pulse Pulse Resp BP BP Pulse Ox 08/17/20 03:00 98.4 F 79 22 H 147/78 H 92 L 08/16/20 23:40 98.1 F 83 22 H 147/86 H 92 L 08/16/20 22:04 87 161/100 H - Problem List & Annotations (1) Pre-eclampsia, severe, condition SNOMED Code(s): 47598629, 285230340, 251622657 Code(s): O14.15 - SEVERE PRE-ECLAMPSIA, COMPLICATING THE PUERPERIUM Status: Acute (2) Pneumonia SNOMED Code(s): 663979775 Code(s): J18.9 - PNEUMONIA, UNSPECIFIED ORGANISM Status: Acute Qualifiers: Pneumonia type: due to unspecified organism Laterality: bilateral - Problem List Review Problem List Initiated/Reviewed/Updated: Yes - My Orders Last 24 Hours: My Active Orders 08/16/20 Breakfast General [Regular Diet] [DIET] 08/16/20 20:38 Intake and Output Strict [RC] ASDIRECTED 08/16/20 20:40 diphenhydrAMINE [Benadryl] 25 mg PO BEDTIME PRN 08/16/20 20:41 Melatonin 3 mg PO BEDTIME PRN 08/16/20 21:00 Labetalol [Normodyne] 200 mg PO BID 08/16/20 21:30 K Pad [Heat Therapy] [OM.PC] Routine 08/17/20 08:00 Azithromycin [Zithromax] 500 mg Sodium Chloride 0.9% [Normal Saline (AdvBag)] 250 ml IV Q24H cefTRIAXone [Rocephin] 1 gm Sodium Chloride 0.9% [Normal Saline] 50 ml IV Q24H - Plan Plan:: Severe Pre-eclampsia -Mg Sulfate per protocol - Stopped 08/16 at 1700 (24hrs total) -Monitor BPs -140s/80s this AM -Oral labetalol 200 mg BID -IV labetalol as needed for BP control if above 160/110 -IV 20 mg lasix given 08/16 - with about 1000 ml output -Vitals Q4hrs -Seizure precautions -Tylenol for headache -Simethicone for gas pain -Benadryl and melatonin for insomnia -Heating pad for back pain -General diet -Is&Os and Daily weights -CBC, CMP stable, trop negative, PT/INR negative, BNP 577 -Continue to monitor respiratory status, will discuss case with Dr. Lacy Community acquired pneumonia -CXR concering for bilateral infiltrates -O2 sats in the mid to low 90s -Will treat with Rocephin 1g/Azithromycin 500 mg daily -Keep O2 sats above 90% <Edd Tapia - Last Filed: 08/20/20 06:42> - Patient Data Vitals - Most Recent: Last Vital Signs Temp 97.6 F 08/18/20 11:56 Pulse 85 08/18/20 11:56 Resp 18 08/18/20 11:56 BP 135/86 08/18/20 11:56 Pulse Ox 93 L 08/18/20 11:56 Med Orders - Current: Current Medications Discontinued Medications Acetaminophen (Acetaminophen 325 Mg Tab) 650 mg PO Q4H PRN PRN Reason: Pain Last Admin: 08/18/20 06:55 Dose: 650 mg Documented by: Calcium Gluconate (Calcium Gluconate 10% 1 Gm/10 Ml Sdv) 1 gm IV ASDIRECTED PRN PRN Reason: respiratory distress Diphenhydramine HCl (Diphenhydramine 25 Mg Tab) 25 mg PO BEDTIME PRN PRN Reason: Insomnia Furosemide (Furosemide 20 Mg/2 Ml Vial) 20 mg IVPUSH ONETIME ONE Stop: 08/16/20 22:31 Last Admin: 08/16/20 22:43 Dose: 20 mg Documented by: Furosemide (Furosemide 20 Mg/2 Ml Vial) 20 mg IVPUSH Q8H [facility] Last Admin: 08/17/20 18:43 Dose: 20 mg Documented by: Magnesium Sulfate 4 gm/ Premix 100 mls @ 300 mls/hr IV BOLUS ONE Stop: 08/15/20 14:36 Last Admin: 08/15/20 16:07 Dose: 300 mls/hr Documented by: Magnesium Sulfate (Magnesium Sulfate In Water 20 Gm/500 Ml) 20 gm in 500 mls @ 50 mls/hr IV ASDIRECTED [facility] Last Admin: 08/16/20 15:00 Dose: 50 mls/hr Documented by: Ceftriaxone Sodium 1 gm/ (Sodium Chloride) 50 mls @ 100 mls/hr IV Q24H [facility] Last Admin: 08/17/20 09:18 Dose: Not Given Documented by: Azithromycin 500 mg/ Sodium (Chloride) 250 mls @ 250 mls/hr IV Q24H [facility] Last Admin: 08/17/20 09:18 Dose: Not Given Documented by: Azithromycin 500 mg/ Sodium (Chloride) 250 mls @ 250 mls/hr IV DAILY [facility] Last Admin: 08/18/20 11:06 Dose: 250 mls/hr Documented by: Ceftriaxone Sodium 1 gm/ (Sodium Chloride) 50 mls @ 100 mls/hr IV DAILY [facility] Last Admin: 08/18/20 10:25 Dose: 100 mls/hr Documented by: Iopamidol (Iopamidol 755 Mg/Ml 100 Ml Bottle) 100 ml IVPUSH ONETIME ONE Stop: 08/15/20 12:43 Last Admin: 08/15/20 13:03 Dose: 80 ml Documented by: Labetalol HCl (Labetalol 20 Mg/4 Ml Syringe) 20 mg IVPUSH ONETIME ONE Stop: 08/15/20 13:31 Last Admin: 08/15/20 13:50 Dose: 20 mg Documented by: Labetalol HCl (Labetalol 20 Mg/4 Ml Syringe) 20 mg IVPUSH ONETIME ONE Stop: 08/15/20 15:45 Last Admin: 08/15/20 16:03 Dose: 20 mg Documented by: Labetalol HCl (Labetalol 20 Mg/4 Ml Syringe) 10 mg IVPUSH ONETIME STA Stop: 08/16/20 02:09 Last Admin: 08/16/20 02:24 Dose: 10 mg Documented by: Labetalol HCl (Labetalol 100 Mg Tab) 100 mg PO BID [facility] Last Admin: 08/16/20 08:35 Dose: 100 mg Documented by: Labetalol HCl (Labetalol 100 Mg Tab) 200 mg PO BID [facility] Last Admin: 08/18/20 10:24 Dose: 200 mg Documented by: Melatonin (Melatonin 3 Mg Tab) 3 mg PO BEDTIME PRN PRN Reason: Insomnia Last Admin: 08/16/20 22:43 Dose: 3 mg Documented by: Nifedipine (Nifedipine 30 Mg Tab.Er) 30 mg PO DAILY [facility] Last Admin: 08/18/20 10:23 Dose: 30 mg Documented by: Sertraline HCl (Sertraline 50 Mg Tab) 50 mg PO ONETIME ONE Stop: 08/16/20 16:31 Last Admin: 08/16/20 17:00 Dose: 50 mg Documented by: Sertraline HCl (Sertraline 50 Mg Tab) 50 mg PO DAILY [facility] Last Admin: 08/18/20 10:25 Dose: 50 mg Documented by: Simethicone (Simethicone 80 Mg Tab.Chew) 80 mg PO Q6H PRN PRN Reason: Abdominal Pain Last Admin: 08/17/20 02:55 Dose: 80 mg Documented by: Sodium Chloride (Sodium Chloride 0.9% 10 Ml Syringe) 10 ml FLUSH ASDIRECTED PRN PRN Reason: Keep Vein Open Last Admin: 08/17/20 18:44 Dose: 10 ml Documented by: - Patient Data Result Diagrams: 08/17/20 05:35 08/17/20 05:35 - Plan Plan:: Seen with resident. Patient was personally seen and examined with the resident, Alberto Tejada. I reviewed the noted scribed on my behalf and necessary changes have been made to reflect my opinion on the history, exam, assessment, and plan and noted that Dr Lacy was asked to see the patient in consultation and assumed care on 08/17/20-please see his notes for further details.
[2020-08-17] MEDS ORDERED: cefTRIAXone 1 GM in Sodium Chloride 0.9% 50 ML IV SCH (08:00)
[2020-08-17] MEDS ORDERED: Azithromycin 500 MG in Sodium Chloride 0.9% 250 ML IV SCH (08:00)
[2020-08-17] MEDS: cefTRIAXone 1 GM in Sodium Chloride 0.9% 50 ML IV SCH (08:52)
[2020-08-17] MEDS: Labetalol 100 MG Tab PO SCH ×2 (08:54→20:58)
[2020-08-17] MEDS: Azithromycin 500 MG in Sodium Chloride 0.9% 250 ML IV SCH (10:36)
[2020-08-17] MEDS ORDERED: Furosemide 20 MG/2 ML VIAL IVPUSH SCH (17:30)
[2020-08-17] MEDS: Sertraline 50 MG Tab PO SCH (18:43)
[2020-08-17] MEDS: NIFEdipine 30 MG Tab.ER PO SCH (18:43)
[2020-08-17] MEDS: Sodium Chloride 0.9% 10 ML Syringe FLUSH PRN (18:44)
[2020-08-18] MEDS: Acetaminophen 325 MG Tab PO PRN (06:55)
[2020-08-18] MEDS: NIFEdipine 30 MG Tab.ER PO SCH (10:23)
[2020-08-18] MEDS: Labetalol 100 MG Tab PO SCH (10:24)
[2020-08-18] MEDS: Sertraline 50 MG Tab PO SCH (10:25)
[2020-08-18] MEDS: cefTRIAXone 1 GM in Sodium Chloride 0.9% 50 ML IV SCH (10:25)
[2020-08-18] MEDS: Azithromycin 500 MG in Sodium Chloride 0.9% 250 ML IV SCH (11:06)
[2020-08-18 11:57] VITALS: BP 135/86; PULSE 85
--- NOTE | 2020-08-20 07:36 | DISCH ---
INDICATION FOR ADMISSION: Ms. Trujillo is a 40-year-old 2, para 2-0-0-2 female who underwent a normal spontaneous vaginal delivery and was discharged to home on day #1. She is doing quite well. Her was complicated with gestational diabetes, diet controlled, but she had no history of hypertension, preeclampsia, or other issues besides advanced maternal age. She was admitted on 08/15/2020 at [facility] in [place]. On day #2, she was seen at the emergency department at [facility] for abdominal and back pain. Her blood pressure then was quite high, but she was discharged to home before she had a full workup. On admission here, her blood pressures were in the 160s to 170s over 90s to 110s. She did have elevated aswtxtc-[id number]-tcqwrsrtxg ratio over 0.3. She had headache and blurred vision. After admission, she was started on magnesium sulfate for 24 hours. She was given labetalol IV and then orally. Her blood pressures continued to remain elevated. She did have bilateral infiltrates in her lungs, so she was started on Lasix IV, and she had a BNP over 500. She did put out over 6000 mL of fluid and lost approximately 20 pounds during her stay. They also felt she had pneumonia, so she was started on azithromycin and Rocephin. Despite the labetalol 200 mg twice a day, her blood pressures remained elevated, so we did start Procardia XL 30 mg daily, and this brought her blood pressure down quite nicely along with the labetalol. Her headache dissipated. Her blurred vision improved. She had no other complications throughout her hospital stay. She had minimal lochia. She tolerated her diet well and ambulated quite well. Her Pope catheter was removed on hospital day , discharge date. LABORATORY AND DIAGNOSTIC STUDIES: On 08/15/2020, magnesium 4.3. On 08/16/2020, WBC 11.4, hemoglobin 10.4, hematocrit 32.5, and platelet count 259,000. CMP was normal with a magnesium level of 5.4. On 08/16/2020, later in the day, WBC 13.0, hemoglobin 11.2, hematocrit 34.1, and platelet count 279,000. PT 9.5 and INR 0.9. CMP was normal. She had a BNP of 577. On 08/16/2020, her CMP was normal except for slightly elevated AST of 43 and 39. On 08/17/2020, WBC 10.5, hemoglobin 10.3, hematocrit 32, and platelet count 284,000. BMP was normal with her AST going back to normal. Icpuluy-hp-aowhkvsosk ratio on 08/15/2020 was 552 and 322. EKG was normal. Chest x-ray, bilateral pulmonary infiltrates. Repeat chest x-ray revealed bilateral infiltrates in the mid and lower hemothoraces compatible with bilateral basilar pneumonia. DISCHARGE INSTRUCTIONS: 1. Discharge to home. 2. Follow up with Dr. Tapia next week in the office as scheduled. 3. No douching, tampons, or intercourse for 6 weeks. 4. Discharge instructions including activity, followup, medications, diet, and wound care were discussed with the patient. She understands these and is willing to comply with these. 5. Labetalol 200 mg twice a day. 6. Procardia XL 30 mg daily. 7. Omnicef and azithromycin until finished. DISCHARGE DIAGNOSES: 1. preeclampsia with severe features. 2. Magnesium sulfate prophylaxis. 3. Labetalol for blood pressure control. 4. Procardia XL for blood pressure control. 5. Bilateral pulmonary infiltrates. 6. Pulmonary edema with over 6000 mL of IV fluid out. 7. Bilateral pneumonia, treated with Rocephin and azithromycin and then orally after discharge. 8. All symptoms improved by discharge. [facility] /[id number]
== END 2020-08-18 12:11 | disposition home or self-care (01) | DRG 561 ==
LOC: DL.ED 11:29 → DL.MS 15:43 → OBSVTOIN 08-17 08:07
PROVIDERS: ADMIT Family Medicine; ATTEND Family Medicine
DX: O14.15 Severe pre-eclampsia, complicating the puerperium (principal); O99.345 Other mental disorders complicating the puerperium; F41.9 Anxiety disorder, unspecified; F32.9 Major depressive disorder, single episode, unspecified; Z20.822 Contact with and (suspected) exposure to COVID-19; O99.53 Diseases of the respiratory system complicating the puerperium; J18.9 Pneumonia, unspecified organism; Z88.1 Allergy status to other antibiotic agents; Z79.899 Other long term (current) drug therapy
CPT/HCPCS: 36415; 71045; 71046; 71260; 80053; 81001; 82570; 83615; 83690; 83735; 83880; 84156; 84484; 84550; 85025; 85379; 85610; 87086; 93005; 96365; 96366; 96374; 96375; 96376; 99285-25; A9270-GY; G0378; J0456; J0696; J1940; J3475; J3490; J7050; Q9967; U0002

== ENCOUNTER 2020-11-11 17:30 | Emergency (ER) | payer BC | END 2020-11-11 22:09 | disposition left against medical advice (07) | LOC: DL.ED 17:30 | DX: Z53.21 Procedure and treatment not carried out due to patient leaving prior to being seen by health care provider (principal) ==

== ENCOUNTER 2020-12-15 07:00 | Emergency (ER) | payer BC ==
[2020-12-15 07:24] VITALS: BP 156/84; PULSE 87
--- NOTE | 2020-12-15 08:13 | EDM.PDOC ---
<Stacey Roberto - Last Filed: 12/15/20 09:35> ED HPI GENERAL MEDICAL PROBLEM - General Chief Complaint: ENT Problem Stated Complaint: SORE THROAT/ TROUBLE SWALLOWING Time Seen by Provider: 12/15/20 08:12 Source of Information: Reports: Patient History Limitations: Reports: No Limitations - History of Present Illness INITIAL COMMENTS - FREE TEXT/NARRATIVE: The patient reports onset of symptoms 3 days ago including sore throat, malaise and fever. She reports she presented to clinic yesterday at which time she tested negative for Group A Strep. She has since been taking Tylenol and ibuprofen with mild relief. She denies cough, SOB or chest pain. No measured feer, chills, nausea or vomiting, abdominal pain, diarrhea or constipation. No rashes or myalgias. She denies recent contact with sick persons or contact with COVID-19 positive patients. She denies other symptoms or concerns at this time. Onset Date: 12/12/20 - Related Data Allergies Allergy/AdvReac Type Severity Reaction Status Date / Time clindamycin Allergy Hives Verified 12/15/20 07:17 lincomycin Allergy Hives Verified 12/15/20 07:17 Home Meds: Home Meds Sertraline HCl [Zoloft] 50 mg PO DAILY 12/16/15 [History] Cholecalciferol (Vitamin D3) [Vitamin D3] 1 tab PO BID 03/17/17 [History] Vit #49/Iron Fum/FA [Mini Tablet] 1 tab PO DAILY 11/01/18 [History] Ascorbic Acid [Vitamin C] 500 mg PO DAILY 06/17/20 [History] Ferrous Sulfate 325 mg PO DAILY 06/17/20 [History] Acetaminophen [Pain Reliever] 500 mg PO Q4HR PRN 08/15/20 [History] Ibuprofen 600 mg PO Q6HR PRN 08/15/20 [History] Cyclobenzaprine HCl 10 mg PO 11/11/20 [History] Naproxen [Naprosyn] 500 mg PO 11/11/20 [History] Past Medical History HEENT History: Reports: Impaired Vision, Other (See Below) Other HEENT History: wears glasses, hx strep throat Cardiovascular History: Reports: None Respiratory History: Reports: Bronchitis, Recurrent, Pneumonia, Recurrent Gastrointestinal History: Reports: GERD, Helicobacter Pylori Other Gastrointestinal History: H-pilori Genitourinary History: Reports: UTI, Recurrent [employer]ILDING [employer] History: Reports: Other BUILDING [employer]PENTER HEL[employer] History: Menorrhagia Musculoskeletal History: Reports: Other (See Below) Other Musculoskeletal History: plantar fasciitis, hx bilat wrist fxs Neurological History: Reports: None Psychiatric History: Reports: Anxiety, Depression Endocrine/Metabolic History: Reports: Diabetes, Gestational, Vitamin D Deficiency Hematologic History: Reports: Anemia, Iron Deficiency Immunologic History: Reports: None Oncologic (Cancer) History: Reports: None Dermatologic History: Reports: Other (See Below) Other Dermatologic History: MRSA - Infectious Disease History Infectious Disease History: Reports: Chicken Pox, MRSA - Past Surgical History Head Surgeries/Procedures: Reports: None Other HEENT Surgeries/Procedures: DX; Strepthroat 01/15/15 Cardiovascular Surgical History: Reports: None Respiratory Surgical History: Reports: None GI Surgical History: Reports: Colonoscopy, EGD Female Surgical History: Reports: None Endocrine Surgical History: Reports: None Neurological Surgical History: Reports: None Musculoskeletal Surgical History: Reports: None Oncologic Surgical History: Reports: None Social & Family History - Family History Family Medical History: No Pertinent Family History Endocrine/Metabolic: Reports: Diabetes, type II Oncologic: Reports: Breast, Lung - Tobacco Use Tobacco Use Status *Q: Never Tobacco User - Caffeine Use Caffeine Use: Reports: None - Recreational Drug Use Recreational Drug Use: No - Living Situation & Occupation Living situation: Reports: with Family ED ROS ENT - Review of Systems Review Of Systems: See Below Constitutional: Reports: Fever, Malaise HEENT: Reports: Throat Pain Respiratory: Reports: No Symptoms Cardiovascular: Reports: No Symptoms Endocrine: Reports: No Symptoms GI/Abdominal: Reports: No Symptoms : Reports: No Symptoms Musculoskeletal: Reports: No Symptoms Skin: Reports: No Symptoms Neurological: Reports: No Symptoms Psychiatric: Reports: No Symptoms Hematologic/Lymphatic: Reports: No Symptoms Immunologic: Reports: No Symptoms ED EXAM, ENT - Physical Exam Exam: See Below Exam Limited By: No Limitations General Appearance: Alert, WD/WN, No Apparent Distress Ears: Normal External Exam, Normal Canal, Hearing Grossly Normal, Normal TMs Nose: Normal Inspection, Normal Mucousa, No Blood Mouth/Throat: Normal Gums, Normal Lips, Normal Teeth, Pharyngeal Erythema, Tonsillar Exudates Head: Atraumatic, Normocephalic Neck: Normal Inspection, Supple, Non-Tender, Full Range of Motion. No: Lymphadenopathy (L), Lymphadenopathy (R) Respiratory/Chest: No Respiratory Distress, Lungs Clear, Normal Breath Sounds, No Accessory Muscle Use, Chest Non-Tender Cardiovascular: Normal Peripheral Pulses, Regular Rate, Rhythm, No Edema, No Gallop, No JVD, No Murmur, No Rub GI/Abdominal: Normal Bowel Sounds, Soft, Non-Tender, No Organomegaly, No Distention, No Abnormal Bruit, No Mass Extremities: Normal Inspection, Normal Range of Motion, Non-Tender, No Pedal Edema, Normal Capillary Refill Neurological: Alert, Oriented, Normal Cognition, Normal Gait, No Motor/Sensory Deficits Psychiatric: Normal Affect, Normal Mood Skin: Warm, Dry, Intact, Normal Color, No Rash Lymphatic: No Adenopathy Departure - Departure Time of Disposition: 08:15 Disposition: Home, Self-Care 01 Condition: Good Clinical Impression: Strep pharyngitis - Discharge Information *PRESCRIPTION DRUG MONITORING PROGRAM REVIEWED*: Not Applicable *COPY OF PRESCRIPTION DRUG MONITORING REPORT IN PATIENT SHENA: Not Applicable Instructions: Strep Throat, Adult, [id number] Referrals: PCP,None [Primary Care Provider] - Forms: ED Department Discharge Additional Instructions: Take Amoxicillin 500 mg by mouth twice daily for 10 days. Take Tylenol and/or Ibuprofen as needed for pain, fever or sore throat. Stay hydrated. May try hot water or tea with lemon and honey to help soothe sore throat. Follow-up with your primary care provider as needed. Sepsis Event Note (ED) - Evaluation Sepsis Screening Result: No Definite Risk <Marcial Jean-Baptiste - Last Filed: 12/15/20 10:05> Course - Vital Signs Last Recorded V/S: Last Vital Signs Temp 98.2 F 12/15/20 07:17 Pulse 87 12/15/20 07:17 Resp 16 12/15/20 07:17 BP 156/84 H 12/15/20 07:17 Pulse Ox 99 12/15/20 07:17 - Orders/Labs/Meds Meds: Medications Discontinued Medications Generic Name Dose Route Start Last Admin Trade Name Freq PRN Reason Stop Dose Admin Amoxicillin 500 mg 12/15/20 08:14 12/15/20 08:52 Amoxicillin 500 Mg Cap PO 12/15/20 08:15 500 mg ONETIME ONE Administration - Re-Assessments/Exams Free Text/Narrative Re-Assessment/Exam: 12/15/20 I saw and evaluated the patient. Discussed with resident and agree with residents findings and plan as documented in the residents note. Sepsis Event Note (ED) - Focused Exam Vital Signs: Vital Signs Temp Pulse Resp BP Pulse Ox 12/15/20 07:17 98.2 F 87 16 156/84 H 99
[2020-12-15] MEDS ORDERED: Amoxicillin 500 MG Cap PO ONE (08:14)
== END 2020-12-15 08:54 | disposition home or self-care (01) ==
LOC: DL.ED 07:00
DX: J02.0 Streptococcal pharyngitis (principal); D50.9 Iron deficiency anemia, unspecified; Z88.1 Allergy status to other antibiotic agents; Z79.899 Other long term (current) drug therapy
CPT/HCPCS: 87430; 99283; A9270

== ENCOUNTER 2022-03-30 17:01 | Emergency (ER) | payer BC ==
[2022-03-30] MEDS ORDERED: Cyclobenzaprine 10 MG Tab PO ONE (17:02)
[2022-03-30] MEDS ORDERED: Ketorolac 10 MG Tab PO ONE (17:02)
[2022-03-30] MEDS: Orphenadrine 60 MG/2 ML Inj IM ONE (18:46)
[2022-03-30] MEDS: Ketorolac 30 MG/ML SDV IM ONE (18:47)
[2022-03-30] MEDS: Ketorolac 10 MG Tab ONE (19:11)
[2022-03-30] MEDS: Cyclobenzaprine 10 MG Tab ONE (19:11)
[2022-03-30 19:12] VITALS: BP 140/113; PULSE 82
== END 2022-03-30 19:12 | disposition home or self-care (01) ==
LOC: DL.ED 17:01
DX: G44.86 Cervicogenic headache (principal); H61.22 Impacted cerumen, left ear; R03.0 Elevated blood-pressure reading, without diagnosis of hypertension; D64.9 Anemia, unspecified; Z88.1 Allergy status to other antibiotic agents; Z79.899 Other long term (current) drug therapy
CPT/HCPCS: 96372; 99283; A9270-GY; J1885; J2360

== ENCOUNTER 2022-10-06 07:44 | Day surgery (SDC) | payer BC ==
[~2022-10-06 07:44] MED LIST changes: +Dextrose 5%-0.45% NaCl 1,000 ML IV SCH; -Midazolam 1 MG/ML 2 ML SDV ONE; -Sodium Chloride 0.9% 10 ML Syringe FLUSH PRN; -fentaNYL 100 MCG/2 ML SDV ONE
[2022-10-06] MEDS ORDERED: fentaNYL 100 MCG/2 ML SDV ONE (08:11)
[2022-10-06] MEDS ORDERED: Midazolam 1 MG/ML 2 ML SDV ONE (08:11)
[2022-10-06] MEDS ORDERED: fentaNYL 100 MCG/2 ML SDV IV ONE ×6 (08:45→09:01)
[2022-10-06] MEDS ORDERED: Midazolam 1 MG/ML 2 ML SDV IV ONE ×6 (08:46→08:57)
[2022-10-06 10:16] VITALS: BP 107/70; PULSE 62
== END 2022-10-06 10:35 | disposition home or self-care (01) ==
LOC: DL.ENDO 07:44
PROVIDERS: ATTEND Internal Medicine Gastroenterology
DX: K51.911 Ulcerative colitis, unspecified with rectal bleeding (principal); K64.4 Residual hemorrhoidal skin tags; K30 Functional dyspepsia; E66.09 Other obesity due to excess calories; F41.1 Generalized anxiety disorder; F32.A Depression, unspecified; F41.0 Panic disorder [episodic paroxysmal anxiety]; Z88.1 Allergy status to other antibiotic agents; Z68.35 Body mass index [BMI] 35.0-35.9, adult
CPT/HCPCS: 81025; J2250; J3010; J7042

== ENCOUNTER 2022-11-04 07:05 | Day surgery (SDC) | payer BC, OTHER ==
[2022-11-04] MEDS ORDERED: Midazolam 1 MG/ML 2 ML SDV ONE (07:15)
[2022-11-04] MEDS ORDERED: fentaNYL 100 MCG/2 ML SDV ONE (07:15)
[2022-11-04] MEDS ORDERED: fentaNYL 100 MCG/2 ML SDV IV ONE ×2 (07:50→07:51)
[2022-11-04] MEDS ORDERED: Midazolam 1 MG/ML 2 ML SDV IV ONE ×2 (07:51→07:52)
[2022-11-04 09:16] VITALS: BP 111/52; PULSE 67
== END 2022-11-04 09:35 | disposition home or self-care (01) ==
LOC: DL.ENDO 07:05
PROVIDERS: ATTEND Internal Medicine Gastroenterology
DX: D50.9 Iron deficiency anemia, unspecified (principal); K62.89 Other specified diseases of anus and rectum; K31.89 Other diseases of stomach and duodenum; K25.9 Gastric ulcer, unspecified as acute or chronic, without hemorrhage or perforation; K21.9 Gastro-esophageal reflux disease without esophagitis; F41.1 Generalized anxiety disorder; E66.09 Other obesity due to excess calories; Z68.35 Body mass index [BMI] 35.0-35.9, adult; Z88.1 Allergy status to other antibiotic agents
CPT/HCPCS: 81025; 87077; J2250; J3010; J7042

== ENCOUNTER 2023-11-22 12:43 | Emergency (ER) | payer BC, MEDICAID ==
[2023-11-22] MEDS: Take Home: Benzonatate 100 MG, 6 Cap Pack PO ONE (13:15)
[2023-11-22] MEDS: Take Home: Doxycycline 100 MG Cap, 4 Cap Pack PO ONE (13:15)
[2023-11-22 13:20] VITALS: BP 132/96; PULSE 101
[2023-11-22] MEDS: Ketorolac 30 MG/ML SDV IM ONE (13:24)
== END 2023-11-22 13:30 | disposition home or self-care (01) ==
LOC: DL.ED 12:43
DX: J18.9 Pneumonia, unspecified organism (principal); K21.9 Gastro-esophageal reflux disease without esophagitis; Z86.16 Personal history of COVID-19; Z79.899 Other long term (current) drug therapy; Z88.1 Allergy status to other antibiotic agents
CPT/HCPCS: 96372; 99283; 99284; A9270-GY; J1885

== ENCOUNTER 2023-11-28 09:37 | Emergency (ER) | payer BC, MEDICAID ==
[2023-11-28 10:09] VITALS: BP 160/102; PULSE 90
[2023-11-28 10:11] LABS: BASOPHILS PERCENT AUTO 0.3 % (0.0-1.0); EOSINOPHILS PERCENT AUTO 7.7 % (1.0-3.0); HEMATOCRIT 46.2 % (37.0-47.0); HEMOGLOBIN 15.1 g/dL (12.0-16.0); LYMPHOCYTES PERCENT AUTO 21.2 % (20.5-50.1); MEAN CORPUSCULAR HEMOGLOBIN 29.3 pg (27.0-34.0); MEAN CORPUSCULAR HGB CONC 32.7 g/dL (33.0-35.0); MEAN CORPUSCULAR VOLUME 89.7 fL (80-100); NEUTROPHILS PERCENT AUTO 64.8 % (42.2-75.2); PLATELET COUNT,PLT 360 10^3/uL (150-450); RED BLOOD CELL COUNT 5.15 10^6/uL (4.2-5.4); WHITE BLOOD CELL COUNT,WBC 11.1 10^3/uL (5.0-10.0)
[2023-11-28] MEDS: Albuterol/Ipratropium 3.0-0.5 MG/3 ML Neb Soln NEB ONE (10:11)
[2023-11-28 10:33] LABS: A/G RATIO 0.87; ALANINE AMINOTRANSFERASE,ALT 18 U/L (14-59); ALBUMIN 3.3 g/dL (3.4-5.0); ALKALINE PHOSPHATASE 111 U/L (46-116); ANION GAP 13.8 mEq/L (7-13); ASPARTATE AMNIOTRANSFERASE,AST 11 U/L (15-37); BILIRUBIN TOTAL 0.3 mg/dL (0.2-1.0); BLOOD UREA NITROGEN,BUN 9 mg/dL (7-18); BUN/CREATININE RATIO 12.2 (No establ ref range); CALCIUM 8.8 mg/dL (8.5-10.1); CARBON DIOXIDE,CO2 24 mmol/L (21-32); CHLORIDE,CL 107 mmol/L (98-107); CREATININE 0.74 mg/dL (0.55-1.02); EST CRCL DRUG DOSING (CG) 94.34 mL/min; ESTIMATED GFR 102 mL/min (>=60); GLUCOSE RANDOM 99 mg/dL (70-99); MAGNESIUM 1.9 mg/dL (1.8-2.4); POTASSIUM,K 3.8 mmol/L (3.5-5.1); PROTEIN TOTAL,TP 7.1 g/dL (6.4-8.2); SODIUM,NA 141 mmol/L (136-145)
[2023-11-28 10:34] LABS: B-TYPE NATRIURETIC PEPTIDE,BNP < 5 pg/ml (0-100)
== END 2023-11-28 11:55 | disposition home or self-care (01) ==
LOC: DL.ED 09:37
DX: J40 Bronchitis, not specified as acute or chronic (principal); K21.9 Gastro-esophageal reflux disease without esophagitis; Z86.16 Personal history of COVID-19; Z88.1 Allergy status to other antibiotic agents
CPT/HCPCS: 36415; 71046; 80053; 83735; 83880; 84484; 85025; 85610; 87804; 93005; 94640; 99285; J7620-GY

== ENCOUNTER 2024-08-22 07:31 | Day surgery (SDC) | payer BC, MEDICAID ==
[2024-08-22] MEDS ORDERED: Propofol 200 MG/20 ML SDV IV ONE (07:32)
[2024-08-22] MEDS ORDERED: Lactated Ringers 1,000 ML IV ONE (07:32)
[2024-08-22] MEDS: Lactated Ringers 1,000 ML IV SCH (08:00)
[2024-08-22] MEDS ORDERED: Propofol 200 MG/20 ML SDV ONE (09:00)
[2024-08-22 09:58] VITALS: BP 123/82; PULSE 70
== END 2024-08-22 10:07 | disposition home or self-care (01) ==
LOC: DL.ENDO 07:31
PROVIDERS: ATTEND Internal Medicine Gastroenterology
DX: K21.9 Gastro-esophageal reflux disease without esophagitis (principal); I10 Essential (primary) hypertension; E66.09 Other obesity due to excess calories; Z88.8 Allergy status to other drugs, medicaments and biological substances; Z86.16 Personal history of COVID-19; Z68.35 Body mass index [BMI] 35.0-35.9, adult
CPT/HCPCS: 00731; J2003; J2704; J7120

== ENCOUNTER 2024-08-26 06:41 | Day surgery (SDC) | payer BC, MEDICAID ==
[2024-08-26] MEDS: Lactated Ringers 1,000 ML IV SCH (07:05)
[2024-08-26] MEDS ORDERED: Propofol 200 MG/20 ML SDV ONE (08:41)
[2024-08-26 08:54] VITALS: BP 123/91; PULSE 61
== END 2024-08-26 09:08 | disposition home or self-care (01) ==
LOC: DL.ENDO 06:41
PROVIDERS: ATTEND Internal Medicine Gastroenterology
DX: K51.219 Ulcerative (chronic) proctitis with unspecified complications (principal); I10 Essential (primary) hypertension; Z88.1 Allergy status to other antibiotic agents
CPT/HCPCS: 00811; 45380; J7120